=== PATIENT | male | born 1975 | race Caucasian/White ===

== ENCOUNTER 2022-07-31 01:00 | Inpatient (IN) ==
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
[2022-07-31] MEDS ORDERED: PIPERACILLIN SODIUM/TAZOBACTAM 3.375 GM in DEXTROSE 5% IN WATER 50 ML IV SCH (01:30)
[2022-07-31 01:40] LABS: POC Calcium, Ionized 1.12 (1.16-1.32); POC Creatinine 1.3 (0.6-1.2); POC Potassium 3.7 (3.3-5.1)
[2022-07-31 02:26] LABS: Basophils # (Auto) 0.05 K/mcL (0.00-0.30); Basophils % (Auto) 0.8 % (0.0-2.0); Eosinophils % (Auto) 1.5 % (0.0-7.0); Hematocrit 42.5 % (40.1-51.0); Hemoglobin 12.5 g/dL (13.7-17.5); Lymphocytes # (Auto) 1.13 K/mcL (1.50-4.80); Mean Cell Volume 89.7 fL (80.0-100.0); Mean Corpuscular HGB Conc 29.4 g/dL (31.0-36.0); Mean Platelet Volume 9.9 fL (8.8-12.5); Monocytes # (Auto) 0.72 K/mcL (0.10-0.90); Monocytes % (Auto) 10.8 % (1.0-12.0); Neutrophils % (Auto) 69.6 % (38.0-78.0); Platelet Count 155 K/mcL (140-440); RBC 4.74 M/mcL (4.63-6.08); Red Cell Distribution Width 15.1 % (11.5-14.5); WBC 6.7 K/mcL (4.5-11.0)
[2022-07-31] MEDS ORDERED: ACETAMINOPHEN 500 MG TABLET PO PRN ×2 (03:32→08:36)
[2022-07-31] MEDS: PIPERACILLIN SODIUM/TAZOBACTAM 3.375 GM in DEXTROSE 5% IN WATER 50 ML IV SCH ×2 (07:00→09:03)
[2022-07-31 08:35] LABS: ALT/SGPT 12 U/L (<40); AST/SGOT 21 U/L (<40); Albumin 3.4 gm/dL (3.2-5.2); Albumin/Globulin Ratio 0.7 (1.0-2.3); Alkaline Phosphatase 123 U/L (39-117); Bilirubin,Direct 0.5 mg/dL (<0.3); Blood Urea Nitrogen 16 mg/dL (6-20); Calcium 9.3 mg/dL (8.6-10.4); Carbon Dioxide 24 mmol/L (22-30); Chloride 98 mmol/L (96-108); Globulin 4.6 gm/dL (2.2-3.7); Glomerular Filtration Rate 65; Glucose 131 mg/dL (70-105); Lactate Dehydrogenase 263 U/L (135-225); Phosphorous 2.9 mg/dL (2.5-4.5); Triglycerides 96 mg/dL (<150); Uric Acid 7.2 mg/dL (2.5-8.0)
--- NOTE | 2022-07-31 08:49 | Internal Med History&Physical ---
HPI History of Present Illness Patient information: Note initiated : 07/31/22 at 8:41 am Service Date, if different from initiated Date: [] Patient: Mendel Ingram a 47 y/o M admitted on 07/31/22 for enlarged testicles and has suicide ideations. Chief Complaint: [] History of present illness: Mr. Ingram is a 47 year old male with a history of heart failure, hypertension, hydrocele, homelessness, morbid obesity was brought to the ED after someone overheard him talking about killing himself and called the police. In the ED, the patient denied suicidal ideation. He is frustrated because he is homeless, his vehicle is not functioning, he does not have a source of heat. Per report, the patient has been living in a truck in the local [facility] parking lot. In the ED, the patient was found to be severely volume overloaded and to have cellulitis in his scrotum and inner thighs. Patient was given IV antibiotics, hospital medicine was consulted for admission. After discussing the patient's medical history in more detail, he says that he does have a history of heart failure but has not been taking diuretics for some time because he ran out of medications. The patient says he also has obstructive sleep apnea and sleeps much better with the CPAP. A Romero catheter placement was attempted however unsuccessful because of scrotal edema. In the ED, the patient was afebrile, no leukocytosis however the patient's scrotum and inner thighs are erythematous, warm and tender suggestive of a cellulitis. This is probably been resident for some time. Patient is moderately hypertensive, creatinine was 1.3. The patient is severely volume overloaded on exam. Review of system Constitutional: no fever, fatigue, or weight loss Eyes: no vision changes or pain Cardiovascular: no chest pain, no palpitations Respiratory: no cough or dyspnea Gastrointestinal: no abdominal pain, no nausea, vomiting, or diarrhea Genitourinary: Severe scrotal edema and tenderness. Musculoskeletal: Positive for bilateral lower extremity and scrotal edema. Integumentary: Positive for redness and tenderness in scrotum, groin and inner thighs. Neurological: no focal weakness or numbness Psychiatric: Positive for anxiety and depressed mood, denies suicidal ideation. Physical exam Head: Atraumatic, normal inspection. Eyes: normal appearance, no scleral icterus. Neck: full ROM Respiratory: no respiratory distress. Cardiovascular: normal rate and rhythm, S1, S2. GI/Abdominal: Obesely distended, soft, nontender, no guarding. : Erythematous and edematous scrotum, exquisitely tender to palpation. Extremities: Bilateral 3+ pitting edema, to full range of motion, nontender. Neurological: CN II-XII intact, intact motor, intact sensation. Psychiatric: Mildly anxious. Skin: Erythematous, warmth, tenderness in scrotum, groin, inner thighs consistent with cellulitis. PFSH PFSH All Active Problems (Updated 07/31/22 @ 02:54 by Kunal Barrientos MD) Congestive heart failure (Acute) Otalgia (Acute) Sinus pressure (Acute) Headache (Acute) Anxiety (Acute) Abrasion of ankle, right (Acute) History of acute congestive heart failure (Acute) Pedal edema (Acute) Medication refill (Acute) Acute exacerbation of CHF (congestive heart failure) (Acute) Asthma exacerbation (Acute) Acute exacerbation of CHF (congestive heart failure) (Acute) Pneumonia involving right lung (Acute) Sepsis (Acute) Weakness (Acute) Erysipelas (Acute) Bilateral hydrocele (Acute) Urinary tract infection (Acute) Urinary retention (Acute) Medical History (Updated 07/31/22 @ 02:54 by Kunal Barrientos MD) Hypertension Social History (Updated 09/26/18 @ 12:38 by PAOLA Finley) smoking status: Current every day smoker and Never smoker MEDS/ALLERGIES Home Medications and Allergies Home Medications Medication Instructions Recorded Confirmed Type tamsulosin 0.4 mg capsule 0.4 mg PO HS #30 caps 09/17/18 09/26/18 Rx chlorhexidine gluconate 2 % 2 % topical .once daily #64 ea 09/25/18 09/26/18 Rx towelette mupirocin 2 % topical ointment 1 applic topical BID #30 grams 09/25/18 09/26/18 Rx lisinopril PO QDAY 09/26/18 09/26/18 History sulfamethoxazole 800 1 tab PO QDAY 09/26/18 09/26/18 History mg-trimethoprim 160 mg tablet fluticasone propionate 50 1 spray intranasal QDAY #16 grams 05/19/21 Rx mcg/actuation nasal spray,suspension (24 Hour Allergy Relief) furosemide 20 mg tablet (Lasix) 20 mg PO BID #20 tabs 12/30/21 Rx Allergies Allergy/AdvReac Type Severity Reaction Status Date / Time No Known Drug Allergies Allergy Verified 07/27/22 18:56 EXAM Constitutional Vitals: Temp Pulse Resp BP Pulse Ox O2 Del Method 98.4 F 113 H 14 159/86 92 07/31/22 08:00 07/31/22 08:00 07/31/22 08:00 07/31/22 08:00 07/31/22 08:00 07/31/22 08:00 DATA Data Completed and Pending Labs: Labs from last 24 hours 07/31/22 07/31/22 07/31/22 01:35 01:35 01:34 WBC RBC Hgb Hct POC Hct 42.0 MCV MCH MCHC RDW Plt Count MPV Immature Gran % (Auto) Neut % (Auto) Lymph % (Auto) [place] % (Auto) Eos % (Auto) Baso % (Auto) Lymph # (Auto) [place] # (Auto) Eos # (Auto) Baso # (Auto) Immature Gran # Absolute Neutrophils POC Sodium 141 Sodium 137 POC Potassium 3.7 Potassium 3.7 POC Chloride 101 Chloride 98 Carbon Dioxide 24 POC Total CO2 31.0 H Anion Gap 15.0 POC BUN 19 BUN 16 Creatinine 1.3 H POC Creatinine 1.3 H GFR Calculation 65 Glucose 131 H POC Glucose 132 H Uric Acid 7.2 Calcium 9.3 POC WB Ioniz Calcium 1.12 L Phosphorus 2.9 Magnesium 2.2 Total Bilirubin 1.0 Direct Bilirubin 0.5 H GGT 29 AST 21 ALT 12 Alkaline Phosphatase 123 H Lactate Dehydrogenase 263 H C-Reactive Protein 9.10 H NT-Pro-B Natriuret Pep 4369.0 H Total Protein 8.0 Albumin 3.4 Globulin 4.6 H Albumin/Globulin Ratio 0.7 L Triglycerides 96 07/31/22 01:34 WBC 6.7 RBC 4.74 Hgb 12.5 L Hct 42.5 POC Hct MCV 89.7 MCH 26.4 MCHC 29.4 L RDW 15.1 H Plt Count 155 MPV 9.9 Immature Gran % (Auto) 0.3 Neut % (Auto) 69.6 Lymph % (Auto) 17.0 [place] % (Auto) 10.8 Eos % (Auto) 1.5 Baso % (Auto) 0.8 Lymph # (Auto) 1.13 L [place] # (Auto) 0.72 Eos # (Auto) 0.10 Baso # (Auto) 0.05 Immature Gran # 0.02 Absolute Neutrophils 4.64 POC Sodium Sodium POC Potassium Potassium POC Chloride Chloride Carbon Dioxide POC Total CO2 Anion Gap POC BUN BUN Creatinine POC Creatinine GFR Calculation Glucose POC Glucose Uric Acid Calcium POC WB Ioniz Calcium Phosphorus Magnesium Total Bilirubin Direct Bilirubin GGT AST ALT Alkaline Phosphatase Lactate Dehydrogenase C-Reactive Protein NT-Pro-B Natriuret Pep Total Protein Albumin Globulin Albumin/Globulin Ratio Triglycerides A/P Narrative A/P Narrative: Assessment: 47 year old male with a history of heart failure, hypertension, hydrocele, homelessness, morbid obesity admitted for scrotal edema and cellulitis in the setting of anasarca likely secondary to heart failure. The patient says he ran out of his Lasix and has been accumulating fluid ever since. #Cellulitis of scrotum, groin and inner thighs #Scrotal edema likely secondary to heart failure #Anasarca likely secondary to heart failure #Acute on chronic heart failure, unspecified #Mildly elevated creatinine. #Intertrigo #Adjustment disorder #Anxiety #Obstructive sleep apnea #Severe obesity #Homelessness Plan -Ceftriaxone 2 g IV every 24 hours for now. -Start Lasix 40 mg IV every 24 hours after Romero catheter placed by urology. -Monitor renal function, urine output, daily weights. -Analgesics as needed. -Follow blood cultures x2. -Urinalysis with reflex to culture. -Ultrasound of scrotum. -Urology consulted for difficult indwelling Romero catheter placement and also to evaluate scrotum. -Transthoracic echocardiogram. -Topical nystatin for intertrigo. -Low-sodium diet. -Consider Lasix infusion depending on response to Lasix IV bolus. -DVT prophylaxis: Lovenox -CODE STATUS: Full Disposition: TBD Time Spent With Patient Time: Total time spent is greater than 50% in coordination of care (as documented) at patient's floor/unit and/or counseling patient:
[2022-07-31] MEDS ORDERED: NYSTATIN POWDER BOTTLE 15GM TOPICAL PRN (08:55)
[2022-07-31] MEDS ORDERED: LACTULOSE 20 GM/30 ML ORAL.SOL PO PRN (09:02)
[2022-07-31] MEDS ORDERED: SENNOSIDES 1 TABLET PO PRN (09:02)
[2022-07-31] MEDS ORDERED: ONDANSETRON 4 MG/2 ML VIAL IV PRN ×2 (09:02→13:10)
--- NOTE | 2022-07-31 09:45 | Urology Consult Note ---
HPI Date of Consult Consult Date: 07/31/22 Requesting physician: Torres Pino Primary Care Provider: PCP No Consult Narrative Patient Information: Note initiated : 07/31/22 at 9:44 am Service Date, if different from initiated Date: [] Patient: Mendel is a 47 year old male with a complicated medical history. He has a history of heart failure, hypertension, bilateral hydroceles,and morbid obesity.He is also evidently homeless and lives in his truck in the [facility] parking lot. He was brought to the ED last night after someone overheard him talking about killing himself and called the police. The patient denied suicidal ideation. He is frustrated because he is homeless, his vehicle is not functioning, he does not have a source of heat. He was evaluated and was found to be severely volume overloaded and to have cellulitis/edema in his scrotum and inner thighs. A Romero catheter placement was attempted but was unsuccessful due to his scrotal edema.Scrotal US was ordered and is currently being performed. Prior scrotal US was reportedly obtained this past March at [facility], a copy of the report was obtained for review. Urology consultation was obtained. In speaking with the [employer] tech it appears the the patient has significant scrotal edema without summer abscess. There are bilateral septated hydroceles that are apparently unchagned from his last scrotal US. He denies difficulty with urination and reports a good urinary stream. He reports a history of kidney stones. He reports that his nutrition is poor. Sometimes he eats. Sometimes he does not. Chief Complaint: [Incontinence, inability to place Romero catheter, Scrotal edema] Chief complaint: Incontinence, inability to place Romero catheter, Scrotal edema Reason for consult: Incontinence, inability to place Romero catheter, Scrotal edema cc:: CC: Torres Pino MD Review of Systems All systems: reviewed and no additional remarkable complaints except as stated Constitutional Constitutional: Present as per HPI, stops breathing during sleep, weakness and weight gain Cardiovascular Cardiovascular: Present edema, leg edema and pedal edema Genitourinary Genitourinary: as per HPI and scrotal swelling Integumentary Integumentary: Present swelling Psychiatric Psychiatric: Present depression and hopelessness PFSH PFSH All Active Problems (Updated 07/31/22 @ 11:04 by Darwin Newton MD) Urethral stricture (Acute) Scrotal edema (Chronic) Urinary tract infection (Acute) Urinary retention (Acute) Congestive heart failure (Chronic) Otalgia (Acute) Sinus pressure (Acute) Headache (Acute) Anxiety (Acute) Abrasion of ankle, right (Acute) History of acute congestive heart failure (Acute) Pedal edema (Acute) Medication refill (Acute) Acute exacerbation of CHF (congestive heart failure) (Acute) Asthma exacerbation (Acute) Acute exacerbation of CHF (congestive heart failure) (Acute) Pneumonia involving right lung (Acute) Sepsis (Acute) Weakness (Acute) Erysipelas (Acute) Bilateral hydrocele (Chronic) Medical History (Updated 07/31/22 @ 11:04 by Darwin Newton MD) Hypertension Social History smoking status: Current every day smoker and Never smoker MEDS/ALLERGIES Home Medications and Allergies Home Medications Medication Instructions Recorded Confirmed Type tamsulosin 0.4 mg capsule 0.4 mg PO HS #30 caps 09/17/18 09/26/18 Rx chlorhexidine gluconate 2 % 2 % topical .once daily #64 ea 09/25/18 09/26/18 Rx towelette mupirocin 2 % topical ointment 1 applic topical BID #30 grams 09/25/18 09/26/18 Rx lisinopril PO QDAY 09/26/18 09/26/18 History sulfamethoxazole 800 1 tab PO QDAY 09/26/18 09/26/18 History mg-trimethoprim 160 mg tablet fluticasone propionate 50 1 spray intranasal QDAY #16 grams 05/19/21 Rx mcg/actuation nasal spray,suspension (24 Hour Allergy Relief) furosemide 20 mg tablet (Lasix) 20 mg PO BID #20 tabs 12/30/21 Rx Allergies Allergy/AdvReac Type Severity Reaction Status Date / Time No Known Drug Allergies Allergy Verified 07/27/22 18:56 Physical Examination Vital Signs Vital signs: Temp Pulse Resp BP Pulse Ox O2 Del Method 98.4 F 113 H 14 159/86 92 07/31/22 08:00 07/31/22 08:00 07/31/22 08:00 07/31/22 08:00 07/31/22 08:38 07/31/22 08:38 General physical appearance General physical exam: well nourished, chronically ill and obese Eyes Eye exam: PERRL ENT ENT exam: normal nares and no hearing loss Head Head exam IM: Present atraumatic, normal inspection and normocephalic Neck Neck exam: trachea midline Cardiovascular Cardiovascular exam IM: Present normal rate and rhythm Respiratory Respiratory exam: normal respiratory effort Abdomen Abdomen: Present non tender Genitourinary Genitourinary (Male): Present other (The penis is burined in the suprapubic fat pad due to obestiy and edema. The tip of the penis is palpable about 5-6 cm deep.) Musculoskeletal Musculoskeletal: Present other (Not assessable as the patient is supine in bed) Psychiatric Psychiatric: Present oriented to time, oriented to person, oriented to place and speech is normal Results Labs Result diagrams: 07/31/22 01:34 07/31/22 01:34 Labs: Abnormal lab results 07/31/22 07/31/22 07/31/22 Range/Units 01:34 01:34 01:35 Hgb 12.5 L (13.7-17.5) g/dL MCHC 29.4 L (31.0-36.0) g/dL RDW 15.1 H (11.5-14.5) % Lymph # (Auto) 1.13 L (1.50-4.80) K/mcL POC Total CO2 (22-30) Creatinine 1.3 H (0.7-1.2) mg/dL POC Creatinine (0.6-1.2) Glucose 131 H (70-105) mg/dL POC Glucose (70-105) POC WB Ioniz Calcium (1.16-1.32) Direct Bilirubin 0.5 H (<0.3) mg/dL Alkaline Phosphatase 123 H (39-117) U/L Lactate Dehydrogenase 263 H (135-225) U/L C-Reactive Protein 9.10 H (0.03-0.80) mg/dL NT-Pro-B Natriuret Pep 4369.0 H (<125.0) pg/mL Globulin 4.6 H (2.2-3.7) gm/dL Albumin/Globulin Ratio 0.7 L (1.0-2.3) 07/31/22 Range/Units 01:35 Hgb (13.7-17.5) g/dL MCHC (31.0-36.0) g/dL RDW (11.5-14.5) % Lymph # (Auto) (1.50-4.80) K/mcL POC Total CO2 31.0 H (22-30) Creatinine (0.7-1.2) mg/dL POC Creatinine 1.3 H (0.6-1.2) Glucose (70-105) mg/dL POC Glucose 132 H (70-105) POC WB Ioniz Calcium 1.12 L (1.16-1.32) Direct Bilirubin (<0.3) mg/dL Alkaline Phosphatase (39-117) U/L Lactate Dehydrogenase (135-225) U/L C-Reactive Protein (0.03-0.80) mg/dL NT-Pro-B Natriuret Pep (<125.0) pg/mL Globulin (2.2-3.7) gm/dL Albumin/Globulin Ratio (1.0-2.3) Diabetes panel 07/31/22 Range/Units 01:34 Sodium 137 (133-145) mmol/L Potassium 3.7 (3.3-5.1) mmol/L Chloride 98 (96-108) mmol/L Carbon Dioxide 24 (22-30) mmol/L BUN 16 (6-20) mg/dL Creatinine 1.3 H (0.7-1.2) mg/dL Glucose 131 H (70-105) mg/dL Calcium 9.3 (8.6-10.4) mg/dL AST 21 (<40) U/L ALT 12 (<40) U/L Alkaline Phosphatase 123 H (39-117) U/L Total Protein 8.0 (5.9-8.4) gm/dL Albumin 3.4 (3.2-5.2) gm/dL Triglycerides 96 (<150) mg/dL Calcium panel 07/31/22 Range/Units 01:34 Calcium 9.3 (8.6-10.4) mg/dL Phosphorus 2.9 (2.5-4.5) mg/dL Albumin 3.4 (3.2-5.2) gm/dL Pituitary panel 07/31/22 Range/Units 01:34 Sodium 137 (133-145) mmol/L Potassium 3.7 (3.3-5.1) mmol/L Chloride 98 (96-108) mmol/L Carbon Dioxide 24 (22-30) mmol/L BUN 16 (6-20) mg/dL Creatinine 1.3 H (0.7-1.2) mg/dL Glucose 131 H (70-105) mg/dL Calcium 9.3 (8.6-10.4) mg/dL Adrenal panel 07/31/22 Range/Units 01:34 Sodium 137 (133-145) mmol/L Potassium 3.7 (3.3-5.1) mmol/L Chloride 98 (96-108) mmol/L Carbon Dioxide 24 (22-30) mmol/L BUN 16 (6-20) mg/dL Creatinine 1.3 H (0.7-1.2) mg/dL Glucose 131 H (70-105) mg/dL Calcium 9.3 (8.6-10.4) mg/dL Total Bilirubin 1.0 (0.1-1.0) mg/dL AST 21 (<40) U/L ALT 12 (<40) U/L Alkaline Phosphatase 123 H (39-117) U/L Total Protein 8.0 (5.9-8.4) gm/dL Albumin 3.4 (3.2-5.2) gm/dL All other labs normal. Imaging Additional studies: US scrotum personally reviewed. A/P Assessment and plan (1) Congestive heart failure: Status: Chronic (2) Bilateral hydrocele: Status: Chronic (3) Scrotal edema: Status: Chronic (4) Urethral stricture: Status: Acute Narrative A/P Narrative: Mendel is a 47-year-old male with multiple, significant medical problems including an exacerbation of congestive heart failure. He also has a history of chronic lower extremity and scrotal swelling and edema. He has a history of chronic persistent bilateral hydroceles. Scrotal ultrasound was performed at the bedside today which appears to be consistent with his prior scrotal ultrasound from March of this year. I reviewed today's films and I reviewed the report from his prior ultrasound. Nursing made no attempt to place a Romero catheter which was difficult due to the patient's size and edema. I made multiple attempts at bedside and was unsuccessful. I was then able to use a cystoscope to pass a wire into the urethra but was unable to place a Romero catheter due to urethral stricture. Attempts were made to dilate the urethral stricture at the bedside using S-curve dilators however this was unsuccessful as the patient was having significant discomfort. Anesthesia was consulted for sedation for the procedure whether at the bedside or in the operating room. We plan to go to the OR for sedation, urethral dilation and placement of a Romero catheter. We discussed the procedure as well as its significant risks due to the patient's health problems, CHF and nutrition status. As he does not tolerate the procedure at the bedside and needs the Romero catheter he agrees to proceed with cystoscopy, urethral dilation and Romero catheter placement with sedation. Time Spent With Patient Time: Total time spent is greater than 50% in coordination of care (as documented) at patient's floor/unit and/or counseling patient: Total time spent with greater than 50% in coordination of care (as documented) at patient's floor/unit and/or counseling patient:: Greater than 70 minutes
[2022-07-31] MEDS: HYDROcodone/APAP 5/325MG TABLET PO PRN ×3 (10:10→19:35)
[2022-07-31] MEDS: ENOXAPARIN 40 MG/0.4 ML SYRINGE SQ SCH (10:13)
[2022-07-31] MEDS: FUROSEMIDE 40 MG/4 ML VIAL IV SCH ×3 (10:13→21:12)
[2022-07-31] MEDS ORDERED: HYDROmorphone 0.5 MG/0.5 ML SYRINGE IV PRN (10:52)
[2022-07-31] MEDS ORDERED: METOPROLOL TARTRATE 5 MG/5 ML VIAL IV ONE (12:39)
[2022-07-31] MEDS ORDERED: MIDAZOLAM 2 MG/2 ML VIAL ONE (12:39)
[2022-07-31] MEDS ORDERED: PROPOFOL 200 MG/20 ML VIAL IV ONE (12:39)
[2022-07-31] MEDS ORDERED: ESMOLOL 100 MG/10 ML VIAL IV ONE (12:39)
[2022-07-31] MEDS ORDERED: METOPROLOL TARTRATE 5 MG/5 ML VIAL IV PRN (13:10)
[2022-07-31] MEDS ORDERED: KETOROLAC 30 MG/ML VIAL IV PRN (13:10)
[2022-07-31] MEDS ORDERED: ACETAMINOPHEN 1,000 MG/100 ML BAG IV ONE (13:10)
[2022-07-31] MEDS ORDERED: fentaNYL 100 MCG/2 ML VIAL IV PRN (13:10)
[2022-07-31] MEDS ORDERED: PROMETHAZINE 25 MG/ML VIAL IV PRN (13:10)
[2022-07-31] MEDS ORDERED: FLUMAZENIL 0.1 MG/ML ML IV PRN (13:10)
[2022-07-31] MEDS ORDERED: NALOXONE HCL 0.4 MG/ML VIAL IV PRN (13:10)
[2022-07-31] MEDS ORDERED: IPRATROPIUM/ALBUTEROL 3 ML AMPUL.NEB NEB PRN (13:10)
[2022-07-31] MEDS ORDERED: LACTATED RINGERS 1,000 ML IV SCH (13:15)
--- NOTE | 2022-07-31 13:23 | Operative Note ---
Brief Operative Note Date of procedure: 07/31/22 Pre-op diagnosis: CHF, generalized edema including scrotal, buried penis, uret hral stricture Post-op diagnosis: same Procedure: Dilation of urethral stricture and difficult cystoscopic assisted placement of a difficult Romero catheter over a wire, Grafts/Implants: Yes (16 Kosovan soboba tip catheter so was this considered premacular for) Anesthesia: MAC Findings: Urethral stricture and extremely difficult Romero catheter placement over wire. Complications: none Surgeon: Darwin Newton Estimated blood loss (cc): 5 Specimens Removed/Pathology: none sent Condition: stable Disposition: PACU Operative Note Operative Note: After obtaining informed consent from the patient, he was brought to the [facility] room was placed supine on the operating table. MAC anesthesia was provided. Using a flexible cystoscope passed through the opening in the suprapubic fat pad I visualized the glans penis and the meatus. I passed a stiff Glidewire through the cystoscope and under direct vision into the urethral meatus. The wire was passed into the bladder. The cystoscope was removed. A 5 Kosovan open-end ureteral catheter was passed over this wire and into the bladder. The wire was then removed. Urine was obtained. A 0.35 Kosovan extra- stiff wire was then passed through the opening ureteral catheter into the bladder. The open-ended ureteral catheter was removed. Using S-curve dilators the urethra was then dilated to 20 Kosovan with some difficulty. I then with difficulty was able to pass a 16 Kosovan soboba tip catheter over the wire and into the bladder. The wire was removed. The catheter irrigated well. The balloon was inflated with 10 mL of sterile water. It was placed to gravity marquez inanicolle. I again hand irrigated the catheter and after confirming and drained well it was placed to gravity drainage. The patient was then returned to the recovery room in guarded condition.
[2022-07-31] MEDS ORDERED: ACETAMINOPHEN 325 MG TABLET PO PRN (14:00)
[2022-07-31] MEDS: cefTRIAXone 2 GM in DEXTROSE 5% IN WATER 50 ML IV SCH (14:37)
[2022-07-31] MEDS: 0.9 % SODIUM CHLORIDE 10 ML SYRINGE IV SCH ×2 (14:37→22:00)
--- NOTE | 2022-07-31 14:50 | Ultrasound Report ---
CLINICAL INFORMATION: Pain and swelling COMPARISON: 01/31/2022. FINDINGS: Both testes are normal and symmetric in size, position, configuration and echotexture: The right is 3 x 2 cm and the left is 3.3 x 2.9 cm. no intratesticular masses. The arterial blood flow is mildly diminished in both testes on color Doppler-particularly the right. Both epididymides are normal in size and echotexture: the right is 1.7 x 1.1 cm cm left is 1.8 x 1 cm cm. A complex 5 cm septated hydrocele is adjacent to the right testicle. There is massive thickening and complexity of the scrotal wall soft tissues which could indicate inflammation or hemorrhage. IMPRESSION: 5 cm complex septated hydrocele adjacent to the right testicle. It has increased from 3.3 cm on the prior ultrasound. Massive thickening of the scrotal soft tissues bilaterally suspect cellulitis. It has increased from prior ultrasound. Mildly diminished arterial blood flow to both testes on color Doppler particularly on the right. There may be intratesticular artery compression from soft tissue swelling. Interpreted and Authenticated by: Freddie Pate 07/31/22
[2022-07-31] MEDS ORDERED: POTASSIUM CHLORIDE 20 MEQ TABLET PO ONE ×2 (16:53→22:00)
[2022-07-31] MEDS ORDERED: VANCOMYCIN PER PHARMACY IV SCH (16:56)
[2022-07-31] MEDS ORDERED: VANCOMYCIN 1,500 MG in 0.9 % SODIUM CHLORIDE 500 ML IV SCH (18:00)
[2022-07-31] MEDS: VANCOMYCIN 2,000 MG in 0.9 % SODIUM CHLORIDE 500 ML IV SCH (18:13)
[2022-07-31 19:09] LABS: Appearance,Urine CLEAR (Clear); Bilirubin,Urine NEGATIVE (Negative); Color,Urine LT. YELLOW; Creatinine, Spot Urine 16.3 mg/dL (39.0-259.0); Culture Indicated,Urine No; Glucose,Urine (UA) NEGATIVE (Negative); Ketones,Urine NEGATIVE (Negative); Leukocyte Esterase,Urine NEGATIVE /uL (Negative); Mucus,Urine FEW /hpf; Nitrate,Urine NEGATIVE (Negative); PH,Urine 5.5 (5.0-9.0); Pro:Crea Ratio 0.43 (<0.20); Protein,Urine NEGATIVE (Negative); Specific Gravity,Urine 1.015 (1.000-1.035); Urine Blood SMALL ery/mcL (Negative); Urine RBC 2 /hpf (0-3); Urine Squamous Epithelial Cell 0 /hpf (0-4); Urine WBC < 1 /hpf (0-4); Urobilinogen,Urine Normal
[2022-07-31] MEDS: DOCUSATE SODIUM 100 MG CAPSULE PO SCH (21:12)
--- NOTE | 2022-07-31 21:54 | EKG ---
[facility] Test Date: 2022-07-31 Pat Name: Mendel Ingram Department: [facility] Room: 126 Gender: Male Manager Digital: : 1975 Requested By: Torres Pino Order Number: [id number] Reading MD: Edison Ochoa Measurements Intervals [place] Rate: 111 P: 47 NV: 177 QRS: -44 QRSD: 105 T: 119 QT: 339 QTc: 461 Interpretive Statements Sinus tachycardia Left axis deviation Abnormal R-wave progression, late transition Borderline T wave abnormalities Borderline ST elevation, lateral leads Electronically Signed On 07-31-2022 21:54:07 PST by Edison Ochoa /store/[email or web address]/[id number]
[2022-08-01] MEDS: HYDROcodone/APAP 5/325MG TABLET PO PRN ×3 (03:38→20:59)
[2022-08-01] MEDS: FUROSEMIDE 40 MG/4 ML VIAL IV SCH ×3 (05:13→21:00)
[2022-08-01] MEDS: 0.9 % SODIUM CHLORIDE 10 ML SYRINGE IV SCH ×3 (05:41→21:00)
[2022-08-01 06:07] LABS: Basophils # (Auto) 0.06 K/mcL (0.00-0.30); Basophils % (Auto) 0.8 % (0.0-2.0); Eosinophils # (Auto) 0.18 K/mcL (0.00-0.70); Eosinophils % (Auto) 2.5 % (0.0-7.0); Hematocrit 41.9 % (40.1-51.0); Hemoglobin 11.8 g/dL (13.7-17.5); Lymphocytes # (Auto) 1.53 K/mcL (1.50-4.80); Lymphocytes % (Auto) 21.5 % (15.5-49.0); Mean Cell Volume 92.1 fL (80.0-100.0); Mean Corpuscular HGB Conc 28.2 g/dL (31.0-36.0); Mean Platelet Volume 9.5 fL (8.8-12.5); Monocytes # (Auto) 0.95 K/mcL (0.10-0.90); Monocytes % (Auto) 13.4 % (1.0-12.0); Neutrophils % (Auto) 61.5 % (38.0-78.0); Platelet Count 169 K/mcL (140-440); RBC 4.55 M/mcL (4.63-6.08); Red Cell Distribution Width 15.5 % (11.5-14.5); WBC 7.1 K/mcL (4.5-11.0)
[2022-08-01 06:39] LABS: ALT/SGPT 11 U/L (<40); AST/SGOT 19 U/L (<40); Albumin 3.2 gm/dL (3.2-5.2); Albumin/Globulin Ratio 0.7 (1.0-2.3); Alkaline Phosphatase 108 U/L (39-117); Bilirubin,Direct 0.3 mg/dL (<0.3); Bilirubin,Total 0.6 mg/dL (0.1-1.0); Blood Urea Nitrogen 14 mg/dL (6-20); Calcium 9.1 mg/dL (8.6-10.4); Carbon Dioxide 29 mmol/L (22-30); Chloride 98 mmol/L (96-108); Globulin 4.5 gm/dL (2.2-3.7); Glomerular Filtration Rate 65; Glucose 124 mg/dL (70-105); Lactate Dehydrogenase 217 U/L (135-225); Triglycerides 82 mg/dL (<150); Uric Acid 6.8 mg/dL (2.5-8.0)
[2022-08-01] MEDS: DOCUSATE SODIUM 100 MG CAPSULE PO SCH ×3 (08:00→21:00)
[2022-08-01] MEDS: ENOXAPARIN 40 MG/0.4 ML SYRINGE SQ SCH (08:00)
[2022-08-01] MEDS: cefTRIAXone 2 GM in DEXTROSE 5% IN WATER 50 ML IV SCH (08:00)
--- NOTE | 2022-08-01 08:06 | Internal Med Progress Note ---
SUBJECTIVE Subjective Patient information: Note initiated : 08/01/22 at 8:03 am Service Date, if different from initiated Date: [] Patient: Mendel Ingram a 47 y/o M admitted on 07/31/22 for enlarged testicles and has suicide ideations. Chief Complaint: [] Interval history: Mr. Ingram is a 47 year old male with a history of heart failure, hypertension, hydrocele, homelessness, morbid obesity was brought to the ED after someone overheard him talking about killing himself and called the police. In the ED, the patient denied suicidal ideation. He is frustrated because he is homeless, his vehicle is not functioning, he does not have a source of heat. Per report, the patient has been living in a truck in the local [facility] parking lot. In the ED, the patient was found to be severely volume overloaded and to have cellulitis in his scrotum and inner thighs. Patient was given IV antibiotics, hospital medicine was consulted for admission. After discussing the patient's medical history in more detail, he says that he does have a history of heart failure but has not been taking diuretics for some time because he ran out of medications. The patient says he also has obstructive sleep apnea and sleeps much better with the CPAP. A Romero catheter placement was attempted however unsuccessful because of scrotal edema. In the ED, the patient was afebrile, no leukocytosis however the patient's scrotum and inner thighs are erythematous, warm and tender suggestive of a cellulitis. This is probably been resident for some time. Patient is moderately hypertensive, creatinine was 1.3. The patient is severely volume overloaded on exam. 08/01 Overall improvement in clinical condition. Romero catheter placed yesterday afternoon by urology, the patient is diuresing well with Lasix IV. Renal function stable, electrolytes stable. Added vancomycin due to history of MRSA, continue ceftriaxone, for cellulitis. Echocardiogram report pending. Urine protein creatinine ratio elevated but not consistent with nephrotic syndrome. Ultrasound of scrotum showed a 5 cm complex septated hydrocele adjacent to the right testicle, increased from 3.3 cm on the prior ultrasound. Massive thickening of the scrotal tissue consistent with cellulitis. Diminished arterial blood flow to both testes on color Doppler possibly intratesticular artery compression from soft tissue swelling. Blood cultures pending. Urinalysis was negative for UTI. Physical exam Head: Atraumatic, normal inspection. Eyes: normal appearance, no scleral icterus. Neck: full ROM Respiratory: no respiratory distress. Cardiovascular: normal rate and rhythm, S1, S2. GI/Abdominal: Obesely distended, soft, nontender, no guarding. : Indwelling Romero catheter. Extremities: Bilateral 3+ pitting edema, to full range of motion, nontender. Neurological: CN II-XII intact, intact motor, intact sensation. Psychiatric: Normal mood Skin: Erythematous, warmth, tenderness in scrotum, groin, inner thighs consistent with cellulitis. Constitutional Vitals: Vital Signs Temp Pulse Resp BP Pulse Ox O2 Del Method O2 Flow Rate 98.7 F 107 H 15 131/77 93 2 08/01/22 04:00 08/01/22 06:39 08/01/22 06:39 08/01/22 06:00 08/01/22 06:39 08/01/22 07:33 08/01/22 07:33 Period Temp Pulse Resp BP Sys/Patiño Pulse Ox O2 Del Method O2 Flow Rate Last 24 Hr 97.4 F-99.1 F 99-111 15-27 131-164/73-105 68-100 CPAP-Room Air 0-6 Intake and Output 07/31/22 08/01/22 08/01/22 19:59 03:59 11:59 Intake Total 1170 1160 480 Output Total 2155 3750 2850 Balance -985 -2590 -2370 Weight 234.507 kg Intake & Output: Intake & Output 07/31/22 08/01/22 08/01/22 19:59 03:59 11:59 Intake Total 1170 1160 480 Output Total 2155 3750 2850 Balance -985 -2590 -2370 Weight 234.507 kg Intake: IV 50 500 Vancomycin 2,000 mg In Sodium 500 Chloride 0.9% 500 ml @ 250 mls/ hr IV Q12H [facility] Rx#:[id number] Rocephin 2 gm In Dextrose 5% in 50 Water 50 ml @ 100 mls/hr IV Q24H [facility] Rx#:[id number] Oral 720 660 480 IV - Manual Only 400 Output: Urine Catheter Amount 1750 3750 2850 Void Amount 400 Estimated Blood Loss 5 Other: Meal Dinner snack Percent of Meal Consumed 100% 100% Feeding Ability Independent Urine Appearance Clear Clear Uretheral (Romero) Clear Clear Clear Urine Color Dark Yellow Bright Yellow Uretheral (Romero) Dark Yellow Bright Yellow Pale Urine Odor Normal # Bowel Movements 1 0 OBJ DATA Labs CBC & Chem 7: 08/01/22 05:28 08/01/22 05:28 Labs: Abnormal Lab Results 08/01/22 08/01/22 07/31/22 05:28 05:28 16:50 RBC 4.55 L Hgb 11.8 L MCH 25.9 L MCHC 28.2 L RDW 15.5 H [place] % (Auto) 13.4 H Lymph # (Auto) [place] # (Auto) 0.95 H POC Total CO2 Creatinine 1.3 H POC Creatinine Glucose 124 H POC Glucose POC WB Ioniz Calcium Direct Bilirubin 0.3 H Alkaline Phosphatase Lactate Dehydrogenase C-Reactive Protein NT-Pro-B Natriuret Pep Globulin 4.5 H Albumin/Globulin Ratio 0.7 L Urine Occult Blood Small A Urine Mucus Few A Ur Random Creatinine U [place] Prot/Creat Ratio 07/31/22 07/31/22 07/31/22 16:50 01:35 01:35 RBC Hgb MCH MCHC RDW [place] % (Auto) Lymph # (Auto) [place] # (Auto) POC Total CO2 31.0 H Creatinine POC Creatinine 1.3 H Glucose POC Glucose 132 H POC WB Ioniz Calcium 1.12 L Direct Bilirubin Alkaline Phosphatase Lactate Dehydrogenase C-Reactive Protein NT-Pro-B Natriuret Pep 4369.0 H Globulin Albumin/Globulin Ratio Urine Occult Blood Urine Mucus Ur Random Creatinine 16.3 L U [place] Prot/Creat Ratio 0.43 H 07/31/22 07/31/22 01:34 01:34 RBC Hgb 12.5 L MCH MCHC 29.4 L RDW 15.1 H [place] % (Auto) Lymph # (Auto) 1.13 L [place] # (Auto) POC Total CO2 Creatinine 1.3 H POC Creatinine Glucose 131 H POC Glucose POC WB Ioniz Calcium Direct Bilirubin 0.5 H Alkaline Phosphatase 123 H Lactate Dehydrogenase 263 H C-Reactive Protein 9.10 H NT-Pro-B Natriuret Pep Globulin 4.6 H Albumin/Globulin Ratio 0.7 L Urine Occult Blood Urine Mucus Ur Random Creatinine U [place] Prot/Creat Ratio Meds: Medications Acetaminophen (Acetaminophen 325 Mg Tablet) 650 mg PO Q6HP PRN; Protocol PRN Reason: Per Pain Protocol Hydrocodone Bitart/Acetaminophen (Hydrocodone/Apap 5/325mg Tablet) 1 tab PO Q4HP PRN; Protocol PRN Reason: Per Pain Protocol Last Admin: 08/01/22 03:38 Dose: 1 tab Diazepam (Diazepam 2 Mg Tablet) 2 mg PO TIDP PRN PRN Reason: anxiety Docusate Sodium (Docusate Sodium 100 Mg Capsule) 100 mg PO BID [facility] Last Admin: 08/01/22 08:00 Dose: 100 mg Enoxaparin Sodium (Enoxaparin 40 Mg/0.4 Ml Syringe) 40 mg SQ DAILY [facility] Last Admin: 08/01/22 08:00 Dose: 40 mg Furosemide (Furosemide 40 Mg/4 Ml Vial) 40 mg IV Q8H [facility] Last Admin: 08/01/22 05:13 Dose: 40 mg Hydromorphone HCl (Hydromorphone 0.5 Mg/0.5 Ml Syringe) 0.5 mg IV Q1HP PRN; Protocol PRN Reason: Per Pain Protocol Ceftriaxone Sodium 2 gm/ (Dextrose) 50 mls @ 100 mls/hr IV Q24H [facility]; Protocol Last Admin: 08/01/22 08:00 Dose: 100 mls/hr Vancomycin HCl 2,000 mg/ (Sodium Chloride) 500 mls @ 250 mls/hr IV Q12H [facility] Last Infusion: 07/31/22 20:15 Dose: Infused Lactulose (Lactulose 20 Gm/30 Ml Oral.Marquita) 10 gm PO DAILYP PRN PRN Reason: Constipation Nystatin (Nystatin Powder Bottle 15gm) 1 dose TOPICAL TIDP PRN PRN Reason: Skin Irritation Ondansetron HCl (Ondansetron 4 Mg/2 Ml Vial) 4 mg IV Q4HP PRN; Protocol PRN Reason: Nausea And Vomiting Senna (Sennosides 1 Tablet) 2 tab PO HSP PRN PRN Reason: Constipation Sodium Chloride (0.9 % Sodium Chloride 10 Ml Syringe) 10 ml IV Q8 [facility] Last Admin: 08/01/22 05:41 Dose: 10 ml Vancomycin HCl (Vancomycin Per Pharmacy) 1 order IV UD [facility]; Protocol A/P Narrative A/P Narrative: Assessment: 47 year old male with a history of heart failure, hypertension, hydrocele, homelessness, morbid obesity admitted for scrotal edema and cellulitis in the setting of anasarca likely secondary to heart failure. The patient says he ran out of his Lasix and has been accumulating fluid ever since. #Cellulitis of scrotum, groin and inner thighs #Scrotal edema likely secondary to heart failure #Anasarca secondary to heart failure #Acute on chronic heart failure, unspecified #Mildly elevated creatinine. #Intertrigo #Chronic anemia #Adjustment disorder #Anxiety #Obstructive sleep apnea #Severe obesity #Homelessness Plan -Vancomycin IV and ceftriaxone 2 g IV every 24 hours for now. -Follow blood cultures x2. -Demarcate and follow cellulitis. -Lasix 40 mg IV to every 8 hours, titrate for diuresis. -Monitor renal function, urine output, daily weights. -Replace electrolytes as needed. -Analgesics as needed. -Urology was consulted for difficult indwelling Romero catheter placement and also to evaluate scrotum. -Transthoracic echocardiogram. -Topical nystatin for intertrigo. -Low-sodium diet. -DVT prophylaxis: Lovenox -CODE STATUS: Full -Disposition: TBD Time Spent With Patient Time: Total time spent is greater than 50% in coordination of care (as documented) at patient's floor/unit and/or counseling patient: QUALITY VTE Deep Vein Thrombosis/Pulmonary Embolism Present on Admission: No
[2022-08-01] MEDS ORDERED: POTASSIUM CHLORIDE 20 MEQ TABLET PO SCH (08:15)
[2022-08-01] MEDS: VANCOMYCIN 2,000 MG in 0.9 % SODIUM CHLORIDE 500 ML IV SCH ×2 (08:51→21:00)
[2022-08-02] MEDS: HYDROcodone/APAP 5/325MG TABLET PO PRN (02:11)
[2022-08-02] MEDS: 0.9 % SODIUM CHLORIDE 10 ML SYRINGE IV SCH ×4 (04:31→20:26)
[2022-08-02] MEDS: FUROSEMIDE 40 MG/4 ML VIAL IV SCH ×3 (04:31→16:55)
[2022-08-02 08:07] LABS: Basophils # (Auto) 0.05 K/mcL (0.00-0.30); Basophils % (Auto) 0.7 % (0.0-2.0); Eosinophils # (Auto) 0.14 K/mcL (0.00-0.70); Eosinophils % (Auto) 1.9 % (0.0-7.0); Hematocrit 41.6 % (40.1-51.0); Hemoglobin 12.1 g/dL (13.7-17.5); Lymphocytes # (Auto) 1.19 K/mcL (1.50-4.80); Lymphocytes % (Auto) 15.9 % (15.5-49.0); Mean Cell Volume 91.2 fL (80.0-100.0); Mean Corpuscular HGB Conc 29.1 g/dL (31.0-36.0); Mean Platelet Volume 10.4 fL (8.8-12.5); Monocytes # (Auto) 0.77 K/mcL (0.10-0.90); Monocytes % (Auto) 10.3 % (1.0-12.0); Neutrophils % (Auto) 70.9 % (38.0-78.0); Platelet Count 181 K/mcL (140-440); RBC 4.56 M/mcL (4.63-6.08); Red Cell Distribution Width 15.2 % (11.5-14.5); WBC 7.5 K/mcL (4.5-11.0)
[2022-08-02 08:24] LABS: ALT/SGPT 11 U/L (<40); AST/SGOT 19 U/L (<40); Albumin 3.4 gm/dL (3.2-5.2); Albumin/Globulin Ratio 0.8 (1.0-2.3); Alkaline Phosphatase 113 U/L (39-117); Bilirubin,Direct 0.3 mg/dL (<0.3); Bilirubin,Total 0.5 mg/dL (0.1-1.0); Blood Urea Nitrogen 15 mg/dL (6-20); Carbon Dioxide 34 mmol/L (22-30); Chloride 92 mmol/L (96-108); Globulin 4.5 gm/dL (2.2-3.7); Glomerular Filtration Rate 71; Glucose 120 mg/dL (70-105); Lactate Dehydrogenase 206 U/L (135-225); Phosphorous 4.1 mg/dL (2.5-4.5); Triglycerides 65 mg/dL (<150); Uric Acid 7.6 mg/dL (2.5-8.0)
[2022-08-02] MEDS: ENOXAPARIN 40 MG/0.4 ML SYRINGE SQ SCH (08:24)
[2022-08-02] MEDS: DOCUSATE SODIUM 100 MG CAPSULE PO SCH ×2 (08:24→20:30)
[2022-08-02] MEDS: cefTRIAXone 2 GM in DEXTROSE 5% IN WATER 50 ML IV SCH (08:24)
--- NOTE | 2022-08-02 10:01 | Internal Med Progress Note ---
SUBJECTIVE Subjective Patient information: Note initiated : 08/02/22 at 9:53 am Service Date, if different from initiated Date: [] Patient: Mendel Ingram a 47 y/o M admitted on 07/31/22 for enlarged testicles and has suicide ideations. Chief Complaint: [] Interval history: Mr. Ingram is a 47 year old male with a history of heart failure, hypertension, hydrocele, homelessness, morbid obesity was brought to the ED after someone overheard him talking about killing himself and called the police. In the ED, the patient denied suicidal ideation. He is frustrated because he is homeless, his vehicle is not functioning, he does not have a source of heat. Per report, the patient has been living in a truck in the local [facility] parking lot. In the ED, the patient was found to be severely volume overloaded and to have cellulitis in his scrotum and inner thighs. Patient was given IV antibiotics, hospital medicine was consulted for admission. After discussing the patient's medical history in more detail, he says that he does have a history of heart failure but has not been taking diuretics for some time because he ran out of medications. The patient says he also has obstructive sleep apnea and sleeps much better with the CPAP. A Romero catheter placement was attempted however unsuccessful because of scrotal edema. In the ED, the patient was afebrile, no leukocytosis however the patient's scrotum and inner thighs are erythematous, warm and tender suggestive of a cellulitis. This is probably been resident for some time. Patient is moderately hypertensive, creatinine was 1.3. The patient is severely volume overloaded on exam. 08/01 Overall improvement in clinical condition. Romero catheter placed yesterday afternoon by urology, the patient is diuresing well with Lasix IV. Renal function stable, electrolytes stable. Added vancomycin due to history of MRSA, continue ceftriaxone, for cellulitis. Echocardiogram report pending. Urine protein creatinine ratio elevated but not consistent with nephrotic syndrome. Ultrasound of scrotum showed a 5 cm complex septated hydrocele adjacent to the right testicle, increased from 3.3 cm on the prior ultrasound. Massive thickening of the scrotal tissue consistent with cellulitis. Diminished arterial blood flow to both testes on color Doppler possibly intratesticular artery compression from soft tissue swelling. Blood cultures pending. Urinalysis was negative for UTI. 08/02-patient seen in room. Bilateral lower extremity brawny induration/cellulitic change and foul-smelling odor. Diuresing well on 3 times a day Lasix. White count downtrending at 7.5, contraction alkalosis noted with bicarb at 34, creatinine 1.2, patient feels lethargic currently on noninvasive ventilation. Start Diamox for 2 doses, lower Lasix dose to 20 mg IV every 8. Continue antibiotic coverage/limb elevation/wound care/therapies and nutrition support Constitutional Vitals: Vital Signs Temp Pulse Resp BP Pulse Ox O2 Del Method O2 Flow Rate 98.5 F 104 H 19 169/90 94 3 08/02/22 08:20 08/02/22 06:01 08/02/22 08:20 08/02/22 08:20 08/02/22 08:20 08/02/22 08:20 08/02/22 04:23 Period Temp Pulse Resp BP Sys/Patiño Pulse Ox O2 Del Method O2 Flow Rate Last 24 Hr 97.0 F-98.5 F 104-116 12-27 107-169/52-101 88-99 CPAP-Room Air 3-3 Intake and Output 08/01/22 08/02/22 08/02/22 19:59 03:59 11:59 Intake Total 920 1340 50 Output Total 2500 3550 2650 Balance -1580 -2210 -2600 Weight 231.015 kg fatigue lethargic on noninvasive ventilation Nonlabored breathing Minimal anxiety Morbidly obese Brawny lower extremity induration/lymphedema with scrotal lymphedema Pendulous abdomen Intake & Output: Intake & Output 08/01/22 08/02/22 08/02/22 19:59 03:59 11:59 Intake Total 920 1340 50 Output Total 2500 3550 2650 Balance -1580 -2210 -2600 Weight 231.015 kg Intake: IV 500 50 Vancomycin 2,000 mg In Sodium 500 Chloride 0.9% 500 ml @ 250 mls/ hr IV Q12H [facility] Rx#:[id number] Rocephin 2 gm In Dextrose 5% in 50 Water 50 ml @ 100 mls/hr IV Q24H [facility] Rx#:[id number] Oral 920 840 Output: Urine Catheter Amount 2500 2450 2650 Void Amount 1100 Other: Meal Dinner snack Percent of Meal Consumed 100% 100% Feeding Ability Independent Urine Appearance Clear Clear Uretheral (Romero) Clear Urine Color Pale Yellow Pale Uretheral (Romero) Pale Stool Size Small Stool Consistency Soft # Bowel Movements 1 OBJ DATA Labs CBC & Chem 7: 08/02/22 05:32 08/02/22 05:32 Labs: Abnormal Lab Results 08/02/22 08/02/22 08/01/22 05:32 05:32 05:28 RBC 4.56 L Hgb 12.1 L MCH MCHC 29.1 L RDW 15.2 H [place] % (Auto) Lymph # (Auto) 1.19 L [place] # (Auto) Chloride 92 L Carbon Dioxide 34 H POC Total CO2 Creatinine 1.3 H POC Creatinine Glucose 120 H 124 H POC Glucose POC WB Ioniz Calcium Direct Bilirubin 0.3 H 0.3 H Alkaline Phosphatase Lactate Dehydrogenase C-Reactive Protein NT-Pro-B Natriuret Pep Globulin 4.5 H 4.5 H Albumin/Globulin Ratio 0.8 L 0.7 L Urine Occult Blood Urine Mucus Ur Random Creatinine U [place] Prot/Creat Ratio 08/01/22 07/31/22 07/31/22 05:28 16:50 16:50 RBC 4.55 L Hgb 11.8 L MCH 25.9 L MCHC 28.2 L RDW 15.5 H [place] % (Auto) 13.4 H Lymph # (Auto) [place] # (Auto) 0.95 H Chloride Carbon Dioxide POC Total CO2 Creatinine POC Creatinine Glucose POC Glucose POC WB Ioniz Calcium Direct Bilirubin Alkaline Phosphatase Lactate Dehydrogenase C-Reactive Protein NT-Pro-B Natriuret Pep Globulin Albumin/Globulin Ratio Urine Occult Blood Small A Urine Mucus Few A Ur Random Creatinine 16.3 L U [place] Prot/Creat Ratio 0.43 H 07/31/22 07/31/22 07/31/22 01:35 01:35 01:34 RBC Hgb MCH MCHC RDW [place] % (Auto) Lymph # (Auto) [place] # (Auto) Chloride Carbon Dioxide POC Total CO2 31.0 H Creatinine 1.3 H POC Creatinine 1.3 H Glucose 131 H POC Glucose 132 H POC WB Ioniz Calcium 1.12 L Direct Bilirubin 0.5 H Alkaline Phosphatase 123 H Lactate Dehydrogenase 263 H C-Reactive Protein 9.10 H NT-Pro-B Natriuret Pep 4369.0 H Globulin 4.6 H Albumin/Globulin Ratio 0.7 L Urine Occult Blood Urine Mucus Ur Random Creatinine U [place] Prot/Creat Ratio 07/31/22 01:34 RBC Hgb 12.5 L MCH MCHC 29.4 L RDW 15.1 H [place] % (Auto) Lymph # (Auto) 1.13 L [place] # (Auto) Chloride Carbon Dioxide POC Total CO2 Creatinine POC Creatinine Glucose POC Glucose POC WB Ioniz Calcium Direct Bilirubin Alkaline Phosphatase Lactate Dehydrogenase C-Reactive Protein NT-Pro-B Natriuret Pep Globulin Albumin/Globulin Ratio Urine Occult Blood Urine Mucus Ur Random Creatinine U [place] Prot/Creat Ratio Meds: Medications Acetaminophen (Acetaminophen 325 Mg Tablet) 650 mg PO Q6HP PRN; Protocol PRN Reason: Per Pain Protocol Hydrocodone Bitart/Acetaminophen (Hydrocodone/Apap 5/325mg Tablet) 1 tab PO Q4HP PRN; Protocol PRN Reason: Per Pain Protocol Last Admin: 08/02/22 02:11 Dose: 1 tab Acetazolamide Sodium (Acetazolamide Sod 500 Mg Vial) 500 mg IV DAILY [facility] Stop: 08/03/22 09:01 Diazepam (Diazepam 2 Mg Tablet) 2 mg PO TIDP PRN PRN Reason: anxiety Docusate Sodium (Docusate Sodium 100 Mg Capsule) 100 mg PO BID [facility] Last Admin: 08/02/22 08:24 Dose: 100 mg Enoxaparin Sodium (Enoxaparin 40 Mg/0.4 Ml Syringe) 40 mg SQ DAILY [facility] Last Admin: 08/02/22 08:24 Dose: 40 mg Furosemide (Furosemide 40 Mg/4 Ml Vial) 20 mg IV Q8H [facility] Hydromorphone HCl (Hydromorphone 0.5 Mg/0.5 Ml Syringe) 0.5 mg IV Q1HP PRN; Protocol PRN Reason: Per Pain Protocol Ceftriaxone Sodium 2 gm/ (Dextrose) 50 mls @ 100 mls/hr IV Q24H [facility]; Protocol Last Infusion: 08/02/22 09:08 Dose: Infused Vancomycin HCl 2,000 mg/ (Sodium Chloride) 500 mls @ 250 mls/hr IV Q12H [facility] Last Infusion: 08/01/22 23:01 Dose: Infused Lactulose (Lactulose 20 Gm/30 Ml Oral.Marquita) 10 gm PO DAILYP PRN PRN Reason: Constipation Nystatin (Nystatin Powder Bottle 15gm) 1 dose TOPICAL TIDP PRN PRN Reason: Skin Irritation Ondansetron HCl (Ondansetron 4 Mg/2 Ml Vial) 4 mg IV Q4HP PRN; Protocol PRN Reason: Nausea And Vomiting Last Admin: 08/01/22 11:00 Dose: 4 mg Senna (Sennosides 1 Tablet) 2 tab PO HSP PRN PRN Reason: Constipation Sodium Chloride (0.9 % Sodium Chloride 10 Ml Syringe) 10 ml IV Q8 [facility] Last Admin: 08/02/22 04:31 Dose: 10 ml Vancomycin HCl (Vancomycin Per Pharmacy) 1 order IV UD [facility]; Protocol A/P Narrative A/P Narrative: Assessment: 47 year old male with a history of NYHA class III systolic heart failure with EF 33%, hypertension, hydrocele, homelessness, morbid obesity admitted for scrotal edema and cellulitis in the setting of anasarca likely secondary to heart failure. The patient says he ran out of his Lasix and has been accumulating fluid ever since. * Heart failure with reduced EF 30%, continue diuretic, start extended release beta-aly/low-dose ARB. * Anasarca secondary to above on diuretics * Hypoxic hypercapnic respiratory failure secondary to CHF/CASSANDRA, on supplemental oxygen/noninvasive ventilation, check ABGs * Contraction alkalosis start Diamox * Cellulitis of scrotum, groin and inner thighs on vancomycin/Rocephin, de- escalate in 24 hours * Ureteral stricture status post Romero's placement by urology. * Hydrocele, urology on board * Intertrigo * Adjustment disorder/anxiety * CASSANDRA/morbid obesity with BMI 75 * Homeless state, case management coordinate discharge plan Plan * Continue antibiotics * Aggressive diuresis * Start beta-aly/low-dose DOMINIC inhibitor * Lower diuretic dose, start Diamox * ABG * Noninvasive ventilation * Dietary intervention/weight loss counseling * Electrolyte replacement as indicated * Physical therapy as tolerated Time Spent With Patient Time: Total time spent is greater than 50% in coordination of care (as documented) at patient's floor/unit and/or counseling patient: Total time spent with greater than 50% in coordination of care (as documented) at patient's floor/unit and/or counseling patient:: 25 - 35 minutes QUALITY VTE Deep Vein Thrombosis/Pulmonary Embolism Present on Admission: No
[2022-08-02] MEDS: acetaZOLAMIDE SOD 500 MG VIAL IV SCH (10:18)
[2022-08-02] MEDS: METOPROLOL SUCCINATE 25 MG TAB.XL.24H PO SCH (10:23)
[2022-08-02] MEDS: LOSARTAN 25 MG TABLET PO SCH (10:23)
[2022-08-02] MEDS: VANCOMYCIN 2,000 MG in 0.9 % SODIUM CHLORIDE 500 ML IV SCH (11:06)
[2022-08-02] MEDS: VANCOMYCIN 1,500 MG in 0.9 % SODIUM CHLORIDE 500 ML IV SCH (15:08)
[2022-08-03] MEDS: FUROSEMIDE 20 MG/2 ML VIAL IV SCH ×3 (02:04→17:37)
[2022-08-03] MEDS: VANCOMYCIN 1,500 MG in 0.9 % SODIUM CHLORIDE 500 ML IV SCH (02:07)
[2022-08-03] MEDS: 0.9 % SODIUM CHLORIDE 10 ML SYRINGE IV SCH ×4 (04:10→22:00)
[2022-08-03 06:55] LABS: Basophils # (Auto) 0.05 K/mcL (0.00-0.30); Basophils % (Auto) 0.7 % (0.0-2.0); Eosinophils # (Auto) 0.17 K/mcL (0.00-0.70); Eosinophils % (Auto) 2.3 % (0.0-7.0); Hematocrit 39.1 % (40.1-51.0); Hemoglobin 11.6 g/dL (13.7-17.5); Lymphocytes # (Auto) 1.13 K/mcL (1.50-4.80); Lymphocytes % (Auto) 15.4 % (15.5-49.0); Mean Cell Volume 93.1 fL (80.0-100.0); Mean Corpuscular HGB Conc 29.7 g/dL (31.0-36.0); Mean Platelet Volume 9.5 fL (8.8-12.5); Monocytes # (Auto) 0.79 K/mcL (0.10-0.90); Monocytes % (Auto) 10.7 % (1.0-12.0); Neutrophils % (Auto) 70.5 % (38.0-78.0); Platelet Count 166 K/mcL (140-440); Red Cell Distribution Width 15.6 % (11.5-14.5); WBC 7.4 K/mcL (4.5-11.0)
[2022-08-03 07:14] LABS: ALT/SGPT 10 U/L (<40); AST/SGOT 17 U/L (<40); Albumin 3.2 gm/dL (3.2-5.2); Albumin/Globulin Ratio 0.7 (1.0-2.3); Alkaline Phosphatase 110 U/L (39-117); Bilirubin,Direct 0.2 mg/dL (<0.3); Bilirubin,Total 0.4 mg/dL (0.1-1.0); Blood Urea Nitrogen 16 mg/dL (6-20); Carbon Dioxide 35 mmol/L (22-30); Chloride 91 mmol/L (96-108); Globulin 4.6 gm/dL (2.2-3.7); Glomerular Filtration Rate 79; Glucose 122 mg/dL (70-105); Lactate Dehydrogenase 260 U/L (135-225); Phosphorous 3.4 mg/dL (2.5-4.5); Triglycerides 60 mg/dL (<150)
--- NOTE | 2022-08-03 07:52 | Internal Med Progress Note ---
SUBJECTIVE Subjective Patient information: Note initiated : 08/03/22 at 7:45 am Service Date, if different from initiated Date: [] Patient: Mendel Ingram a 47 y/o M admitted on 07/31/22 for enlarged testicles and has suicide ideations. Chief Complaint: [] Interval history: Mr. Ingram is a 47 year old male with a history of heart failure, hypertension, hydrocele, homelessness, morbid obesity was brought to the ED after someone overheard him talking about killing himself and called the police. In the ED, the patient denied suicidal ideation. He is frustrated because he is homeless, his vehicle is not functioning, he does not have a source of heat. Per report, the patient has been living in a truck in the local [facility] parking lot. In the ED, the patient was found to be severely volume overloaded and to have cellulitis in his scrotum and inner thighs. Patient was given IV antibiotics, hospital medicine was consulted for admission. After discussing the patient's medical history in more detail, he says that he does have a history of heart failure but has not been taking diuretics for some time because he ran out of medications. The patient says he also has obstructive sleep apnea and sleeps much better with the CPAP. A Romero catheter placement was attempted however unsuccessful because of scrotal edema. In the ED, the patient was afebrile, no leukocytosis however the patient's scrotum and inner thighs are erythematous, warm and tender suggestive of a cellulitis. This is probably been resident for some time. Patient is moderately hypertensive, creatinine was 1.3. The patient is severely volume overloaded on exam. 08/01 Overall improvement in clinical condition. Romero catheter placed yesterday afternoon by urology, the patient is diuresing well with Lasix IV. Renal function stable, electrolytes stable. Added vancomycin due to history of MRSA, continue ceftriaxone, for cellulitis. Echocardiogram report pending. Urine protein creatinine ratio elevated but not consistent with nephrotic syndrome. Ultrasound of scrotum showed a 5 cm complex septated hydrocele adjacent to the right testicle, increased from 3.3 cm on the prior ultrasound. Massive thickening of the scrotal tissue consistent with cellulitis. Diminished arterial blood flow to both testes on color Doppler possibly intratesticular artery compression from soft tissue swelling. Blood cultures pending. Urinalysis was negative for UTI. 08/02-patient seen in room. Bilateral lower extremity brawny induration/cellulitic change and foul-smelling odor. Diuresing well on 3 times a day Lasix. White count downtrending at 7.5, contraction alkalosis noted with bicarb at 34, creatinine 1.2, patient feels lethargic currently on noninvasive ventilation. Start Diamox for 2 doses, lower Lasix dose to 20 mg IV every 8. Continue antibiotic coverage/limb elevation/wound care/therapies and nutrition support Patient was found to be extreme lethargic, confused, stat ABG 7.3/elevated PCO2, start noninvasive ventilation, transfer to ICU, patient critically ill hypercapnic respiratory failure and hypercapnic encephalopathy. 08/03-patient overnight on noninvasive ventilation. Doing a lot better. More lucid alert, repeat ABG today. White count 7.4, sodium 134, bicarb 35 currently on acetazolamide/Lasix. Echocardiogram EF 33%. Severe systolic dysfunction now on beta-aly/ARB. On 3 L oxygen, net -15,000 cc over last 72 hours. Renal function stable. Creatinine down to 1.1, further lower diuretic dose in 24 hours. Continue physical therapy/weight loss reduction counseling/dietitian intervention Constitutional Vitals: Vital Signs Temp Pulse Resp BP Pulse Ox O2 Del Method O2 Flow Rate 97.9 F 86 14 145/69 96 3 08/03/22 03:00 08/03/22 06:06 08/03/22 06:06 08/03/22 06:00 08/03/22 06:06 08/03/22 06:00 08/03/22 03:00 Period Temp Pulse Resp BP Sys/Patiño Pulse Ox O2 Del Method O2 Flow Rate Last 24 Hr 97.9 F-99.4 F 86-115 11-30 93-172/47-99 85-100 BiPAP-Nasal Cannula 3-4 Intake and Output 08/02/22 08/03/22 08/03/22 19:59 03:59 11:59 Intake Total 1180 1040 700 Output Total 1465 2750 Balance -285 -1710 700 Weight 231.015 kg 227.2 kg Morbidly obese Nonlabored breathing Lower extremity brawny induration/stasis changes On noninvasive ventilation at night, 3 to 4 L oxygen and day Intake & Output: Intake & Output 08/02/22 08/03/22 08/03/22 19:59 03:59 11:59 Intake Total 1180 1040 700 Output Total 1468 2750 Balance -285 -1710 700 Weight 231.015 kg 227.2 kg Intake: Nourishment/Supplement quantity 240 (ml) IV 500 500 Vancomycin 1,500 mg In Sodium 500 500 Chloride 0.9% 500 ml @ 333.3 mls/hr IV Q12H [facility] Rx#: [id number] Oral 680 800 200 Output: Urine Catheter Amount 1463 2750 Other: Meal Dinner snack Percent of Meal Consumed 50% 100% peaches Feeding Ability Independent Independent Nourishment/Supplement name cereal Urine Appearance Clear Clear Uretheral (Romero) Clear Urine Color Yellow Yellow Uretheral (Romero) Yellow Blood Tinged Urine Odor Normal Normal OBJ DATA Labs CBC & Chem 7: 08/03/22 04:43 08/03/22 04:42 Labs: Abnormal Lab Results 08/03/22 08/03/22 08/02/22 04:43 04:42 10:21 RBC 4.20 L Hgb 11.6 L Hct 39.1 L MCH MCHC 29.7 L RDW 15.6 H Lymph % (Auto) 15.4 L [place] % (Auto) Lymph # (Auto) 1.13 L [place] # (Auto) POC pH 7.31 L POC pCO2 86.0 H* POC pO2 107 H POC HCO3 42.9 H POC Total CO2 46.0 H* POC ABG Base Excess 17.0 H Chloride 91 L Carbon Dioxide 35 H Creatinine Glucose 122 H Direct Bilirubin Alkaline Phosphatase Lactate Dehydrogenase 260 H C-Reactive Protein Globulin 4.6 H Albumin/Globulin Ratio 0.7 L Urine Occult Blood Urine Mucus Ur Random Creatinine U [place] Prot/Creat Ratio 08/02/22 08/02/22 08/01/22 05:32 05:32 05:28 RBC 4.56 L Hgb 12.1 L Hct MCH MCHC 29.1 L RDW 15.2 H Lymph % (Auto) [place] % (Auto) Lymph # (Auto) 1.19 L [place] # (Auto) POC pH POC pCO2 POC pO2 POC HCO3 POC Total CO2 POC ABG Base Excess Chloride 92 L Carbon Dioxide 34 H Creatinine 1.3 H Glucose 120 H 124 H Direct Bilirubin 0.3 H 0.3 H Alkaline Phosphatase Lactate Dehydrogenase C-Reactive Protein Globulin 4.5 H 4.5 H Albumin/Globulin Ratio 0.8 L 0.7 L Urine Occult Blood Urine Mucus Ur Random Creatinine U [place] Prot/Creat Ratio 08/01/22 07/31/22 07/31/22 05:28 16:50 16:50 RBC 4.55 L Hgb 11.8 L Hct MCH 25.9 L MCHC 28.2 L RDW 15.5 H Lymph % (Auto) [place] % (Auto) 13.4 H Lymph # (Auto) [place] # (Auto) 0.95 H POC pH POC pCO2 POC pO2 POC HCO3 POC Total CO2 POC ABG Base Excess Chloride Carbon Dioxide Creatinine Glucose Direct Bilirubin Alkaline Phosphatase Lactate Dehydrogenase C-Reactive Protein Globulin Albumin/Globulin Ratio Urine Occult Blood Small A Urine Mucus Few A Ur Random Creatinine 16.3 L U [place] Prot/Creat Ratio 0.43 H 07/31/22 01:34 RBC Hgb Hct MCH MCHC RDW Lymph % (Auto) [place] % (Auto) Lymph # (Auto) [place] # (Auto) POC pH POC pCO2 POC pO2 POC HCO3 POC Total CO2 POC ABG Base Excess Chloride Carbon Dioxide Creatinine 1.3 H Glucose 131 H Direct Bilirubin 0.5 H Alkaline Phosphatase 123 H Lactate Dehydrogenase 263 H C-Reactive Protein 9.10 H Globulin 4.6 H Albumin/Globulin Ratio 0.7 L Urine Occult Blood Urine Mucus Ur Random Creatinine U [place] Prot/Creat Ratio Meds: Medications Acetaminophen (Acetaminophen 325 Mg Tablet) 650 mg PO Q6HP PRN; Protocol PRN Reason: Per Pain Protocol Hydrocodone Bitart/Acetaminophen (Hydrocodone/Apap 5/325mg Tablet) 1 tab PO Q4HP PRN; Protocol PRN Reason: Per Pain Protocol Last Admin: 08/02/22 02:11 Dose: 1 tab Acetazolamide Sodium (Acetazolamide Sod 500 Mg Vial) 500 mg IV DAILY [facility] Stop: 08/03/22 09:01 Last Admin: 08/02/22 10:18 Dose: 500 mg Diazepam (Diazepam 2 Mg Tablet) 2 mg PO TIDP PRN PRN Reason: anxiety Docusate Sodium (Docusate Sodium 100 Mg Capsule) 100 mg PO BID [facility] Last Admin: 08/02/22 20:30 Dose: Not Given Enoxaparin Sodium (Enoxaparin 40 Mg/0.4 Ml Syringe) 40 mg SQ DAILY [facility] Last Admin: 08/02/22 08:24 Dose: 40 mg Furosemide (Furosemide 20 Mg/2 Ml Vial) 20 mg IV Q8H [facility] Last Admin: 08/03/22 02:04 Dose: 20 mg Hydromorphone HCl (Hydromorphone 0.5 Mg/0.5 Ml Syringe) 0.5 mg IV Q1HP PRN; Protocol PRN Reason: Per Pain Protocol Ceftriaxone Sodium 2 gm/ (Dextrose) 50 mls @ 100 mls/hr IV Q24H [facility]; Protocol Last Infusion: 08/02/22 09:08 Dose: Infused Vancomycin HCl 1,500 mg/ (Sodium Chloride) 500 mls @ 333.3 mls/hr IV Q12H [facility] Last Infusion: 08/03/22 04:02 Dose: Infused Lactulose (Lactulose 20 Gm/30 Ml Oral.Marquita) 10 gm PO DAILYP PRN PRN Reason: Constipation Losartan Potassium (Losartan 25 Mg Tablet) 25 mg PO DAILY [facility] Last Admin: 08/02/22 10:23 Dose: 25 mg Metoprolol Succinate (Metoprolol Succinate 25 Mg Tab.Xl.24h) 12.5 mg PO DAILY [facility] Last Admin: 08/02/22 10:23 Dose: 12.5 mg Nystatin (Nystatin Powder Bottle 15gm) 1 dose TOPICAL TIDP PRN PRN Reason: Skin Irritation Last Admin: 08/02/22 20:00 Dose: 1 dose Ondansetron HCl (Ondansetron 4 Mg/2 Ml Vial) 4 mg IV Q4HP PRN; Protocol PRN Reason: Nausea And Vomiting Last Admin: 08/01/22 11:00 Dose: 4 mg Senna (Sennosides 1 Tablet) 2 tab PO HSP PRN PRN Reason: Constipation Sodium Chloride (0.9 % Sodium Chloride 10 Ml Syringe) 10 ml IV Q8 [facility] Last Admin: 08/03/22 06:07 Dose: 10 ml Vancomycin HCl (Vancomycin Per Pharmacy) 1 order IV UD [facility]; Protocol A/P Narrative A/P Narrative: Assessment: 47 year old male with a history of NYHA class III systolic heart failure with EF 33%, hypertension, hydrocele, homelessness, morbid obesity admitted for scrotal edema and cellulitis in the setting of anasarca likely secondary to heart failure. The patient says he ran out of his Lasix and has been accumulating fluid ever since. * Acute respiratory failure with hypercapnia/hypercapnic encephalopathy clinically improving on noninvasive ventilation, ABG 7.. Repeat ABG today. * Heart failure with reduced EF 30%, continue diuretic, start extended release beta-aly/low-dose ARB. * Anasarca secondary to above on diuretics, net -15,000 cc over 72 hours * Contraction alkalosis , responding to Diamox * Cellulitis of scrotum, groin and inner thighs on vancomycin/Rocephin, DC vancomycin * Ureteral stricture status post Romero's placement by urology. * Hydrocele, urology on board, creatinine improving with diuresis * Intertrigo * Adjustment disorder/anxiety * CASSANDRA/morbid obesity with BMI 75 * Homeless state, case management coordinate discharge plan Plan * DC vancomycin, continue Rocephin * Lower diuretic dose in 24 hours * Continue beta-aly/low-dose ARB for depressed EF. Schedule cardiology consultation on discharge * Lower diuretic dose, start Diamox * Repeat ABG * Continue noninvasive ventilation, recommend outpatient sleep study * Dietary intervention/weight loss counseling * Electrolyte replacement as indicated * Physical therapy as tolerated * Discharge planning Time Spent With Patient Time: Total time spent is greater than 50% in coordination of care (as documented) at patient's floor/unit and/or counseling patient: QUALITY VTE Deep Vein Thrombosis/Pulmonary Embolism Present on Admission: No
[2022-08-03] MEDS: LOSARTAN 25 MG TABLET PO SCH (08:40)
[2022-08-03] MEDS: DOCUSATE SODIUM 100 MG CAPSULE PO SCH ×2 (08:41→22:13)
[2022-08-03] MEDS: acetaZOLAMIDE SOD 500 MG VIAL IV SCH (08:41)
[2022-08-03] MEDS: cefTRIAXone 2 GM in DEXTROSE 5% IN WATER 50 ML IV SCH (08:41)
[2022-08-03] MEDS: ENOXAPARIN 40 MG/0.4 ML SYRINGE SQ SCH (08:41)
[2022-08-03] MEDS: METOPROLOL SUCCINATE 25 MG TAB.XL.24H PO SCH (08:42)
[2022-08-03] MEDS: HYDROcodone/APAP 5/325MG TABLET PO PRN ×2 (14:02→19:28)
[2022-08-03] MEDS: DIAZEPAM 2 MG TABLET PO PRN (19:28)
[2022-08-04] MEDS: HYDROcodone/APAP 5/325MG TABLET PO PRN ×5 (01:15→20:27)
[2022-08-04] MEDS: FUROSEMIDE 20 MG/2 ML VIAL IV SCH ×2 (01:45→09:15)
[2022-08-04] MEDS: 0.9 % SODIUM CHLORIDE 10 ML SYRINGE IV SCH ×4 (01:58→20:19)
[2022-08-04 07:11] LABS: Basophils # (Auto) 0.05 K/mcL (0.00-0.30); Basophils % (Auto) 0.9 % (0.0-2.0); Eosinophils % (Auto) 3.7 % (0.0-7.0); Hematocrit 38.9 % (40.1-51.0); Hemoglobin 11.3 g/dL (13.7-17.5); Lymphocytes # (Auto) 1.22 K/mcL (1.50-4.80); Lymphocytes % (Auto) 22.8 % (15.5-49.0); Mean Platelet Volume 9.9 fL (8.8-12.5); Monocytes # (Auto) 0.68 K/mcL (0.10-0.90); Monocytes % (Auto) 12.7 % (1.0-12.0); Neutrophils % (Auto) 59.5 % (38.0-78.0); Platelet Count 160 K/mcL (140-440); RBC 4.23 M/mcL (4.63-6.08); Red Cell Distribution Width 15.3 % (11.5-14.5); WBC 5.4 K/mcL (4.5-11.0)
[2022-08-04 07:32] LABS: ALT/SGPT 11 U/L (<40); AST/SGOT 22 U/L (<40); Albumin 3.1 gm/dL (3.2-5.2); Albumin/Globulin Ratio 0.7 (1.0-2.3); Alkaline Phosphatase 100 U/L (39-117); Bilirubin,Total 0.3 mg/dL (0.1-1.0); Blood Urea Nitrogen 18 mg/dL (6-20); Carbon Dioxide 33 mmol/L (22-30); Chloride 93 mmol/L (96-108); Globulin 4.4 gm/dL (2.2-3.7); Glomerular Filtration Rate 79; Glucose 88 mg/dL (70-105)
[2022-08-04] MEDS: cefTRIAXone 2 GM in DEXTROSE 5% IN WATER 50 ML IV SCH (09:15)
[2022-08-04] MEDS: LOSARTAN 25 MG TABLET PO SCH (09:15)
[2022-08-04] MEDS: SPIRONOLACTONE 25 MG TABLET PO SCH (09:15)
[2022-08-04] MEDS: DOCUSATE SODIUM 100 MG CAPSULE PO SCH ×2 (09:16→20:19)
[2022-08-04] MEDS: ENOXAPARIN 40 MG/0.4 ML SYRINGE SQ SCH (09:16)
[2022-08-04] MEDS: METOPROLOL SUCCINATE 25 MG TAB.XL.24H PO SCH (09:16)
[2022-08-04] MEDS ORDERED: NICOTINE 21 MG PATCH TOPICAL SCH (10:00)
--- NOTE | 2022-08-04 11:07 | Internal Med Progress Note ---
SUBJECTIVE Subjective Patient information: Note initiated : 08/04/22 at 11:01 am Service Date, if different from initiated Date: [] Patient: Mendel Ingram a 47 y/o M admitted on 07/31/22 for enlarged testicles and has suicide ideations. Chief Complaint: [] Interval history: Mr. Ingram is a 47 year old male with a history of heart failure, hypertension, hydrocele, homelessness, morbid obesity was brought to the ED after someone overheard him talking about killing himself and called the police. In the ED, the patient denied suicidal ideation. He is frustrated because he is homeless, his vehicle is not functioning, he does not have a source of heat. Per report, the patient has been living in a truck in the local [facility] parking lot. In the ED, the patient was found to be severely volume overloaded and to have cellulitis in his scrotum and inner thighs. Patient was given IV antibiotics, hospital medicine was consulted for admission. After discussing the patient's medical history in more detail, he says that he does have a history of heart failure but has not been taking diuretics for some time because he ran out of medications. The patient says he also has obstructive sleep apnea and sleeps much better with the CPAP. A Romero catheter placement was attempted however unsuccessful because of scrotal edema. In the ED, the patient was afebrile, no leukocytosis however the patient's scrotum and inner thighs are erythematous, warm and tender suggestive of a cellulitis. This is probably been resident for some time. Patient is moderately hypertensive, creatinine was 1.3. The patient is severely volume overloaded on exam. 08/01 Overall improvement in clinical condition. Romero catheter placed yesterday afternoon by urology, the patient is diuresing well with Lasix IV. Renal function stable, electrolytes stable. Added vancomycin due to history of MRSA, continue ceftriaxone, for cellulitis. Echocardiogram report pending. Urine protein creatinine ratio elevated but not consistent with nephrotic syndrome. Ultrasound of scrotum showed a 5 cm complex septated hydrocele adjacent to the right testicle, increased from 3.3 cm on the prior ultrasound. Massive thickening of the scrotal tissue consistent with cellulitis. Diminished arterial blood flow to both testes on color Doppler possibly intratesticular artery compression from soft tissue swelling. Blood cultures pending. Urinalysis was negative for UTI. 08/02-patient seen in room. Bilateral lower extremity brawny induration/cellulitic change and foul-smelling odor. Diuresing well on 3 times a day Lasix. White count downtrending at 7.5, contraction alkalosis noted with bicarb at 34, creatinine 1.2, patient feels lethargic currently on noninvasive ventilation. Start Diamox for 2 doses, lower Lasix dose to 20 mg IV every 8. Continue antibiotic coverage/limb elevation/wound care/therapies and nutrition support Patient was found to be extreme lethargic, confused, stat ABG 7.3/elevated PCO2, start noninvasive ventilation, transfer to ICU, patient critically ill hypercapnic respiratory failure and hypercapnic encephalopathy. 08/03-patient overnight on noninvasive ventilation. Doing a lot better. More lucid alert, repeat ABG today. White count 7.4, sodium 134, bicarb 35 currently on acetazolamide/Lasix. Echocardiogram EF 33%. Severe systolic dysfunction now on beta-aly/ARB. On 3 L oxygen, net -15,000 cc over last 72 hours. Renal function stable. Creatinine down to 1.1, further lower diuretic dose in 24 hours. Continue physical therapy/weight loss reduction counseling/dietitian intervention 08/04: Patient is continue switching between BiPAP and nasal cannula oxygen's throughout the night and currently on 2 L/min of nasal cannula oxygen's. Continue to have good diuresis. Patient is complaining of improving degree of shortness of breath. The day we of the swelling of his scrotum and lower extremities has also improved. We will keep the patient in the PCU due to the fact that he is still on BiPAP part of the time. Switched Lasix from IV to 40 Mg p.o. twice daily. Finished Diamox. Continued metoprolol XL, losartan, and Aldactone as part of the management of his congestive heart failure exacerbations. Continue to wean down or off oxygen therapy as tolerated. Continue Rocephin for scrotal/bilateral inner thigh cellulitis. We will keep the Romero catheter in place as per urologist recommendations. Pending SNF placement when clinically ready. Constitutional Vitals: Vital Signs Temp Pulse Resp BP Pulse Ox O2 Del Method O2 Flow Rate 36.1 C 95 H 17 104/60 92 2 08/04/22 08:00 08/04/22 10:24 08/04/22 10:24 08/04/22 10:24 08/04/22 10:24 08/04/22 10:24 08/04/22 10:24 Period Temp Pulse Resp BP Sys/Patiño Pulse Ox O2 Del Method O2 Flow Rate Last 24 Hr 36.1 C-36.9 C 88-99 12-28 103-129/48-76 90-100 BiPAP-Room Air 2-3 Intake and Output 08/03/22 08/04/22 08/04/22 19:59 03:59 11:59 Intake Total 480 480 770 Output Total 475 1065 750 Balance 5 -585 20 Weight 225.2 kg Intake & Output: Intake & Output 08/03/22 08/04/22 08/04/22 19:59 03:59 11:59 Intake Total 480 480 770 Output Total 475 1065 750 Balance 5 -585 20 Weight 225.2 kg Intake: IV 50 Rocephin 2 gm In Dextrose 5% in 50 Water 50 ml @ 100 mls/hr IV Q24H [facility] Rx#:[id number] Oral 480 480 720 Output: Urine Catheter Amount 475 1065 750 Other: Meal Dinner Snack Breakfast Percent of Meal Consumed 100% 100% 100% Feeding Ability Independent Independent Independent Urine Appearance Clear Clear Clear Uretheral (Romero) Clear Urine Color Bright Yellow Yellow Yellow Uretheral (Romero) Yellow Urine Odor Normal Stool Size Moderate Stool Color Brown Stool Consistency Formed # Bowel Movements 1 Head Head exam: Present atraumatic and normal inspection Eye Eye exam: Present normal appearance ENT ENT exam: Present mucous membranes moist, normal exam and normal external ear exam Additional comments: Nasal cannula in place Neck Neck exam: Present normal inspection Respiratory Respiratory exam: Present decreased breath sounds Cardiovascular Cardiovascular exam: Present normal rate and rhythm GI/Abdominal GI/Abdominal exam: Present normal bowel sounds exam: Present scrotal swelling; Absent normal inspection External exam: Present swelling Additional comments: Romero catheter in place Scrotal swelling, warmth to touch, tenderness to touch Extremities Exam Extremities exam: Present pedal edema; Absent normal inspection Additional comments: Bilateral inner thigh swelling, warmth, tenderness to touch Bilateral lower extremities induration, swelling, erythema Back Exam Back exam: Present normal inspection Neurological Exam Neurological exam: Present alert and oriented X3 Skin Skin exam: Present intact and warm OBJ DATA Labs CBC & Chem 7: 08/04/22 05:07 11/24/22 05:07 Labs: Abnormal Lab Results 08/04/22 08/04/22 08/03/22 05:07 05:07 08:24 RBC 4.23 L Hgb 11.3 L Hct 38.9 L MCHC 29.0 L RDW 15.3 H Lymph % (Auto) [place] % (Auto) 12.7 H Lymph # (Auto) 1.22 L POC pH 7.33 L POC pCO2 78.3 H* POC pO2 76 L POC HCO3 40.9 H POC Total CO2 43.0 H* POC ABG Base Excess 15.0 H Hgb O2 Saturation 93.0 L Chloride 93 L Carbon Dioxide 33 H Glucose Direct Bilirubin Lactate Dehydrogenase Albumin 3.1 L Globulin 4.4 H Albumin/Globulin Ratio 0.7 L 08/03/22 08/03/22 08/02/22 04:43 04:42 10:21 RBC 4.20 L Hgb 11.6 L Hct 39.1 L MCHC 29.7 L RDW 15.6 H Lymph % (Auto) 15.4 L [place] % (Auto) Lymph # (Auto) 1.13 L POC pH 7.31 L POC pCO2 86.0 H* POC pO2 107 H POC HCO3 42.9 H POC Total CO2 46.0 H* POC ABG Base Excess 17.0 H Hgb O2 Saturation Chloride 91 L Carbon Dioxide 35 H Glucose 122 H Direct Bilirubin Lactate Dehydrogenase 260 H Albumin Globulin 4.6 H Albumin/Globulin Ratio 0.7 L 08/02/22 08/02/22 05:32 05:32 RBC 4.56 L Hgb 12.1 L Hct MCHC 29.1 L RDW 15.2 H Lymph % (Auto) [place] % (Auto) Lymph # (Auto) 1.19 L POC pH POC pCO2 POC pO2 POC HCO3 POC Total CO2 POC ABG Base Excess Hgb O2 Saturation Chloride 92 L Carbon Dioxide 34 H Glucose 120 H Direct Bilirubin 0.3 H Lactate Dehydrogenase Albumin Globulin 4.5 H Albumin/Globulin Ratio 0.8 L Meds: Medications Acetaminophen (Acetaminophen 325 Mg Tablet) 650 mg PO Q6HP PRN; Protocol PRN Reason: Per Pain Protocol Hydrocodone Bitart/Acetaminophen (Hydrocodone/Apap 5/325mg Tablet) 1 tab PO Q4HP PRN; Protocol PRN Reason: Per Pain Protocol Last Admin: 08/04/22 09:16 Dose: 1 tab Diazepam (Diazepam 2 Mg Tablet) 2 mg PO TIDP PRN PRN Reason: anxiety Last Admin: 08/03/22 19:28 Dose: 2 mg Docusate Sodium (Docusate Sodium 100 Mg Capsule) 100 mg PO BID [facility] Last Admin: 08/04/22 09:16 Dose: Not Given Enoxaparin Sodium (Enoxaparin 40 Mg/0.4 Ml Syringe) 40 mg SQ DAILY [facility] Last Admin: 08/04/22 09:16 Dose: 40 mg Furosemide (Furosemide 40 Mg Tablet) 40 mg PO BIDD [facility] Hydromorphone HCl (Hydromorphone 0.5 Mg/0.5 Ml Syringe) 0.5 mg IV Q1HP PRN; Protocol PRN Reason: Per Pain Protocol Ceftriaxone Sodium 2 gm/ (Dextrose) 50 mls @ 100 mls/hr IV Q24H [facility]; Protocol Last Infusion: 08/04/22 09:58 Dose: Infused Lactulose (Lactulose 20 Gm/30 Ml Oral.Marquita) 10 gm PO DAILYP PRN PRN Reason: Constipation Losartan Potassium (Losartan 25 Mg Tablet) 25 mg PO DAILY [facility] Last Admin: 08/04/22 09:15 Dose: 25 mg Metoprolol Succinate (Metoprolol Succinate 25 Mg Tab.Xl.24h) 12.5 mg PO DAILY [facility] Last Admin: 08/04/22 09:16 Dose: 12.5 mg Nystatin (Nystatin Powder Bottle 15gm) 1 dose TOPICAL TIDP PRN PRN Reason: Skin Irritation Last Admin: 08/02/22 20:00 Dose: 1 dose Ondansetron HCl (Ondansetron 4 Mg/2 Ml Vial) 4 mg IV Q4HP PRN; Protocol PRN Reason: Nausea And Vomiting Last Admin: 08/01/22 11:00 Dose: 4 mg Senna (Sennosides 1 Tablet) 2 tab PO HSP PRN PRN Reason: Constipation Sodium Chloride (0.9 % Sodium Chloride 10 Ml Syringe) 10 ml IV Q8 [facility] Last Admin: 08/04/22 06:21 Dose: 10 ml Spironolactone (Spironolactone 25 Mg Tablet) 25 mg PO DAILY [facility] Last Admin: 08/04/22 09:15 Dose: 25 mg A/P Assessment and plan (1) Cellulitis of scrotum: Status: Acute (2) Urinary retention: Status: Acute (3) Acute exacerbation of CHF (congestive heart failure): Status: Acute Qualifiers: Heart failure type: right-sided Qualified Code(s): I50.813 - Acute on chronic right heart failure (4) Morbid obesity: Status: Acute (5) Obstructive sleep apnea: Status: Acute (6) Anasarca: Status: Acute (7) Anemia, normocytic normochromic: Status: Acute Narrative A/P Narrative: Assessment and Plans: 1. Systolic CHF exacerbation with LVEF 33%: Inpatient PCU Supplemental oxygen therapy, currently between BiPAP 18/8cmH2O and FiO2 25%, and nasal cannula oxygen Low sodium diet Daily weigh Strict intake and output Finished Diamox Lasix IV to 40mg PO BID Aldactone Metoprolol XL Losartan Physical therapy, pending SNF placement Need cardiology outpatient referral 2. Scrotal swelling, anasarca, and cellulitis: Continue diuresis, see above Continue Rocephin Blood culture no growth to date MRSA screening negative, d/c Vancomycin 3. 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 Anemia, normocytic normochromic: cbc w/ auto diff in the morning to trend H/H 5. Ureteral stricture: s/p Romero catheter placement by urologist Dr. Newton, will leave it in place for now Need urology outpatient follow up 6. Obstructive sleep apnea: BiPAP at night while sleeping as needed Need outpatient sleep study, to be arranged by PCP GI ppx: Not currently indicated DVT ppx: Lovenox Code status: Full Prognosis: guarded Disposition: Inpatient PCU; Physical therapy, pending SNF placement Time Spent With Patient Time: Total time spent is greater than 50% in coordination of care (as documented) at patient's floor/unit and/or counseling patient: Total time spent with greater than 50% in coordination of care (as documented) at patient's floor/unit and/or counseling patient:: 35 - 50 minutes QUALITY VTE Deep Vein Thrombosis/Pulmonary Embolism Present on Admission: No
[2022-08-04] MEDS: NICOTINE POLACRILEX 2 MG GUM CHEW/PARK PRN (11:36)
[2022-08-04] MEDS: NICOTINE 21 MG PATCH TOPICAL SCH (11:38)
[2022-08-04] MEDS: DIAZEPAM 2 MG TABLET PO PRN ×2 (13:11→20:28)
[2022-08-04] MEDS: FUROSEMIDE 40 MG TABLET PO SCH (14:41)
[2022-08-05] MEDS: HYDROcodone/APAP 5/325MG TABLET PO PRN ×4 (02:35→19:12)
[2022-08-05] MEDS: 0.9 % SODIUM CHLORIDE 10 ML SYRINGE IV SCH ×3 (05:41→22:00)
[2022-08-05 06:25] LABS: Basophils # (Auto) 0.04 K/mcL (0.00-0.30); Basophils % (Auto) 0.8 % (0.0-2.0); Eosinophils # (Auto) 0.21 K/mcL (0.00-0.70); Hematocrit 39.4 % (40.1-51.0); Hemoglobin 11.3 g/dL (13.7-17.5); Lymphocytes % (Auto) 22.9 % (15.5-49.0); Mean Cell Volume 91.8 fL (80.0-100.0); Mean Corpuscular HGB Conc 28.7 g/dL (31.0-36.0); Mean Platelet Volume 9.7 fL (8.8-12.5); Monocytes # (Auto) 0.65 K/mcL (0.10-0.90); Monocytes % (Auto) 12.4 % (1.0-12.0); Neutrophils % (Auto) 59.5 % (38.0-78.0); Platelet Count 177 K/mcL (140-440); RBC 4.29 M/mcL (4.63-6.08); Red Cell Distribution Width 15.4 % (11.5-14.5); WBC 5.3 K/mcL (4.5-11.0)
[2022-08-05 07:01] LABS: ALT/SGPT 11 U/L (<40); AST/SGOT 22 U/L (<40); Albumin 3.1 gm/dL (3.2-5.2); Albumin/Globulin Ratio 0.7 (1.0-2.3); Alkaline Phosphatase 101 U/L (39-117); Bilirubin,Total 0.4 mg/dL (0.1-1.0); Blood Urea Nitrogen 18 mg/dL (6-20); Calcium 9.5 mg/dL (8.6-10.4); Carbon Dioxide 36 mmol/L (22-30); Chloride 95 mmol/L (96-108); Globulin 4.4 gm/dL (2.2-3.7); Glomerular Filtration Rate 79; Glucose 132 mg/dL (70-105)
[2022-08-05] MEDS: FUROSEMIDE 40 MG TABLET PO SCH ×2 (07:23→15:48)
[2022-08-05] MEDS: NICOTINE POLACRILEX 2 MG GUM CHEW/PARK PRN ×2 (07:33→13:34)
[2022-08-05] MEDS: DIAZEPAM 2 MG TABLET PO PRN ×3 (08:30→22:38)
[2022-08-05] MEDS: DOCUSATE SODIUM 100 MG CAPSULE PO SCH ×2 (08:39→19:24)
[2022-08-05] MEDS: SPIRONOLACTONE 25 MG TABLET PO SCH (08:39)
[2022-08-05] MEDS: METOPROLOL SUCCINATE 25 MG TAB.XL.24H PO SCH (08:40)
[2022-08-05] MEDS: LOSARTAN 25 MG TABLET PO SCH (08:40)
[2022-08-05] MEDS: ENOXAPARIN 40 MG/0.4 ML SYRINGE SQ SCH (08:40)
[2022-08-05] MEDS: cefTRIAXone 2 GM in DEXTROSE 5% IN WATER 50 ML IV SCH (09:11)
[2022-08-05] MEDS: NICOTINE 21 MG PATCH TOPICAL SCH (09:12)
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
[2022-08-06] MEDS: HYDROcodone/APAP 5/325MG TABLET PO PRN ×2 (01:26→16:17)
[2022-08-06] MEDS: 0.9 % SODIUM CHLORIDE 10 ML SYRINGE IV SCH ×3 (05:43→22:00)
[2022-08-06 06:39] LABS: Basophils # (Auto) 0.04 K/mcL (0.00-0.30); Basophils % (Auto) 0.8 % (0.0-2.0); Eosinophils # (Auto) 0.17 K/mcL (0.00-0.70); Eosinophils % (Auto) 3.6 % (0.0-7.0); Hematocrit 38.2 % (40.1-51.0); Lymphocytes # (Auto) 1.23 K/mcL (1.50-4.80); Lymphocytes % (Auto) 25.7 % (15.5-49.0); Mean Cell Volume 91.4 fL (80.0-100.0); Mean Corpuscular HGB Conc 28.8 g/dL (31.0-36.0); Mean Platelet Volume 9.6 fL (8.8-12.5); Monocytes # (Auto) 0.53 K/mcL (0.10-0.90); Monocytes % (Auto) 11.1 % (1.0-12.0); Neutrophils % (Auto) 58.6 % (38.0-78.0); Platelet Count 158 K/mcL (140-440); RBC 4.18 M/mcL (4.63-6.08); Red Cell Distribution Width 15.6 % (11.5-14.5); WBC 4.8 K/mcL (4.5-11.0)
[2022-08-06 07:04] LABS: ALT/SGPT 10 U/L (<40); AST/SGOT 17 U/L (<40); Albumin 3.2 gm/dL (3.2-5.2); Albumin/Globulin Ratio 0.8 (1.0-2.3); Alkaline Phosphatase 92 U/L (39-117); Bilirubin,Total 0.3 mg/dL (0.1-1.0); Blood Urea Nitrogen 19 mg/dL (6-20); Calcium 9.1 mg/dL (8.6-10.4); Carbon Dioxide 34 mmol/L (22-30); Chloride 95 mmol/L (96-108); Glomerular Filtration Rate 89; Glucose 144 mg/dL (70-105)
[2022-08-06] MEDS: DOCUSATE SODIUM 100 MG CAPSULE PO SCH ×2 (08:30→20:15)
[2022-08-06] MEDS: METOPROLOL SUCCINATE 25 MG TAB.XL.24H PO SCH (08:30)
[2022-08-06] MEDS: LOSARTAN 25 MG TABLET PO SCH (08:31)
[2022-08-06] MEDS: FUROSEMIDE 40 MG TABLET PO SCH ×2 (08:31→15:59)
[2022-08-06] MEDS: ENOXAPARIN 40 MG/0.4 ML SYRINGE SQ SCH (08:31)
[2022-08-06] MEDS: SPIRONOLACTONE 25 MG TABLET PO SCH (08:31)
[2022-08-06] MEDS: NICOTINE 21 MG PATCH TOPICAL SCH (10:22)
[2022-08-06] MEDS: cefTRIAXone 2 GM in DEXTROSE 5% IN WATER 50 ML IV SCH (10:22)
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
[2022-08-06] MEDS: NICOTINE POLACRILEX 2 MG GUM CHEW/PARK PRN (16:54)
[2022-08-07] MEDS: HYDROcodone/APAP 5/325MG TABLET PO PRN ×2 (04:05→21:00)
[2022-08-07] MEDS: 0.9 % SODIUM CHLORIDE 10 ML SYRINGE IV SCH ×2 (05:44→15:21)
[2022-08-07 06:41] LABS: Basophils # (Auto) 0.03 K/mcL (0.00-0.30); Basophils % (Auto) 0.6 % (0.0-2.0); Eosinophils # (Auto) 0.12 K/mcL (0.00-0.70); Eosinophils % (Auto) 2.4 % (0.0-7.0); Hematocrit 38.3 % (40.1-51.0); Hemoglobin 11.5 g/dL (13.7-17.5); Lymphocytes % (Auto) 22.3 % (15.5-49.0); Mean Cell Volume 89.3 fL (80.0-100.0); Mean Platelet Volume 9.6 fL (8.8-12.5); Monocytes # (Auto) 0.61 K/mcL (0.10-0.90); Monocytes % (Auto) 12.3 % (1.0-12.0); Neutrophils % (Auto) 62.2 % (38.0-78.0); Platelet Count 151 K/mcL (140-440); RBC 4.29 M/mcL (4.63-6.08); Red Cell Distribution Width 15.6 % (11.5-14.5); WBC 4.9 K/mcL (4.5-11.0)
[2022-08-07 07:09] LABS: ALT/SGPT 11 U/L (<40); AST/SGOT 17 U/L (<40); Albumin/Globulin Ratio 0.7 (1.0-2.3); Alkaline Phosphatase 93 U/L (39-117); Bilirubin,Total 0.4 mg/dL (0.1-1.0); Blood Urea Nitrogen 20 mg/dL (6-20); Calcium 9.2 mg/dL (8.6-10.4); Carbon Dioxide 34 mmol/L (22-30); Chloride 94 mmol/L (96-108); Globulin 4.5 gm/dL (2.2-3.7); Glomerular Filtration Rate 101; Glucose 97 mg/dL (70-105)
[2022-08-07] MEDS: LOSARTAN 25 MG TABLET PO SCH (07:57)
[2022-08-07] MEDS: METOPROLOL SUCCINATE 25 MG TAB.XL.24H PO SCH (07:57)
[2022-08-07] MEDS: FUROSEMIDE 40 MG TABLET PO SCH ×2 (07:58→15:56)
[2022-08-07] MEDS: DOCUSATE SODIUM 100 MG CAPSULE PO SCH (07:58)
[2022-08-07] MEDS: ENOXAPARIN 40 MG/0.4 ML SYRINGE SQ SCH (07:58)
[2022-08-07] MEDS: SPIRONOLACTONE 25 MG TABLET PO SCH (07:58)
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
[2022-08-07] MEDS: NICOTINE 21 MG PATCH TOPICAL SCH (15:21)
[2022-08-08] MEDS: DOCUSATE SODIUM 100 MG CAPSULE PO SCH ×3 (05:30→20:40)
[2022-08-08] MEDS: 0.9 % SODIUM CHLORIDE 10 ML SYRINGE IV SCH ×4 (05:30→20:40)
[2022-08-08 07:02] LABS: Basophils # (Auto) 0.05 K/mcL (0.00-0.30); Eosinophils # (Auto) 0.09 K/mcL (0.00-0.70); Eosinophils % (Auto) 1.8 % (0.0-7.0); Hemoglobin 11.1 g/dL (13.7-17.5); Lymphocytes # (Auto) 1.25 K/mcL (1.50-4.80); Lymphocytes % (Auto) 25.3 % (15.5-49.0); Mean Cell Volume 90.5 fL (80.0-100.0); Mean Corpuscular HGB Conc 29.2 g/dL (31.0-36.0); Mean Platelet Volume 10.4 fL (8.8-12.5); Monocytes # (Auto) 0.56 K/mcL (0.10-0.90); Monocytes % (Auto) 11.3 % (1.0-12.0); Platelet Count 156 K/mcL (140-440); Red Cell Distribution Width 15.5 % (11.5-14.5)
[2022-08-08 07:24] LABS: ALT/SGPT 12 U/L (<40); AST/SGOT 17 U/L (<40); Albumin 2.9 gm/dL (3.2-5.2); Albumin/Globulin Ratio 0.6 (1.0-2.3); Alkaline Phosphatase 106 U/L (39-117); Bilirubin,Total 0.4 mg/dL (0.1-1.0); Blood Urea Nitrogen 21 mg/dL (6-20); Calcium 8.9 mg/dL (8.6-10.4); Carbon Dioxide 33 mmol/L (22-30); Chloride 93 mmol/L (96-108); Globulin 4.5 gm/dL (2.2-3.7); Glomerular Filtration Rate 89; Glucose 133 mg/dL (70-105)
[2022-08-08] MEDS: FUROSEMIDE 40 MG TABLET PO SCH ×2 (08:17→16:26)
[2022-08-08] MEDS: SPIRONOLACTONE 25 MG TABLET PO SCH (08:48)
[2022-08-08] MEDS: LOSARTAN 25 MG TABLET PO SCH (08:48)
[2022-08-08] MEDS: ENOXAPARIN 40 MG/0.4 ML SYRINGE SQ SCH (08:48)
[2022-08-08] MEDS: METOPROLOL SUCCINATE 25 MG TAB.XL.24H PO SCH (08:48)
[2022-08-08] MEDS: NICOTINE POLACRILEX 2 MG GUM CHEW/PARK PRN ×2 (08:53→17:43)
[2022-08-08] MEDS: NICOTINE 21 MG PATCH TOPICAL SCH (09:42)
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
[2022-08-09 07:22] LABS: Basophils # (Auto) 0.04 K/mcL (0.00-0.30); Basophils % (Auto) 0.7 % (0.0-2.0); Eosinophils # (Auto) 0.13 K/mcL (0.00-0.70); Eosinophils % (Auto) 2.3 % (0.0-7.0); Hematocrit 38.7 % (40.1-51.0); Hemoglobin 11.4 g/dL (13.7-17.5); Lymphocytes # (Auto) 1.17 K/mcL (1.50-4.80); Lymphocytes % (Auto) 21.1 % (15.5-49.0); Mean Cell Volume 89.6 fL (80.0-100.0); Mean Corpuscular HGB Conc 29.5 g/dL (31.0-36.0); Mean Platelet Volume 10.1 fL (8.8-12.5); Monocytes # (Auto) 0.64 K/mcL (0.10-0.90); Monocytes % (Auto) 11.6 % (1.0-12.0); Neutrophils % (Auto) 63.8 % (38.0-78.0); Platelet Count 155 K/mcL (140-440); RBC 4.32 M/mcL (4.63-6.08); Red Cell Distribution Width 15.6 % (11.5-14.5); WBC 5.5 K/mcL (4.5-11.0)
[2022-08-09] MEDS: 0.9 % SODIUM CHLORIDE 10 ML SYRINGE IV SCH ×2 (07:31→13:56)
[2022-08-09 07:59] LABS: ALT/SGPT 13 U/L (<40); AST/SGOT 18 U/L (<40); Albumin 3.2 gm/dL (3.2-5.2); Albumin/Globulin Ratio 0.7 (1.0-2.3); Alkaline Phosphatase 105 U/L (39-117); Bilirubin,Total 0.5 mg/dL (0.1-1.0); Blood Urea Nitrogen 22 mg/dL (6-20); Calcium 9.2 mg/dL (8.6-10.4); Carbon Dioxide 34 mmol/L (22-30); Chloride 92 mmol/L (96-108); Globulin 4.4 gm/dL (2.2-3.7); Glomerular Filtration Rate 89; Glucose 94 mg/dL (70-105)
[2022-08-09] MEDS: FUROSEMIDE 40 MG TABLET PO SCH ×2 (08:17→16:25)
[2022-08-09] MEDS: SPIRONOLACTONE 25 MG TABLET PO SCH (09:14)
[2022-08-09] MEDS: NICOTINE POLACRILEX 2 MG GUM CHEW/PARK PRN (09:14)
[2022-08-09] MEDS: ENOXAPARIN 40 MG/0.4 ML SYRINGE SQ SCH (09:14)
[2022-08-09] MEDS: LOSARTAN 25 MG TABLET PO SCH (09:14)
[2022-08-09] MEDS: METOPROLOL SUCCINATE 25 MG TAB.XL.24H PO SCH (09:14)
[2022-08-09] MEDS: DOCUSATE SODIUM 100 MG CAPSULE PO SCH ×2 (09:14→20:33)
[2022-08-09] MEDS: NICOTINE 21 MG PATCH TOPICAL SCH (09:14)
--- NOTE | 2022-08-09 09:31 | Internal Med Progress Note ---
SUBJECTIVE Subjective Patient information: Note initiated : 08/09/22 at 9:28 am Service Date, if different from initiated Date: [] Patient: Mendel Ingram a 47 y/o M admitted on 07/31/22 for enlarged testicles and has suicide ideations. Chief Complaint: [] Interval history: Mr. Ingram is a 47 year old male with a history of heart failure, hypertension, hydrocele, homelessness, morbid obesity was brought to the ED after someone overheard him talking about killing himself and called the police. In the ED, the patient denied suicidal ideation. He is frustrated because he is homeless, his vehicle is not functioning, he does not have a source of heat. Per report, the patient has been living in a truck in the local [facility] parking lot. In the ED, the patient was found to be severely volume overloaded and to have cellulitis in his scrotum and inner thighs. Patient was given IV antibiotics, hospital medicine was consulted for admission. After discussing the patient's medical history in more detail, he says that he does have a history of heart failure but has not been taking diuretics for some time because he ran out of medications. The patient says he also has obstructive sleep apnea and sleeps much better with the CPAP. A Romero catheter placement was attempted however unsuccessful because of scrotal edema. In the ED, the patient was afebrile, no leukocytosis however the patient's scrotum and inner thighs are erythematous, warm and tender suggestive of a cellulitis. This is probably been resident for some time. Patient is moderately hypertensive, creatinine was 1.3. The patient is severely volume overloaded on exam. 08/01 Overall improvement in clinical condition. Romero catheter placed yesterday afternoon by urology, the patient is diuresing well with Lasix IV. Renal function stable, electrolytes stable. Added vancomycin due to history of MRSA, continue ceftriaxone, for cellulitis. Echocardiogram report pending. Urine protein creatinine ratio elevated but not consistent with nephrotic syndrome. Ultrasound of scrotum showed a 5 cm complex septated hydrocele adjacent to the right testicle, increased from 3.3 cm on the prior ultrasound. Massive thickening of the scrotal tissue consistent with cellulitis. Diminished arterial blood flow to both testes on color Doppler possibly intratesticular artery compression from soft tissue swelling. Blood cultures pending. Urinalysis was negative for UTI. 08/02-patient seen in room. Bilateral lower extremity brawny induration/cellulitic change and foul-smelling odor. Diuresing well on 3 times a day Lasix. White count downtrending at 7.5, contraction alkalosis noted with bicarb at 34, creatinine 1.2, patient feels lethargic currently on noninvasive ventilation. Start Diamox for 2 doses, lower Lasix dose to 20 mg IV every 8. Continue antibiotic coverage/limb elevation/wound care/therapies and nutrition support Patient was found to be extreme lethargic, confused, stat ABG 7.3/elevated PCO2, start noninvasive ventilation, transfer to ICU, patient critically ill hypercapnic respiratory failure and hypercapnic encephalopathy. 08/03-patient overnight on noninvasive ventilation. Doing a lot better. More lucid alert, repeat ABG today. White count 7.4, sodium 134, bicarb 35 currently on acetazolamide/Lasix. Echocardiogram EF 33%. Severe systolic dysfunction now on beta-aly/ARB. On 3 L oxygen, net -15,000 cc over last 72 hours. Renal function stable. Creatinine down to 1.1, further lower diuretic dose in 24 hours. Continue physical therapy/weight loss reduction counseling/dietitian intervention 08/04: Patient is continue switching between BiPAP and nasal cannula oxygen's throughout the night and currently on 2 L/min of nasal cannula oxygen's. Continue to have good diuresis. Patient is complaining of improving degree of shortness of breath. The degree of the swelling of his scrotum and lower extremities has also improved. We will keep the patient in the PCU due to the fact that he is still on BiPAP part of the time. Switched Lasix from IV to 40 Mg p.o. twice daily. Finished Diamox. Continued metoprolol XL, losartan, and Aldactone as part of the management of his congestive heart failure exacerbations. Continue to wean down or off oxygen therapy as tolerated. Continue Rocephin for scrotal/bilateral inner thigh cellulitis. We will keep the Romero catheter in place as per urologist recommendations. Pending SNF placement when clinically ready. 08/05: Patient is continue to diurese fairly well, with fluid balance of -18.5 L since admissions. Patient is continue switching between BiPAP and nasal cannula o xygen's throughout the night and currently on room air. Patient is complaining of improving degree of shortness of breath. Swelling of his scrotum and lower extremities is also improved. We will keep the patient in the PCU due to the fact that he is still on BiPAP part of the time. We will change to CPAP tonight and see how the patient is tolerated. If the patient is tolerating CPAP instead of BiPAP tonight, [facility] Continue oral Lasix, metoprolol XL, losartan, and Aldactone as part of the management of his congestive heart failure exacerbation. Continue Rocephin for scrotal/bilateral inner thigh cellulitis. We will keep the Romero catheter in place as per urologist recommendations. Pending SNF placement. 08/06: Patient continue to diurese well overnight, and he tolerated CPAP last night while sleeping. Currently on 2L/min nasal cannula oxygen. He denies any shortness of breath at the moment. Swelling of his scrotum and lower extremities is also improved. Will downgrade patient from PCU to [facility] while waiting for SNF placement. Continue supplemental oxygen therapy during the day and CPAP during the night while sleeping. Continue oral Lasix, metoprolol XL, losartan, and Aldactone as part of the management of his congestive heart failure exacerbation. d/c Rocephin. We will keep the Romero catheter in place as per urologist r ecommendations. 08/07: Patient continue to diurese well overnight with fluid balance of -530cc over the past 12 hours. He tolerated CPAP last night while sleeping. Currently on 2L/min nasal cannula oxygen. He denies any shortness of breath at the moment. Swelling of his scrotum and lower extremities has also improved. Continue supplemental oxygen therapy during the day and CPAP during the night while sleeping. Continue oral Lasix, metoprolol XL, losartan, and Aldactone as part of the management of his congestive heart failure exacerbation. We will keep the Romero catheter in place as per urologist recommendations. Pending SNF placement. 08/08: Patient did not tolerate the CPAP mask last night, and respiratory therapist will bring him a new mask to try this afternoon. Otherwise patient's is breathing all right and he is on room air when he is awake. He still complaining of swelling of his scrotum and lower extremities, same degree compared to yesterday. He has a good appetite and good energy level. Continue supplemental oxygen therapy during the day as needed and will try the new CPAP mask as stated above. Continue oral Lasix, metoprolol XL, losartan, and Aldactone as part of the management of his congestive heart failure exacerbation. We will keep the Romero catheter in place as per urologist recommendations. Pending SNF placement. 08/09: Patient did not tolerate the CPAP mask again last night, I will instruct respiratory therapist to work with the patient's and look for means to make the mask to benefit for the patient. Patient stated that there is significant air leaks around the mask. He denies any cough or phobia or the pressure being too high. He could barely get any sleep last night because of that. Otherwise there is no other major overnight events. And patient is currently on room air. He denies any shortness of breath at the moment. Swelling of his scrotum and lower extremities has also improved. I will instruct respiratory therapist to work with the patient's and look for means to make the mask to benefit for the patient. Continue oral Lasix, metoprolol XL, losartan, and Aldactone as part of the management of his congestive heart failure exacerbation. We will keep the Romero catheter in place as per urologist recommendations. Pending SNF placement. Constitutional Vitals: Vital Signs Temp Pulse Resp BP Pulse Ox O2 Del Method O2 Flow Rate 36.3 C 91 H 23 H 151/86 94 2 08/09/22 08:01 08/09/22 08:01 08/09/22 08:01 08/09/22 08:01 08/09/22 08:01 08/09/22 08:01 08/08/22 08:01 Period Temp Pulse Resp BP Sys/Patiño Pulse Ox O2 Del Method O2 Flow Rate Last 24 Hr 35.9 C-36.6 C 78-98 - 109-154/47-86 85-100 BiPAP-Room Air Intake and Output 08/08/22 08/09/22 08/09/22 19:59 03:59 11:59 Intake Total 1380 520 Output Total 9859 669 7329 Balance 280 -588 -743 Weight 220.899 kg Intake & Output: Intake & Output 08/08/22 08/09/22 08/09/22 19:59 03:59 11:59 Intake Total 1380 520 Output Total 1061 189 2132 Balance 336 -940 -470 Weight 220.899 kg Intake: Beer quantity 120 Oral 1380 400 Output: Urine Catheter Amount 5258 665 1643 Other: Meal Lunch Breakfast Percent of Meal Consumed 100% 100% Feeding Ability Independent Independent Urine Appearance Clear Uretheral (Romero) Clear Clear Urine Color Yellow Uretheral (Romero) Dark Yellow Dark Yellow Stool Size Smear Small Stool Color Brown Brown Stool Consistency Normal for Patient Soft Soft Formed General appearance: cooperative, morbidly obese and no acute distress Head Head exam: Present atraumatic and normal inspection Eye Eye exam: Present normal appearance ENT ENT exam: Present mucous membranes moist, normal exam and normal external ear exam Neck Neck exam: Present normal inspection Respiratory Respiratory exam: Present normal respiratory exam Cardiovascular Cardiovascular exam: Present normal rate and rhythm GI/Abdominal GI/Abdominal exam: Present normal bowel sounds Additional comments: Swollen scrotum with mild erythema and warmth and tenderness to touch. Romero catheter in place Extremities Exam Extremities exam: Present full ROM; Absent normal inspection Additional comments: 3+ pitting edema of the lower extremities up to mid abdomen. Erythema and indurations of bilateral lower legs consistent with status dermatitis. Back Exam Back exam: Present normal inspection Neurological Exam Neurological exam: Present alert and oriented X3 Skin Skin exam: Present intact and warm Additional comments: 3+ pitting edema of the lower extremities up to mid abdomen. Erythema and indurations of bilateral lower legs consistent with status dermatitis. OBJ DATA Labs CBC & Chem 7: 08/09/22 06:16 08/09/22 06:16 Labs: Abnormal Lab Results 08/09/22 08/09/22 08/08/22 06:16 06:16 04:59 RBC 4.32 L Hgb 11.4 L Hct 38.7 L MCHC 29.5 L RDW 15.6 H Immature Gran % (Auto) [place] % (Auto) Lymph # (Auto) 1.17 L Chloride 92 L 93 L Carbon Dioxide 34 H 33 H Anion Gap 7.0 L BUN 22 H 21 H Glucose 133 H Albumin 2.9 L Globulin 4.4 H 4.5 H Albumin/Globulin Ratio 0.7 L 0.6 L 08/08/22 08/07/22 08/07/22 02:59 05:27 05:27 RBC 4.20 L 4.29 L Hgb 11.1 L 11.5 L Hct 38.0 L 38.3 L MCHC 29.2 L 30.0 L RDW 15.5 H 15.6 H Immature Gran % (Auto) 0.6 H Clayton % (Auto) 12.3 H Lymph # (Auto) 1.25 L 1.10 L Chloride 94 L Carbon Dioxide 34 H Anion Gap 7.0 L BUN Glucose Albumin 3.0 L Globulin 4.5 H Albumin/Globulin Ratio 0.7 L Meds: Medications Acetaminophen (Acetaminophen 325 Mg Tablet) 650 mg PO Q6HP PRN; Protocol PRN Reason: Per Pain Protocol Last Admin: 08/08/22 06:10 Dose: 650 mg Hydrocodone Bitart/Acetaminophen (Hydrocodone/Apap 5/325mg Tablet) 1 tab PO Q4HP PRN; Protocol PRN Reason: Per Pain Protocol Last Admin: 08/07/22 21:00 Dose: 1 tab Diazepam (Diazepam 2 Mg Tablet) 2 mg PO TIDP PRN PRN Reason: anxiety Last Admin: 08/05/22 22:38 Dose: 2 mg Docusate Sodium (Docusate Sodium 100 Mg Capsule) 100 mg PO BID [facility] Last Admin: 08/09/22 09:14 Dose: 100 mg Enoxaparin Sodium (Enoxaparin 40 Mg/0.4 Ml Syringe) 40 mg SQ DAILY [facility] Last Admin: 08/09/22 09:14 Dose: 40 mg Furosemide (Furosemide 40 Mg Tablet) 40 mg PO BIDD [facility] Last Admin: 08/09/22 08:17 Dose: 40 mg Lactulose (Lactulose 20 Gm/30 Ml Oral.Marquita) 10 gm PO DAILYP PRN PRN Reason: Constipation Losartan Potassium (Losartan 25 Mg Tablet) 25 mg PO DAILY [facility] Last Admin: 08/09/22 09:14 Dose: 25 mg Metoprolol Succinate (Metoprolol Succinate 25 Mg Tab.Xl.24h) 12.5 mg PO DAILY [facility] Last Admin: 08/09/22 09:14 Dose: 12.5 mg Nicotine (Nicotine 21 Mg Patch) 21 mg TOPICAL DAILY@1000 [facility] Last Admin: 08/09/22 09:14 Dose: 21 mg Nicotine Polacrilex (Nicotine Polacrilex 2 Mg Gum) 2 mg CHEW/PARK Q4HP PRN PRN Reason: Withdrawl Symptoms Last Admin: 08/09/22 09:14 Dose: 2 mg Nystatin (Nystatin Powder Bottle 15gm) 1 dose TOPICAL TIDP PRN PRN Reason: Skin Irritation Last Admin: 08/02/22 20:00 Dose: 1 dose Ondansetron HCl (Ondansetron 4 Mg/2 Ml Vial) 4 mg IV Q4HP PRN; Protocol PRN Reason: Nausea And Vomiting Last Admin: 08/01/22 11:00 Dose: 4 mg Senna (Sennosides 1 Tablet) 2 tab PO HSP PRN PRN Reason: Constipation Sodium Chloride (0.9 % Sodium Chloride 10 Ml Syringe) 10 ml IV Q8 [facility] Last Admin: 08/09/22 07:31 Dose: Not Given Spironolactone (Spironolactone 25 Mg Tablet) 25 mg PO DAILY [facility] Last Admin: 08/09/22 09:14 Dose: 25 mg A/P Assessment and plan (1) Cellulitis of scrotum: Status: Acute (2) Urinary retention: Status: Acute (3) Acute exacerbation of CHF (congestive heart failure): Status: Acute Qualifiers: Heart failure type: right-sided Qualified Code(s): I50.813 - Acute on chronic right heart failure (4) Morbid obesity: Status: Acute (5) Obstructive sleep apnea: Status: Acute (6) Anasarca: Status: Acute (7) Anemia, normocytic normochromic: Status: Acute Narrative A/P Narrative: Assessment and Plans: 1. Systolic CHF exacerbation with LVEF 33%: Inpatient med surg Low sodium diet Daily weigh Strict intake and output Finished Diamox Lasix 40mg PO BID Aldactone Metoprolol XL Losartan Physical therapy, pending SNF placement Need cardiology outpatient referral 2. Scrotal swelling, anasarca, and cellulitis: Continue diuresis, see above d/c Rocephin Blood culture no growth to date MRSA screening negative, d/c Vancomycin 3. Morbid obesity: [employer]inator patient on life style modifications including healthy diet and regular exercise in order to lose weight 4. Anemia, normocytic normochromic: Stable, d/c daily cbc 5. Ureteral stricture: s/p Romero catheter placement by urologist Dr. Newton, will leave it in place for now Need urology outpatient follow up 6. Obstructive sleep apnea: Patient did not tolerate the CPAP mask again last night I will instruct respiratory therapist to work with the patient's and look for means to make the mask to benefit for the patient. GI ppx: Not currently indicated DVT ppx: Lovenox Code status: Full Prognosis: Stable Disposition: Inpatient med surg; pending SNF placement Time Spent With Patient Time: Total time spent is greater than 50% in coordination of care (as documented) at patient's floor/unit and/or counseling patient: Total time spent with greater than 50% in coordination of care (as documented) at patient's floor/unit and/or counseling patient:: 25 - 35 minutes QUALITY VTE Deep Vein Thrombosis/Pulmonary Embolism Present on Admission: No
[2022-08-09] MEDS: HYDROcodone/APAP 5/325MG TABLET PO PRN (20:35)
[2022-08-10] MEDS: ENOXAPARIN 40 MG/0.4 ML SYRINGE SQ SCH (08:54)
[2022-08-10] MEDS: LOSARTAN 25 MG TABLET PO SCH (08:56)
[2022-08-10] MEDS: METOPROLOL SUCCINATE 25 MG TAB.XL.24H PO SCH (08:57)
[2022-08-10] MEDS: SPIRONOLACTONE 25 MG TABLET PO SCH (09:00)
[2022-08-10] MEDS: FUROSEMIDE 40 MG TABLET PO SCH ×2 (09:02→15:58)
[2022-08-10] MEDS: DOCUSATE SODIUM 100 MG CAPSULE PO SCH ×2 (09:05→20:07)
[2022-08-10] MEDS: NICOTINE 21 MG PATCH TOPICAL SCH (10:00)
[2022-08-10] MEDS ORDERED: diphenhydrAMINE 25 MG CAPSULE PO PRN (11:08)
--- NOTE | 2022-08-10 11:13 | Internal Med Progress Note ---
SUBJECTIVE Subjective Patient information: Note initiated : 08/10/22 at 11:09 am Service Date, if different from initiated Date: [] Patient: Mendel Ingram a 47 y/o M admitted on 07/31/22 for enlarged testicles and has suicide ideations. Chief Complaint: [] Interval history: Mr. Ingram is a 47 year old male with a history of heart failure, hypertension, hydrocele, homelessness, morbid obesity was brought to the ED after someone overheard him talking about killing himself and called the police. In the ED, the patient denied suicidal ideation. He is frustrated because he is homeless, his vehicle is not functioning, he does not have a source of heat. Per report, the patient has been living in a truck in the local [facility] parking lot. In the ED, the patient was found to be severely volume overloaded and to have cellulitis in his scrotum and inner thighs. Patient was given IV antibiotics, hospital medicine was consulted for admission. After discussing the patient's medical history in more detail, he says that he does have a history of heart failure but has not been taking diuretics for some time because he ran out of medications. The patient says he also has obstructive sleep apnea and sleeps much better with the CPAP. A Romero catheter placement was attempted however unsuccessful because of scrotal edema. In the ED, the patient was afebrile, no leukocytosis however the patient's scrotum and inner thighs are erythematous, warm and tender suggestive of a cellulitis. This is probably been resident for some time. Patient is moderately hypertensive, creatinine was 1.3. The patient is severely volume overloaded on exam. 08/01 Overall improvement in clinical condition. Romero catheter placed yesterday afternoon by urology, the patient is diuresing well with Lasix IV. Renal function stable, electrolytes stable. Added vancomycin due to history of MRSA, continue ceftriaxone, for cellulitis. Echocardiogram report pending. Urine protein creatinine ratio elevated but not consistent with nephrotic syndrome. Ultrasound of scrotum showed a 5 cm complex septated hydrocele adjacent to the right testicle, increased from 3.3 cm on the prior ultrasound. Massive thickening of the scrotal tissue consistent with cellulitis. Diminished arterial blood flow to both testes on color Doppler possibly intratesticular artery compression from soft tissue swelling. Blood cultures pending. Urinalysis was negative for UTI. 08/02-patient seen in room. Bilateral lower extremity brawny induration/cellulitic change and foul-smelling odor. Diuresing well on 3 times a day Lasix. White count downtrending at 7.5, contraction alkalosis noted with bicarb at 34, creatinine 1.2, patient feels lethargic currently on noninvasive ventilation. Start Diamox for 2 doses, lower Lasix dose to 20 mg IV every 8. Continue antibiotic coverage/limb elevation/wound care/therapies and nutrition support Patient was found to be extreme lethargic, confused, stat ABG 7.3/elevated PCO2, start noninvasive ventilation, transfer to ICU, patient critically ill hypercapnic respiratory failure and hypercapnic encephalopathy. 08/03-patient overnight on noninvasive ventilation. Doing a lot better. More lucid alert, repeat ABG today. White count 7.4, sodium 134, bicarb 35 currently on acetazolamide/Lasix. Echocardiogram EF 33%. Severe systolic dysfunction now on beta-aly/ARB. On 3 L oxygen, net -15,000 cc over last 72 hours. Renal function stable. Creatinine down to 1.1, further lower diuretic dose in 24 hours. Continue physical therapy/weight loss reduction counseling/dietitian intervention 08/04: Patient is continue switching between BiPAP and nasal cannula oxygen's throughout the night and currently on 2 L/min of nasal cannula oxygen's. Continue to have good diuresis. Patient is complaining of improving degree of shortness of breath. The degree of the swelling of his scrotum and lower extremities has also improved. We will keep the patient in the PCU due to the fact that he is still on BiPAP part of the time. Switched Lasix from IV to 40 Mg p.o. twice daily. Finished Diamox. Continued metoprolol XL, losartan, and Aldactone as part of the management of his congestive heart failure exacerbations. Continue to wean down or off oxygen therapy as tolerated. Continue Rocephin for scrotal/bilateral inner thigh cellulitis. We will keep the Romero catheter in place as per urologist recommendations. Pending SNF placement when clinically ready. 08/05: Patient is continue to diurese fairly well, with fluid balance of -18.5 L since admissions. Patient is continue switching between BiPAP and nasal cannula oxygen's throughout the night and currently on room air. Patient is complaining of improving degree of shortness of breath. Swelling of his scrotum and lower extremities is also improved. We will keep the patient in the PCU due to the fact that he is still on BiPAP part of the time. We will change to CPAP tonight and see how the patient is tolerated. If the patient is tolerating CPAP instead of BiPAP tonight, we [facility]. Continue oral Lasix, metoprolol XL, losartan, and Aldactone as part of the management of his congestive heart failure exacerbation. Continue Rocephin for scrotal/bilateral inner thigh cellulitis. We will keep the Romero catheter in place as per urologist recommendations. Pending SNF placement. 08/06: Patient continue to diurese well overnight, and he tolerated CPAP last night while sleeping. Currently on 2L/min nasal cannula oxygen. He denies any shortness of breath at the moment. Swelling of his scrotum and lower extremities is also improved. Will downgrade patient from PCU to [facility] while waiting for SNF placement. Continue supplemental oxygen therapy during the day and CPAP during the night while sleeping. Continue oral Lasix, metoprolol XL, losartan, and Aldactone as part of the management of his congestive heart failure exacerbation. d/c Rocephin. We will keep the Romero catheter in place as per urologist recommendations. 08/07: Patient continue to diurese well overnight with fluid balance of -530cc over the past 12 hours. He tolerated CPAP last night while sleeping. Currently on 2L/min nasal cannula oxygen. He denies any shortness of breath at the moment. Swelling of his scrotum and lower extremities has also improved. Continue supplemental oxygen therapy during the day and CPAP during the night while sleeping. Continue oral Lasix, metoprolol XL, losartan, and Aldactone as part of the management of his congestive heart failure exacerbation. We will keep the Romero catheter in place as per urologist recommendations. Pending SNF placement. 08/08: Patient did not tolerate the CPAP mask last night, and respiratory therapist will bring him a new mask to try this afternoon. Otherwise patient's is breathing all right and he is on room air when he is awake. He still complaining of swelling of his scrotum and lower extremities, same degree compared to yesterday. He has a good appetite and good energy level. Continue supplemental oxygen therapy during the day as needed and will try the new CPAP mask as stated above. Continue oral Lasix, metoprolol XL, losartan, and Aldactone as part of the management of his congestive heart failure exacerbation. We will keep the Romero catheter in place as per urologist recommendations. Pending SNF placement. 08/09: Patient did not tolerate the CPAP mask again last night, I will instruct respiratory therapist to work with the patient's and look for means to make the mask to benefit for the patient. Patient stated that there is significant air leaks around the mask. He denies any cough or phobia or the pressure being too high. He could barely get any sleep last night because of that. Otherwise there is no other major overnight events. And patient is currently on room air. He denies any shortness of breath at the moment. Swelling of his scrotum and lower extremities has also improved. I will instruct respiratory therapist to work with the patient's and look for means to make the mask to benefit for the patient. Continue oral Lasix, metoprolol XL, losartan, and Aldactone as part of the management of his congestive heart failure exacerbation. We will keep the Romero catheter in place as per urologist recommendations. Pending SNF placement. 08/10: Patient have the following complaints: "My hair feels different, my left elbow feels sore and cannot bend or straighten up fully, my bilateral lateral abdomen/flank feel tight and sore, OK scrotum and lower extremities feel swollen and tight as well. Moreover, a few itchiness on my flank/lateral abdomen." Ordering occupational therapy to work with his upper extremities., Including range of motion exercises. Benadryl as needed itchiness. Continue oral diuretics, metoprolol XL, losartan, and Aldactone as part of the management of his congestive heart failure. We will keep the Romero catheter in place as per urologist recommendations. Pending SNF placement. Constitutional Vitals: Vital Signs Temp Pulse Resp BP Pulse Ox O2 Del Method O2 Flow Rate 36.8 C 78 20 133/76 92 2 08/10/22 08:00 08/10/22 08:00 08/10/22 08:00 08/10/22 08:00 08/10/22 08:00 08/10/22 08:00 08/10/22 03:51 Period Temp Pulse Resp BP Sys/Patiño Pulse Ox O2 Del Method O2 Flow Rate Last 24 Hr 36.2 C-36.8 C 78-84 16-24 104-146/58-92 92-99 CPAP-Room Air 2-12 Intake and Output 08/09/22 08/10/22 08/10/22 19:59 03:59 11:59 Intake Total 190 1060 1280 Output Total 2875 2500 Balance -2685 -1440 1280 Weight 215.683 kg Intake & Output: Intake & Output 08/09/22 08/10/22 08/10/22 19:59 03:59 11:59 Intake Total 190 1060 1280 Output Total 2875 2500 Balance -2685 -1440 1280 Weight 215.683 kg Intake: Oral 190 1060 1280 Output: Urine Catheter Amount 2875 2500 Other: Meal Lunch Breakfast Percent of Meal Consumed 100% 90% Feeding Ability Independent Independent Urine Appearance Sediment Clear Uretheral (Romero) Clear Urine Color Yellow Yellow Uretheral (Romero) Dark Yellow Stool Size Small Moderate Stool Color Brown Brown Stool Consistency Soft Soft Formed # Bowel Movements 1 1 General appearance: cooperative, morbidly obese and no acute distress Head Head exam: Present atraumatic and normal inspection Eye Eye exam: Present normal appearance ENT ENT exam: Present mucous membranes moist, normal exam and normal external ear exam Neck Neck exam: Present normal inspection Respiratory Respiratory exam: Present normal respiratory exam Cardiovascular Cardiovascular exam: Present normal rate and rhythm GI/Abdominal GI/Abdominal exam: Present normal bowel sounds Additional comments: Swollen scrotum with mild erythema and warmth and tenderness to touch. Romero catheter in place Extremities Exam Additional comments: 3+ pitting edema of the lower extremities up to mid abdomen. Erythema and ind urations of bilateral lower legs consistent with status dermatitis. Back Exam Back exam: Present normal inspection Neurological Exam Neurological exam: Present alert and oriented X3 Skin Skin exam: Present intact and warm Additional comments: 3+ pitting edema of the lower extremities up to mid abdomen. Erythema and indurations of bilateral lower legs consistent with status dermatitis. OBJ DATA Labs CBC & Chem 7: 08/09/22 06:16 08/09/22 06:16 Labs: Abnormal Lab Results 08/09/22 08/09/22 08/08/22 06:16 06:16 04:59 RBC 4.32 L Hgb 11.4 L Hct 38.7 L MCHC 29.5 L RDW 15.6 H Immature Gran % (Auto) Lymph # (Auto) 1.17 L Chloride 92 L 93 L Carbon Dioxide 34 H 33 H Anion Gap 7.0 L BUN 22 H 21 H Glucose 133 H Albumin 2.9 L Globulin 4.4 H 4.5 H Albumin/Globulin Ratio 0.7 L 0.6 L 08/08/22 02:59 RBC 4.20 L Hgb 11.1 L Hct 38.0 L MCHC 29.2 L RDW 15.5 H Immature Gran % (Auto) 0.6 H Lymph # (Auto) 1.25 L Chloride Carbon Dioxide Anion Gap BUN Glucose Albumin Globulin Albumin/Globulin Ratio Meds: Medications Acetaminophen (Acetaminophen 325 Mg Tablet) 650 mg PO Q6HP PRN; Protocol PRN Reason: Per Pain Protocol Last Admin: 08/08/22 06:10 Dose: 650 mg Hydrocodone Bitart/Acetaminophen (Hydrocodone/Apap 5/325mg Tablet) 1 tab PO Q4HP PRN; Protocol PRN Reason: Per Pain Protocol Last Admin: 08/09/22 20:35 Dose: 1 tab Diazepam (Diazepam 2 Mg Tablet) 2 mg PO TIDP PRN PRN Reason: anxiety Last Admin: 08/05/22 22:38 Dose: 2 mg Diphenhydramine HCl (Diphenhydramine 25 Mg Capsule) 50 mg PO Q4-6HP PRN PRN Reason: Itching Docusate Sodium (Docusate Sodium 100 Mg Capsule) 100 mg PO BID [facility] Last Admin: 08/10/22 09:05 Dose: 100 mg Enoxaparin Sodium (Enoxaparin 40 Mg/0.4 Ml Syringe) 40 mg SQ DAILY [facility] Last Admin: 08/10/22 08:54 Dose: 40 mg Furosemide (Furosemide 40 Mg Tablet) 40 mg PO BIDD [facility] Last Admin: 08/10/22 09:02 Dose: 40 mg Lactulose (Lactulose 20 Gm/30 Ml Oral.Marquita) 10 gm PO DAILYP PRN PRN Reason: Constipation Losartan Potassium (Losartan 25 Mg Tablet) 25 mg PO DAILY [facility] Last Admin: 08/10/22 08:56 Dose: 25 mg Metoprolol Succinate (Metoprolol Succinate 25 Mg Tab.Xl.24h) 12.5 mg PO DAILY [facility] Last Admin: 08/10/22 08:57 Dose: 12.5 mg Nicotine (Nicotine 21 Mg Patch) 21 mg TOPICAL DAILY@1000 PINKY Last Admin: 08/09/22 09:14 Dose: 21 mg Nicotine Polacrilex (Nicotine Polacrilex 2 Mg Gum) 2 mg CHEW/PARK Q4HP PRN PRN Reason: Withdrawl Symptoms Last Admin: 08/09/22 09:14 Dose: 2 mg Nystatin (Nystatin Powder Bottle 15gm) 1 dose TOPICAL TIDP PRN PRN Reason: Skin Irritation Last Admin: 08/02/22 20:00 Dose: 1 dose Ondansetron HCl (Ondansetron 4 Mg/2 Ml Vial) 4 mg IV Q4HP PRN; Protocol PRN Reason: Nausea And Vomiting Last Admin: 08/01/22 11:00 Dose: 4 mg Senna (Sennosides 1 Tablet) 2 tab PO HSP PRN PRN Reason: Constipation Spironolactone (Spironolactone 25 Mg Tablet) 25 mg PO DAILY [facility] Last Admin: 08/10/22 09:00 Dose: 25 mg A/P Assessment and plan (1) Cellulitis of scrotum: Status: Acute (2) Urinary retention: Status: Acute (3) Acute exacerbation of CHF (congestive heart failure): Status: Acute Qualifiers: Heart failure type: right-sided Qualified Code(s): I50.813 - Acute on chronic right heart failure (4) Morbid obesity: Status: Acute (5) Obstructive sleep apnea: Status: Acute (6) Anasarca: Status: Acute (7) Anemia, normocytic normochromic: Status: Acute Narrative A/P Narrative: Assessment and Plans: 1. Systolic CHF exacerbation with LVEF 33%: Inpatient med surg Low sodium diet Daily weigh Strict intake and output Finished Diamox Lasix 40mg PO BID Aldactone Metoprolol XL Losartan Physical therapy, pending SNF placement Need cardiology outpatient referral 2. Scrotal swelling, anasarca, and cellulitis: Continue diuresis, see above d/c Rocephin Blood culture no growth to date MRSA screening negative, d/c Vancomycin Benadryl PRN itching 3. Morbid obesity: [employer] patient on life style modifications including healthy diet and regular exercise in order to lose weight 4. Anemia, normocytic normochromic: Stable, d/c daily cbc 5. Ureteral stricture: s/p Romero catheter placement by urologist Dr. Newton, will leave it in place for now Need urology outpatient follow up 6. Obstructive sleep apnea: Patient did not tolerate the CPAP mask again last night I will instruct respiratory therapist to work with the patient's and look for means to make the mask to benefit for the patient. GI ppx: Not currently indicated DVT ppx: Lovenox Code status: Full Prognosis: Stable Disposition: Inpatient med surg; pending SNF placement; OT Time Spent With Patient Time: Total time spent is greater than 50% in coordination of care (as documented) at patient's floor/unit and/or counseling patient: Total time spent with greater than 50% in coordination of care (as documented) at patient's floor/unit and/or counseling patient:: 25 - 35 minutes QUALITY VTE Deep Vein Thrombosis/Pulmonary Embolism Present on Admission: No
[2022-08-10] MEDS: NICOTINE POLACRILEX 2 MG GUM CHEW/PARK PRN (11:32)
--- NOTE | 2022-08-10 13:44 | Internal Med Progress Note ---
SUBJECTIVE Subjective Patient information: Note initiated : 08/10/22 at 1:39 pm Service Date, if different from initiated Date: [] Patient: Mendel Ingram a 47 y/o M admitted on 07/31/22 for enlarged testicles and has suicide ideations. Chief Complaint: [] Interval history: Mr. Ingram is a 47 year old male with a history of heart failure, hypertension, hydrocele, homelessness, morbid obesity was brought to the ED after someone overheard him talking about killing himself and called the police. In the ED, the patient denied suicidal ideation. He is frustrated because he is homeless, his vehicle is not functioning, he does not have a source of heat. Per report, the patient has been living in a truck in the local [facility] parking lot. In the ED, the patient was found to be severely volume overloaded and to have cellulitis in his scrotum and inner thighs. Patient was given IV antibiotics, hospital medicine was consulted for admission. After discussing the patient's medical history in more detail, he says that he does have a history of heart failure but has not been taking diuretics for some time because he ran out of medications. The patient says he also has obstructive sleep apnea and sleeps much better with the CPAP. A Romero catheter placement was attempted however unsuccessful because of scrotal edema. In the ED, the patient was afebrile, no leukocytosis however the patient's scrotum and inner thighs are erythematous, warm and tender suggestive of a cellulitis. This is probably been resident for some time. Patient is moderately hypertensive, creatinine was 1.3. The patient is severely volume overloaded on exam. 08/01 Overall improvement in clinical condition. Romero catheter placed yesterday afternoon by urology, the patient is diuresing well with Lasix IV. Renal function stable, electrolytes stable. Added vancomycin due to history of MRSA, continue ceftriaxone, for cellulitis. Echocardiogram report pending. Urine protein creatinine ratio elevated but not consistent with nephrotic syndrome. Ultrasound of scrotum showed a 5 cm complex septated hydrocele adjacent to the right testicle, increased from 3.3 cm on the prior ultrasound. Massive thickening of the scrotal tissue consistent with cellulitis. Diminished arterial blood flow to both testes on color Doppler possibly intratesticular artery compression from soft tissue swelling. Blood cultures pending. Urinalysis was negative for UTI. 08/02-patient seen in room. Bilateral lower extremity brawny induration/cellulitic change and foul-smelling odor. Diuresing well on 3 times a day Lasix. White count downtrending at 7.5, contraction alkalosis noted with bicarb at 34, creatinine 1.2, patient feels lethargic currently on noninvasive ventilation. Start Diamox for 2 doses, lower Lasix dose to 20 mg IV every 8. Continue antibiotic coverage/limb elevation/wound care/therapies and nutrition support Patient was found to be extreme lethargic, confused, stat ABG 7.3/elevated PCO2, start noninvasive ventilation, transfer to ICU, patient critically ill hypercapnic respiratory failure and hypercapnic encephalopathy. 08/03-patient overnight on noninvasive ventilation. Doing a lot better. More lucid alert, repeat ABG today. White count 7.4, sodium 134, bicarb 35 currently on acetazolamide/Lasix. Echocardiogram EF 33%. Severe systolic dysfunction now on beta-aly/ARB. On 3 L oxygen, net -15,000 cc over last 72 hours. Renal function stable. Creatinine down to 1.1, further lower diuretic dose in 24 hours. Continue physical therapy/weight loss reduction counseling/dietitian intervention 08/04: Patient is continue switching between BiPAP and nasal cannula oxygen's throughout the night and currently on 2 L/min of nasal cannula oxygen's. Continue to have good diuresis. Patient is complaining of improving degree of shortness of breath. The degree of the swelling of his scrotum and lower extremities has also improved. We will keep the patient in the PCU due to the fact that he is still on BiPAP part of the time. Switched Lasix from IV to 40 Mg p.o. twice daily. Finished Diamox. Continued metoprolol XL, losartan, and Aldactone as part of the management of his congestive heart failure exacerbations. Continue to wean down or off oxygen therapy as tolerated. Continue Rocephin for scrotal/bilateral inner thigh cellulitis. We will keep the Romero catheter in place as per urologist recommendations. Pending SNF placement when clinically ready. 08/05: Patient is continue to diurese fairly well, with fluid balance of -18.5 L since admissions. Patient is continue switching between BiPAP and nasal cannula o xygen's throughout the night and currently on room air. Patient is complaining of improving degree of shortness of breath. Swelling of his scrotum and lower extremities is also improved. We will keep the patient in the PCU due to the fact that he is still on BiPAP part of the time. We will change to CPAP tonight and see how the patient is tolerated. If the patient is tolerating CPAP instead of BiPAP tonight, [facility]. Continue oral Lasix, metoprolol XL, losartan, and Aldactone as part of the management of his congestive heart failure exacerbation. Continue Rocephin for scrotal/bilateral inner thigh cellulitis. We will keep the Rmoero catheter in place as per urologist recommendations. Pending SNF placement. 08/06: Patient continue to diurese well overnight, and he tolerated CPAP last night while sleeping. Currently on 2L/min nasal cannula oxygen. He denies any shortness of breath at the moment. Swelling of his scrotum and lower extremities is also improved. Will downgrade patient from PCU to [facility] while waiting for SNF placement. Continue supplemental oxygen therapy during the day and CPAP during the night while sleeping. Continue oral Lasix, metoprolol XL, losartan, and Aldactone as part of the management of his congestive heart failure exacerbation. d/c Rocephin. We will keep the Romero catheter in place as per urologist r ecommendations. 08/07: Patient continue to diurese well overnight with fluid balance of -530cc over the past 12 hours. He tolerated CPAP last night while sleeping. Currently on 2L/min nasal cannula oxygen. He denies any shortness of breath at the moment. Swelling of his scrotum and lower extremities has also improved. Continue supplemental oxygen therapy during the day and CPAP during the night while sleeping. Continue oral Lasix, metoprolol XL, losartan, and Aldactone as part of the management of his congestive heart failure exacerbation. We will keep the Romero catheter in place as per urologist recommendations. Pending SNF placement. 08/08: Patient did not tolerate the CPAP mask last night, and respiratory therapist will bring him a new mask to try this afternoon. Otherwise patient's is breathing all right and he is on room air when he is awake. He still complaining of swelling of his scrotum and lower extremities, same degree compared to yesterday. He has a good appetite and good energy level. Continue supplemental oxygen therapy during the day as needed and will try the new CPAP mask as stated above. Continue oral Lasix, metoprolol XL, losartan, and Aldactone as part of the management of his congestive heart failure exacerbation. We will keep the Romero catheter in place as per urologist recommendations. Pending SNF placement. 08/09: Patient did not tolerate the CPAP mask again last night, I will instruct respiratory therapist to work with the patient's and look for means to make the mask to benefit for the patient. Patient stated that there is significant air leaks around the mask. He denies any cough or phobia or the pressure being too high. He could barely get any sleep last night because of that. Otherwise there is no other major overnight events. And patient is currently on room air. He denies any shortness of breath at the moment. Swelling of his scrotum and lower extremities has also improved. I will instruct respiratory therapist to work with the patient's and look for means to make the mask to benefit for the patient. Continue oral Lasix, metoprolol XL, losartan, and Aldactone as part of the management of his congestive heart failure exacerbation. We will keep the Romero catheter in place as per urologist recommendations. Pending SNF placement. 08/10: Patient have the following complaints: "My hair feels different, my left elbow feels sore and cannot bend or straighten up fully, my bilateral lateral abdomen/flank feel tight and sore, LA scrotum and lower extremities feel swollen and tight as well. Moreover, a few itchiness on my flank/lateral abdomen." Ordering occupational therapy to work with his upper extremities., Including range of motion exercises. Benadryl as needed itchiness. Continue oral diuretics, metoprolol XL, losartan, and Aldactone as part of the management of his congestive heart failure. We will keep the Romero catheter in place as per urologist recommendations. Pending SNF placement. Constitutional Vitals: Vital Signs Temp Pulse Resp BP Pulse Ox O2 Del Method O2 Flow Rate 97.6 F 88 18 146/74 95 2 08/10/22 12:00 08/10/22 12:00 08/10/22 12:00 08/10/22 12:00 08/10/22 12:00 08/10/22 08:00 08/10/22 03:51 Period Temp Pulse Resp BP Sys/Patiño Pulse Ox O2 Del Method O2 Flow Rate Last 24 Hr 97.2 F-98.2 F 78-88 16-24 104-146/58-92 92-98 CPAP-Room Air 2-2 Intake and Output 08/10/22 08/10/22 08/10/22 03:59 11:59 19:59 Intake Total 1060 1280 600 Output Total 2500 1950 Balance -1440 1280 -1350 Weight 215.683 kg Intake & Output: Intake & Output 08/10/22 08/10/22 08/10/22 03:59 11:59 19:59 Intake Total 1060 1280 600 Output Total 2500 1950 Balance -1440 1280 -1350 Weight 215.683 kg Intake: Oral 1060 1280 600 Output: Urine Catheter Amount 2500 1950 Other: Meal Breakfast Lunch Percent of Meal Consumed 90% 100% Feeding Ability Independent Independent Urine Appearance Clear Uretheral (Romero) Clear Urine Color Yellow Uretheral (Romero) Dark Yellow Stool Size Moderate Stool Color Brown Brown Stool Consistency Soft Watery Loose # Bowel Movements 1 1 Exam: General: Alert, Awake, No acute Distress, obese Eyes/N/T: EOMI, Head/Neck: neck supple, CV: RRR, No murmurs, Pulm: Clear b/l, no wheezing/rhonchi/rales Abd: soft, nontender, +BS x4 : Swollen scrotum with mild erythema and warmth and tenderness to touch. Romero catheter in place Ext: no clubbing/cyanosis, b/l LE 3+ edema, edema to mid-abdomen, stasis dermatitis Neuro: Alert, no focal deficits, moves all extremities, Skin: warm/dry OBJ DATA Labs CBC & Chem 7: 08/09/22 06:16 08/09/22 06:16 Labs: Abnormal Lab Results 08/09/22 08/09/22 08/08/22 06:16 06:16 04:59 RBC 4.32 L Hgb 11.4 L Hct 38.7 L MCHC 29.5 L RDW 15.6 H Immature Gran % (Auto) Lymph # (Auto) 1.17 L Chloride 92 L 93 L Carbon Dioxide 34 H 33 H Anion Gap 7.0 L BUN 22 H 21 H Glucose 133 H Albumin 2.9 L Globulin 4.4 H 4.5 H Albumin/Globulin Ratio 0.7 L 0.6 L 08/08/22 02:59 RBC 4.20 L Hgb 11.1 L Hct 38.0 L MCHC 29.2 L RDW 15.5 H Immature Gran % (Auto) 0.6 H Lymph # (Auto) 1.25 L Chloride Carbon Dioxide Anion Gap BUN Glucose Albumin Globulin Albumin/Globulin Ratio Meds: Medications Acetaminophen (Acetaminophen 325 Mg Tablet) 650 mg PO Q6HP PRN; Protocol PRN Reason: Per Pain Protocol Last Admin: 08/08/22 06:10 Dose: 650 mg Hydrocodone Bitart/Acetaminophen (Hydrocodone/Apap 5/325mg Tablet) 1 tab PO Q4HP PRN; Protocol PRN Reason: Per Pain Protocol Last Admin: 08/09/22 20:35 Dose: 1 tab Diazepam (Diazepam 2 Mg Tablet) 2 mg PO TIDP PRN PRN Reason: anxiety Last Admin: 08/05/22 22:38 Dose: 2 mg Diphenhydramine HCl (Diphenhydramine 25 Mg Capsule) 50 mg PO Q4-6HP PRN PRN Reason: Itching Docusate Sodium (Docusate Sodium 100 Mg Capsule) 100 mg PO BID [facility] Last Admin: 08/10/22 09:05 Dose: 100 mg Enoxaparin Sodium (Enoxaparin 40 Mg/0.4 Ml Syringe) 40 mg SQ DAILY [facility] Last Admin: 08/10/22 08:54 Dose: 40 mg Furosemide (Furosemide 40 Mg Tablet) 40 mg PO BIDD [facility] Last Admin: 08/10/22 09:02 Dose: 40 mg Lactulose (Lactulose 20 Gm/30 Ml Oral.Marquita) 10 gm PO DAILYP PRN PRN Reason: Constipation Losartan Potassium (Losartan 25 Mg Tablet) 25 mg PO DAILY [facility] Last Admin: 08/10/22 08:56 Dose: 25 mg Metoprolol Succinate (Metoprolol Succinate 25 Mg Tab.Xl.24h) 12.5 mg PO DAILY [facility] Last Admin: 08/10/22 08:57 Dose: 12.5 mg Nicotine (Nicotine 21 Mg Patch) 21 mg TOPICAL DAILY@1000 [facility] Last Admin: 08/10/22 10:00 Dose: Not Given Nicotine Polacrilex (Nicotine Polacrilex 2 Mg Gum) 2 mg CHEW/PARK Q4HP PRN PRN Reason: Withdrawl Symptoms Last Admin: 08/10/22 11:32 Dose: 2 mg Nystatin (Nystatin Powder Bottle 15gm) 1 dose TOPICAL TIDP PRN PRN Reason: Skin Irritation Last Admin: 08/02/22 20:00 Dose: 1 dose Ondansetron HCl (Ondansetron 4 Mg/2 Ml Vial) 4 mg IV Q4HP PRN; Protocol PRN Reason: Nausea And Vomiting Last Admin: 08/01/22 11:00 Dose: 4 mg Senna (Sennosides 1 Tablet) 2 tab PO HSP PRN PRN Reason: Constipation Spironolactone (Spironolactone 25 Mg Tablet) 25 mg PO DAILY [facility] Last Admin: 08/10/22 09:00 Dose: 25 mg A/P Narrative A/P Narrative: Assessment and Plans: *acute on likely chronic Systolic(35%) CHF exacerbation: -Daily weight, Strict intake and output -Lasix 40mg PO BID, Finished Diamox -Aldactone -Metoprolol XL, Losartan -Need cardiology outpatient referral *Scrotal swelling, anasarca, and cellulitis: -Continue diuresis, see above -d/c Rocephin, Blood culture no growth to date, MRSA screening negative, d/c Vancomycin * Morbid obesity: BMI 70 -[employer] [place] patient on life style modifications including healthy diet/regular exercise in order to lose weight *Anemia, normocytic normochromic: Stable, d/c daily cbc *Urethral stricture: s/p Romero catheter placement by urologist Dr. Newton, will leave it in place for now -Need urology outpatient follow up *Obstructive sleep apnea: -RT to assist *ppx: Lovenox Time Spent With Patient Time: Total time spent is greater than 50% in coordination of care (as documented) at patient's floor/unit and/or counseling patient: QUALITY VTE Deep Vein Thrombosis/Pulmonary Embolism Present on Admission: No
--- NOTE | 2022-08-10 13:47 | Discharge Summary ---
Discharge Provider Provider IMPORTANT FOLLOW-UP INFORMATION FOR PCP: Patient information: Note initiated : 08/10/22 at 1:45 pm Service Date, if different from initiated Date: [] Patient: Mendel Ingram 47 y/o M admitted on 07/31/22 for enlarged testicles and has suicide ideations. Chief Complaint: [] Date of admission: 07/31/22 08:40 Discharge date: 08/12/22 Primary care physician: PCP No Consults: 07/31/22 Consult to Physician [CONS] Stat Comment: Consulting Provider: Torres Pino Reason For Exam: Physician to Consult 07/31/22 08:32 Consult to Physician [CONS] Routine Comment: Consulting Provider: Darwin Newton Reason For Exam: Physician to Consult 08/05/22 13:37 Consult to Physician [CONS] Routine Comment: Consulting Provider: [facility] Reason For Exam: Physician to Consult 08/05/22 13:43 Consult to Physician [CONS] Routine Comment: RHN/NIACH referral Consulting Provider: Xavier Hendrickson Reason For Exam: Physician to Consult COURSE Hospital Course Hospital course: Interval history: Mr. Ingram is a 47 year old male with a history of heart failure, hypertension, hydrocele, homelessness, morbid obesity was brought to the ED after someone overheard him talking about killing himself and called the police. In the ED, the patient denied suicidal ideation. He is frustrated because he is homeless, his vehicle is not functioning, he does not have a source of heat. Per report, the patient has been living in a truck in the local [facility] parking lot. In the ED, the patient was found to be severely volume overloaded and to have cellulitis in his scrotum and inner thighs. Patient was given IV antibiotics, hospital medicine was consulted for admission. After discussing the patient's medical history in more detail, he says that he does have a history of heart failure but has not been taking diuretics for some time because he ran out of medications. The patient says he also has obstructive sleep apnea and sleeps much better with the CPAP. A Romero catheter placement was attempted however unsuccessful because of scrotal edema. In the ED, the patient was afebrile, no leukocytosis however the patient's scrotum and inner thighs are erythematous, warm and tender suggestive of a cellulitis. This is probably been resident for some time. Patient is moderately hypertensive, creatinine was 1.3. The patient is severely volume overloaded on exam. 08/01 Overall improvement in clinical condition. Romero catheter placed yesterday afternoon by urology, the patient is diuresing well with Lasix IV. Renal function stable, electrolytes stable. Added vancomycin due to history of MRSA, continue ceftriaxone, for cellulitis. Echocardiogram report pending. Urine protein creatinine ratio elevated but not consistent with nephrotic syndrome. Ultrasound of scrotum showed a 5 cm complex septated hydrocele adjacent to the right testicle, increased from 3.3 cm on the prior ultrasound. Massive thickening of the scrotal tissue consistent with cellulitis. Diminished arterial blood flow to both testes on color Doppler possibly intratesticular artery compression from soft tissue swelling. Blood cultures pending. Urinaly sis was negative for UTI. 08/02-patient seen in room. Bilateral lower extremity brawny induration/cellulitic change and foul-smelling odor. Diuresing well on 3 times a day Lasix. White count downtrending at 7.5, contraction alkalosis noted with bicarb at 34, creatinine 1.2, patient feels lethargic currently on noninvasive ventilation. Start Diamox for 2 doses, lower Lasix dose to 20 mg IV every 8. Continue antibiotic coverage/limb elevation/wound care/therapies and nutrition support Patient was found to be extreme lethargic, confused, stat ABG 7.3/elevated PCO2, start noninvasive ventilation, transfer to ICU, patient critically ill hypercapnic respiratory failure and hypercapnic encephalopathy. 08/03-patient overnight on noninvasive ventilation. Doing a lot better. More lucid alert, repeat ABG today. White count 7.4, sodium 134, bicarb 35 currently on acetazolamide/Lasix. Echocardiogram EF 33%. Severe systolic dysfunction now on beta-aly/ARB. On 3 L oxygen, net -15,000 cc over last 72 hours. Renal function stable. Creatinine down to 1.1, further lower diuretic dose in 24 hours. Continue physical therapy/weight loss reduction counseling/dietitian intervention 08/04: Patient is continue switching between BiPAP and nasal cannula oxygen's throughout the night and currently on 2 L/min of nasal cannula oxygen's. Continue to have good diuresis. Patient is complaining of improving degree of shortness of breath. The degree of the swelling of his scrotum and lower extremities has also improved. We will keep the patient in the PCU due to the fact that he is still on BiPAP part of the time. Switched Lasix from IV to 40 Mg p.o. twice daily. Finished Diamox. Continued metoprolol XL, losartan, and Aldactone as part of the management of his congestive heart failure exacerbations. Continue to wean down or off oxygen therapy as tolerated. Continue Rocephin for scrotal/bilateral inner thigh cellulitis. We will keep the Romero catheter in place as per uro logist recommendations. Pending SNF placement when clinically ready. 08/05: Patient is continue to diurese fairly well, with fluid balance of -18.5 L since admissions. Patient is continue switching between BiPAP and nasal cannula oxygen's throughout the night and currently on room air. Patient is complaining of improving degree of shortness of breath. Swelling of his scrotum and lower extremities is also improved. We will keep the patient in the PCU due to the fact that he is still on BiPAP part of the time. We will change to CPAP tonight and see how the patient is tolerated. If the patient is tolerating CPAP instead of BiPAP tonight, we will downgrade the patient to [facility] tomorrow. Continue oral Lasix, metoprolol XL, losartan, and Aldactone as part of the management of his congestive heart failure exacerbation. Continue Rocephin for scrotal/bilateral inner thigh cellulitis. We will keep the Romero catheter in place as per urologist recommendations. Pending SNF placement. 08/06: Patient continue to diurese well overnight, and he tolerated CPAP last night while sleeping. Currently on 2L/min nasal cannula oxygen. He denies any shortness of breath at the moment. Swelling of his scrotum and lower extremities is also improved. Will downgrade patient from PCU to [facility] while waiting for SNF placement. Continue supplemental oxygen therapy during the day and CPAP during the night while sleeping. Continue oral Lasix, metoprolol XL, losartan, and Aldactone as part of the management of his congestive heart failure exacerbation. d/c Rocephin. We will keep the Romero catheter in place as per urologist recommendations. 08/07: Patient continue to diurese well overnight with fluid balance of -530cc over the past 12 hours. He tolerated CPAP last night while sleeping. Currently on 2L/min nasal cannula oxygen. He denies any shortness of breath at the moment. Swelling of his scrotum and lower extremities has also improved. Continue supplemental oxygen therapy during the day and CPAP during the night while sleeping. Continue oral Lasix, metoprolol XL, losartan, and Aldactone as part of the management of his congestive heart failure exacerbation. We will keep the Romero catheter in place as per urologist recommendations. Pending SNF placement. 08/08: Patient did not tolerate the CPAP mask last night, and respiratory therapist will bring him a new mask to try this afternoon. Otherwise patient's is breathing all right and he is on room air when he is awake. He still complaining of swelling of his scrotum and lower extremities, same degree compared to yesterday. He has a good appetite and good energy level. Continue supplemental oxygen therapy during the day as needed and will try the new CPAP mask as stated above. Continue oral Lasix, metoprolol XL, losartan, and Aldactone as part of the management of his congestive heart failure exacerbation. We will keep the Romero catheter in place as per urologist recommendations. Pending SNF placement. 08/09: Patient did not tolerate the CPAP mask again last night, I will instruct respiratory therapist to work with the patient's and look for means to make the mask to benefit for the patient. Patient stated that there is significant air leaks around the mask. He denies any cough or phobia or the pressure being too high. He could barely get any sleep last night because of that. Otherwise there is no other major overnight events. And patient is currently on room air. He denies any shortness of breath at the moment. Swelling of his scrotum and lower extremities has also improved. I will instruct respiratory therapist to work with the patient's and look for means to make the mask to benefit for the patient. Continue oral Lasix, metoprolol XL, losartan, and Aldactone as part of the management of his congestive heart failure exacerbation. We will keep the Romero catheter in place as per urologist recommendations. Pending SNF placement. 08/10: Patient have the following complaints: "My hair feels different, my left elbow feels sore and cannot bend or straighten up fully, my bilateral lateral abdomen/flank feel tight and sore, [place] scrotum and lower extremities feel swollen and tight as well. Moreover, a few itchiness on my flank/lateral abdomen." Ordering occupational therapy to work with his upper extremities., Including range of motion exercises. Benadryl as needed itchiness. Continue oral diuretics, metoprolol XL, losartan, and Aldactone as part of the management of his congestive heart failure. We will keep the Romero catheter in place as per urologist recommendations. Pending SNF placement. 08/11 Patient feeling less edematous . Feeling little better. Urine output. Continue p.o. diuretics. Awaiting placement. 08/12 Patient continues to diurese well. No overnight event or new complaints. Patient stable for discharge. Assessment and Plans: *acute on likely chronic Systolic(35%) CHF exacerbation: -Lasix 40mg PO BID, Aldactone -Metoprolol XL, Losartan -Need cardiology outpatient referral *Scrotal swelling, anasarca, and cellulitis: * Morbid obesity: BMI 70 -[employer] patient on life style modifications including healthy diet/regular exercise in order to lose weight *Anemia, normocytic normochromic: *Urethral stricture: s/p Romero catheter placement by urologist Dr. Newton, will leave it in place for now -Need urology outpatient follow up *Obstructive sleep apnea: Discharge diagnosis: Systolic CHF anasarca scrotal swelling cellulitis morbid obesity Secondary discharge diagnosis: Urethral stricture CASSANDRA Time Spent with Patient Time attestation: Total time spent providing and/or coordinating discharge services: Time spent: Greater than 30 minutes EXAM Constitutional Vitals: Temp Pulse Resp BP Pulse Ox O2 Del Method O2 Flow Rate 97.6 F 88 18 146/74 95 2 08/10/22 12:00 08/10/22 12:00 08/10/22 12:00 08/10/22 12:00 08/10/22 12:00 08/10/22 08:00 08/10/22 03:51 Discharge Plan Patient/Caregiver Discharge Instructions Activity: increase activity as tolerated Diet: Regular Diet Instructions: Metoprolol (By mouth), Spironolactone (By mouth), Furosemide (By mouth), Losartan (By mouth), Cellulitis (DC), Romero Catheter Placement and Care (DC), Cystoscopy (DC) Activity Restrictions/Additional Instructions: Referral to see cardiology in 3 to 10 days for CHF. Follow-up with PCP in 3 to 7 days. Maintain Romero until seen by urologist. Prescriptions: New furosemide 40 mg Tablet 40 mg PO BIDD Qty: 60 0RF spironolactone 25 mg Tablet 25 mg PO DAILY Qty: 30 0RF losartan 25 mg Tablet 25 mg PO DAILY Qty: 30 0RF metoprolol succinate 25 mg Tablet Extended Release 24 Hr 12.5 mg PO DAILY Qty: 30 0RF Discontinued furosemide [Lasix] 20 mg tablet 20 mg PO BID Qty: 20 0RF Follow Up Plan Follow up with: Darwin Newton MD [Physician] - Patient Disposition: Home, Self-Care Prognosis: Undetermined Overall status at discharge: patient is progressing back to baseline Discharge Orders: Discharge Order (Routine); Ordered 08/12/22 Ordered By: Dav Bill [facility] VTE Deep Vein Thrombosis/Pulmonary Embolism Present on Admission: No
[2022-08-10] MEDS: HYDROcodone/APAP 5/325MG TABLET PO PRN (20:07)
[2022-08-11] MEDS: HYDROcodone/APAP 5/325MG TABLET PO PRN ×3 (03:03→18:52)
[2022-08-11] MEDS: LOSARTAN 25 MG TABLET PO SCH (07:56)
[2022-08-11] MEDS: FUROSEMIDE 40 MG TABLET PO SCH ×2 (07:57→16:02)
[2022-08-11] MEDS: SPIRONOLACTONE 25 MG TABLET PO SCH (07:57)
[2022-08-11] MEDS: DOCUSATE SODIUM 100 MG CAPSULE PO SCH ×2 (07:57→21:42)
[2022-08-11] MEDS: METOPROLOL SUCCINATE 25 MG TAB.XL.24H PO SCH (07:57)
[2022-08-11] MEDS: ENOXAPARIN 40 MG/0.4 ML SYRINGE SQ SCH (07:58)
[2022-08-11 08:32] LABS: ALT/SGPT 15 U/L (<40); AST/SGOT 19 U/L (<40); Albumin 3.3 gm/dL (3.2-5.2); Albumin/Globulin Ratio 0.8 (1.0-2.3); Alkaline Phosphatase 109 U/L (39-117); Bilirubin,Direct 0.2 mg/dL (<0.3); Bilirubin,Total 0.5 mg/dL (0.1-1.0); Blood Urea Nitrogen 22 mg/dL (6-20); Calcium 9.2 mg/dL (8.6-10.4); Carbon Dioxide 33 mmol/L (22-30); Chloride 93 mmol/L (96-108); Globulin 4.3 gm/dL (2.2-3.7); Glomerular Filtration Rate 79; Glucose 84 mg/dL (70-105); Lactate Dehydrogenase 182 U/L (135-225); Phosphorous 3.6 mg/dL (2.5-4.5); Triglycerides 52 mg/dL (<150); Uric Acid 5.8 mg/dL (2.5-8.0)
--- NOTE | 2022-08-11 09:19 | Internal Med Progress Note ---
SUBJECTIVE Subjective Patient information: Note initiated : 08/11/22 at 9:18 am Service Date, if different from initiated Date: [] Patient: Mendel Ingram a 47 y/o M admitted on 07/31/22 for enlarged testicles and has suicide ideations. Chief Complaint: [] Interval history: Mr. Ingram is a 47 year old male with a history of heart failure, hypertension, hydrocele, homelessness, morbid obesity was brought to the ED after someone overheard him talking about killing himself and called the police. In the ED, the patient denied suicidal ideation. He is frustrated because he is homeless, his vehicle is not functioning, he does not have a source of heat. Per report, the patient has been living in a truck in the local [facility] parking lot. In the ED, the patient was found to be severely volume overloaded and to have cellulitis in his scrotum and inner thighs. Patient was given IV antibiotics, hospital medicine was consulted for admission. After discussing the patient's medical history in more detail, he says that he does have a history of heart failure but has not been taking diuretics for some time because he ran out of medications. The patient says he also has obstructive sleep apnea and sleeps much better with the CPAP. A Romero catheter placement was attempted however unsuccessful because of scrotal edema. In the ED, the patient was afebrile, no leukocytosis however the patient's scrotum and inner thighs are erythematous, warm and tender suggestive of a cellulitis. This is probably been resident for some time. Patient is moderately hypertensive, creatinine was 1.3. The patient is severely volume overloaded on exam. 08/01 Overall improvement in clinical condition. Romero catheter placed yesterday afternoon by urology, the patient is diuresing well with Lasix IV. Renal function stable, electrolytes stable. Added vancomycin due to history of MRSA, continue ceftriaxone, for cellulitis. Echocardiogram report pending. Urine protein creatinine ratio elevated but not consistent with nephrotic syndrome. Ultrasound of scrotum showed a 5 cm complex septated hydrocele adjacent to the right testicle, increased from 3.3 cm on the prior ultrasound. Massive thickening of the scrotal tissue consistent with cellulitis. Diminished arterial blood flow to both testes on color Doppler possibly intratesticular artery compression from soft tissue swelling. Blood cultures pending. Urinalysis was negative for UTI. 08/02-patient seen in room. Bilateral lower extremity brawny induration/cellulitic change and foul-smelling odor. Diuresing well on 3 times a day Lasix. White count downtrending at 7.5, contraction alkalosis noted with bicarb at 34, creatinine 1.2, patient feels lethargic currently on noninvasive ventilation. Start Diamox for 2 doses, lower Lasix dose to 20 mg IV every 8. Continue antibiotic coverage/limb elevation/wound care/therapies and nutrition support Patient was found to be extreme lethargic, confused, stat ABG 7.3/elevated PCO2, start noninvasive ventilation, transfer to ICU, patient critically ill hypercapnic respiratory failure and hypercapnic encephalopathy. 08/03-patient overnight on noninvasive ventilation. Doing a lot better. More lucid alert, repeat ABG today. White count 7.4, sodium 134, bicarb 35 currently on acetazolamide/Lasix. Echocardiogram EF 33%. Severe systolic dysfunction now on beta-aly/ARB. On 3 L oxygen, net -15,000 cc over last 72 hours. Renal function stable. Creatinine down to 1.1, further lower diuretic dose in 24 hours. Continue physical therapy/weight loss reduction counseling/dietitian intervention 08/04: Patient is continue switching between BiPAP and nasal cannula oxygen's throughout the night and currently on 2 L/min of nasal cannula oxygen's. Continue to have good diuresis. Patient is complaining of improving degree of shortness of breath. The degree of the swelling of his scrotum and lower extremities has also improved. We will keep the patient in the PCU due to the fact that he is still on BiPAP part of the time. Switched Lasix from IV to 40 Mg p.o. twice daily. Finished Diamox. Continued metoprolol XL, losartan, and Aldactone as part of the management of his congestive heart failure exacerbations. Continue to wean down or off oxygen therapy as tolerated. Continue Rocephin for scrotal/bilateral inner thigh cellulitis. We will keep the Romero catheter in place as per urologist recommendations. Pending SNF placement when clinically ready. 08/05: Patient is continue to diurese fairly well, with fluid balance of -18.5 L since admissions. Patient is continue switching between BiPAP and nasal cannula o xygen's throughout the night and currently on room air. Patient is complaining of improving degree of shortness of breath. Swelling of his scrotum and lower extremities is also improved. We will keep the patient in the PCU due to the fact that he is still on BiPAP part of the time. We will change to CPAP tonight and see how the patient is tolerated. If the patient is tolerating CPAP instead of BiPAP tonight, we [facility]. Continue oral Lasix, metoprolol XL, losartan, and Aldactone as part of the management of his congestive heart failure exacerbation. Continue Rocephin for scrotal/bilateral inner thigh cellulitis. We will keep the Romero catheter in place as per urologist recommendations. Pending SNF placement. 08/06: Patient continue to diurese well overnight, and he tolerated CPAP last night while sleeping. Currently on 2L/min nasal cannula oxygen. He denies any shortness of breath at the moment. Swelling of his scrotum and lower extremities is also improved. Will downgrade patient from PCU to [facility] while waiting for SNF placement. Continue supplemental oxygen therapy during the day and CPAP during the night while sleeping. Continue oral Lasix, metoprolol XL, losartan, and Aldactone as part of the management of his congestive heart failure exacerbation. d/c Rocephin. We will keep the Romero catheter in place as per urologist r ecommendations. 08/07: Patient continue to diurese well overnight with fluid balance of -530cc over the past 12 hours. He tolerated CPAP last night while sleeping. Currently on 2L/min nasal cannula oxygen. He denies any shortness of breath at the moment. Swelling of his scrotum and lower extremities has also improved. Continue supplemental oxygen therapy during the day and CPAP during the night while sleeping. Continue oral Lasix, metoprolol XL, losartan, and Aldactone as part of the management of his congestive heart failure exacerbation. We will keep the Romero catheter in place as per urologist recommendations. Pending SNF placement. 08/08: Patient did not tolerate the CPAP mask last night, and respiratory therapist will bring him a new mask to try this afternoon. Otherwise patient's is breathing all right and he is on room air when he is awake. He still complaining of swelling of his scrotum and lower extremities, same degree compared to yesterday. He has a good appetite and good energy level. Continue supplemental oxygen therapy during the day as needed and will try the new CPAP mask as stated above. Continue oral Lasix, metoprolol XL, losartan, and Aldactone as part of the management of his congestive heart failure exacerbation. We will keep the Romero catheter in place as per urologist recommendations. Pending SNF placement. 08/09: Patient did not tolerate the CPAP mask again last night, I will instruct respiratory therapist to work with the patient's and look for means to make the mask to benefit for the patient. Patient stated that there is significant air leaks around the mask. He denies any cough or phobia or the pressure being too high. He could barely get any sleep last night because of that. Otherwise there is no other major overnight events. And patient is currently on room air. He denies any shortness of breath at the moment. Swelling of his scrotum and lower extremities has also improved. I will instruct respiratory therapist to work with the patient's and look for means to make the mask to benefit for the patient. Continue oral Lasix, metoprolol XL, losartan, and Aldactone as part of the management of his congestive heart failure exacerbation. We will keep the Romero catheter in place as per urologist recommendations. Pending SNF placement. 08/10: Patient have the following complaints: "My hair feels different, my left elbow feels sore and cannot bend or straighten up fully, my bilateral lateral abdomen/flank feel tight and sore, [place] scrotum and lower extremities feel swollen and tight as well. Moreover, a few itchiness on my flank/lateral abdomen." Ordering occupational therapy to work with his upper extremities., Including range of motion exercises. Benadryl as needed itchiness. Continue oral diuretics, metoprolol XL, losartan, and Aldactone as part of the management of his congestive heart failure. We will keep the Romero catheter in place as per urologist recommendations. Pending SNF placement. 08/11 Patient feeling less edematous . Feeling little better. Urine output. Continue p.o. diuretics. Awaiting placement. Review of Systems: denies headache/fever/chills/nausea/vomiting/chest or abdominal pain/cough/dyspnea/diarrhea. Otherwise see above. Constitutional Vitals: Vital Signs Temp Pulse Resp BP Pulse Ox O2 Del Method O2 Flow Rate 97.9 F 80 16 132/66 94 0 08/11/22 07:59 08/11/22 07:59 08/11/22 07:59 08/11/22 07:59 08/11/22 07:59 08/11/22 07:59 08/10/22 13:05 Period Temp Pulse Resp BP Sys/Patiño Pulse Ox O2 Del Method O2 Flow Rate Last 24 Hr 96.8 F-98.3 F 79-91 16-24 119-146/66-82 93-97 BiPAP-Room Air, CPAP 0-0 Intake and Output 08/10/22 08/11/22 08/11/22 19:59 03:59 11:59 Intake Total 1320 840 Output Total 3475 1825 Balance -2155 -985 Weight 216.182 kg Intake & Output: Intake & Output 08/10/22 08/11/22 08/11/22 19:59 03:59 11:59 Intake Total 1320 840 Output Total 3475 1825 Balance -2155 -985 Weight 216.182 kg Intake: Oral 1320 840 Output: Urine Catheter Amount 3475 1825 Other: Meal Tuna/crackers Egg salad & crackers Percent of Meal Consumed 100% 100% Feeding Ability Independent Independent Urine Appearance Cloudy Clear Urine Color Yellow Yellow Urine Odor Normal Stool Color Brown Stool Consistency Watery Loose # Bowel Movements 1 Exam: General: Alert, Awake, No acute Distress, obese Eyes/N/T: EOMI, Head/Neck: neck supple, CV: RRR, No murmurs, Pulm: Clear b/l, no wheezing/rhonchi/rales Abd: soft, nontender, +BS x4 : Swollen scrotum with mild erythema and warmth and tenderness to touch. Romero catheter in place Ext: no clubbing/cyanosis, b/l LE 3+ edema, edema to mid-abdomen, stasis dermatitis Neuro: Alert, no focal deficits, moves all extremities, Skin: warm/dry OBJ DATA Labs CBC & Chem 7: 08/09/22 06:16 08/11/22 05:21 Labs: Abnormal Lab Results 08/11/22 08/09/22 08/09/22 05:21 06:16 06:16 RBC 4.32 L Hgb 11.4 L Hct 38.7 L MCHC 29.5 L RDW 15.6 H Lymph # (Auto) 1.17 L Chloride 93 L 92 L Carbon Dioxide 33 H 34 H BUN 22 H 22 H Globulin 4.3 H 4.4 H Albumin/Globulin Ratio 0.8 L 0.7 L Meds: Medications Acetaminophen (Acetaminophen 325 Mg Tablet) 650 mg PO Q6HP PRN; Protocol PRN Reason: Per Pain Protocol Last Admin: 08/08/22 06:10 Dose: 650 mg Hydrocodone Bitart/Acetaminophen (Hydrocodone/Apap 5/325mg Tablet) 1 tab PO Q4HP PRN; Protocol PRN Reason: Per Pain Protocol Last Admin: 08/11/22 07:56 Dose: 1 tab Diazepam (Diazepam 2 Mg Tablet) 2 mg PO TIDP PRN PRN Reason: anxiety Last Admin: 08/05/22 22:38 Dose: 2 mg Diphenhydramine HCl (Diphenhydramine 25 Mg Capsule) 50 mg PO Q4-6HP PRN PRN Reason: Itching Docusate Sodium (Docusate Sodium 100 Mg Capsule) 100 mg PO BID [facility] Last Admin: 08/11/22 07:57 Dose: 100 mg Enoxaparin Sodium (Enoxaparin 40 Mg/0.4 Ml Syringe) 40 mg SQ DAILY [facility] Last Admin: 08/11/22 07:58 Dose: 40 mg Furosemide (Furosemide 40 Mg Tablet) 40 mg PO BIDD [facility] Last Admin: 08/11/22 07:57 Dose: 40 mg Lactulose (Lactulose 20 Gm/30 Ml Oral.Marquita) 10 gm PO DAILYP PRN PRN Reason: Constipation Losartan Potassium (Losartan 25 Mg Tablet) 25 mg PO DAILY [facility] Last Admin: 08/11/22 07:56 Dose: 25 mg Metoprolol Succinate (Metoprolol Succinate 25 Mg Tab.Xl.24h) 12.5 mg PO DAILY [facility] Last Admin: 08/11/22 07:57 Dose: 12.5 mg Nicotine (Nicotine 21 Mg Patch) 21 mg TOPICAL DAILY@1000 [facility] Last Admin: 08/10/22 10:00 Dose: Not Given Nicotine Polacrilex (Nicotine Polacrilex 2 Mg Gum) 2 mg CHEW/PARK Q4HP PRN PRN Reason: Withdrawl Symptoms Last Admin: 08/10/22 11:32 Dose: 2 mg Nystatin (Nystatin Powder Bottle 15gm) 1 dose TOPICAL TIDP PRN PRN Reason: Skin Irritation Last Admin: 08/02/22 20:00 Dose: 1 dose Ondansetron HCl (Ondansetron 4 Mg/2 Ml Vial) 4 mg IV Q4HP PRN; Protocol PRN Reason: Nausea And Vomiting Last Admin: 08/01/22 11:00 Dose: 4 mg Senna (Sennosides 1 Tablet) 2 tab PO HSP PRN PRN Reason: Constipation Spironolactone (Spironolactone 25 Mg Tablet) 25 mg PO DAILY PINKY Last Admin: 08/11/22 07:57 Dose: 25 mg A/P Narrative A/P Narrative: Assessment and Plans: *acute on likely chronic Systolic(35%) CHF exacerbation: -Daily weight, Strict intake and output -Lasix 40mg PO BID, Finished Diamox -Aldactone -Metoprolol XL, Losartan -Need cardiology outpatient referral *Scrotal swelling, anasarca, and cellulitis: -Continue diuresis, see above -d/c Rocephin, Blood culture no growth to date, MRSA screening negative, d/c Vancomycin * Morbid obesity: BMI 70 -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 Newton, will leave it in place for now -Need urology outpatient follow up *Obstructive sleep apnea: -RT to assist *ppx: Lovenox Time Spent With Patient Time: Total time spent is greater than 50% in coordination of care (as documented) at patient's floor/unit and/or counseling patient: Total time spent with greater than 50% in coordination of care (as documented) at patient's floor/unit and/or counseling patient:: 35 - 50 minutes QUALITY VTE Deep Vein Thrombosis/Pulmonary Embolism Present on Admission: No
[2022-08-11] MEDS: DIAZEPAM 2 MG TABLET PO PRN (12:04)
[2022-08-11] MEDS: NICOTINE 21 MG PATCH TOPICAL SCH (13:03)
[2022-08-12] MEDS: HYDROcodone/APAP 5/325MG TABLET PO PRN (03:25)
[2022-08-12] MEDS: FUROSEMIDE 40 MG TABLET PO SCH (08:24)
[2022-08-12] MEDS: DOCUSATE SODIUM 100 MG CAPSULE PO SCH (08:24)
[2022-08-12] MEDS: SPIRONOLACTONE 25 MG TABLET PO SCH (08:24)
[2022-08-12] MEDS: METOPROLOL SUCCINATE 25 MG TAB.XL.24H PO SCH (08:25)
[2022-08-12] MEDS: ENOXAPARIN 40 MG/0.4 ML SYRINGE SQ SCH (08:25)
[2022-08-12] MEDS: LOSARTAN 25 MG TABLET PO SCH (08:25)
--- NOTE | 2022-08-12 08:40 | Internal Med Progress Note ---
SUBJECTIVE Subjective Patient information: Note initiated : 08/12/22 at 8:36 am Service Date, if different from initiated Date: [] Patient: Mendel Ingram a 47 y/o M admitted on 07/31/22 for enlarged testicles and has suicide ideations. Chief Complaint: [] Interval history: Mr. Ingram is a 47 year old male with a history of heart failure, hypertension, hydrocele, homelessness, morbid obesity was brought to the ED after someone overheard him talking about killing himself and called the police. In the ED, the patient denied suicidal ideation. He is frustrated because he is homeless, his vehicle is not functioning, he does not have a source of heat. Per report, the patient has been living in a truck in the local [facility] parking lot. In the ED, the patient was found to be severely volume overloaded and to have cellulitis in his scrotum and inner thighs. Patient was given IV antibiotics, hospital medicine was consulted for admission. After discussing the patient's medical history in more detail, he says that he does have a history of heart failure but has not been taking diuretics for some time because he ran out of medications. The patient says he also has obstructive sleep apnea and sleeps much better with the CPAP. A Romero catheter placement was attempted however unsuccessful because of scrotal edema. In the ED, the patient was afebrile, no leukocytosis however the patient's scrotum and inner thighs are erythematous, warm and tender suggestive of a cellulitis. This is probably been resident for some time. Patient is moderately hypertensive, creatinine was 1.3. The patient is severely volume overloaded on exam. 08/01 Overall improvement in clinical condition. Romero catheter placed yesterday afternoon by urology, the patient is diuresing well with Lasix IV. Renal function stable, electrolytes stable. Added vancomycin due to history of MRSA, continue ceftriaxone, for cellulitis. Echocardiogram report pending. Urine protein creatinine ratio elevated but not consistent with nephrotic syndrome. Ultrasound of scrotum showed a 5 cm complex septated hydrocele adjacent to the right testicle, increased from 3.3 cm on the prior ultrasound. Massive thickening of the scrotal tissue consistent with cellulitis. Diminished arterial blood flow to both testes on color Doppler possibly intratesticular artery compression from soft tissue swelling. Blood cultures pending. Urinalysis was negative for UTI. 08/02-patient seen in room. Bilateral lower extremity brawny induration/cellulitic change and foul-smelling odor. Diuresing well on 3 times a day Lasix. White count downtrending at 7.5, contraction alkalosis noted with bicarb at 34, creatinine 1.2, patient feels lethargic currently on noninvasive ventilation. Start Diamox for 2 doses, lower Lasix dose to 20 mg IV every 8. Continue antibiotic coverage/limb elevation/wound care/therapies and nutrition support Patient was found to be extreme lethargic, confused, stat ABG 7.3/elevated PCO2, start noninvasive ventilation, transfer to ICU, patient critically ill hypercapnic respiratory failure and hypercapnic encephalopathy. 08/03-patient overnight on noninvasive ventilation. Doing a lot better. More lucid alert, repeat ABG today. White count 7.4, sodium 134, bicarb 35 currently on acetazolamide/Lasix. Echocardiogram EF 33%. Severe systolic dysfunction now on beta-aly/ARB. On 3 L oxygen, net -15,000 cc over last 72 hours. Renal function stable. Creatinine down to 1.1, further lower diuretic dose in 24 hours. Continue physical therapy/weight loss reduction counseling/dietitian intervention 08/04: Patient is continue switching between BiPAP and nasal cannula oxygen's throughout the night and currently on 2 L/min of nasal cannula oxygen's. Continue to have good diuresis. Patient is complaining of improving degree of shortness of breath. The degree of the swelling of his scrotum and lower extremities has also improved. We will keep the patient in the PCU due to the fact that he is still on BiPAP part of the time. Switched Lasix from IV to 40 Mg p.o. twice daily. Finished Diamox. Continued metoprolol XL, losartan, and Aldactone as part of the management of his congestive heart failure exacerbations. Continue to wean down or off oxygen therapy as tolerated. Continue Rocephin for scrotal/bilateral inner thigh cellulitis. We will keep the Romero catheter in place as per urologist recommendations. Pending SNF placement when clinically ready. 08/05: Patient is continue to diurese fairly well, with fluid balance of -18.5 L since admissions. Patient is continue switching between BiPAP and nasal cannula o xygen's throughout the night and currently on room air. Patient is complaining of improving degree of shortness of breath. Swelling of his scrotum and lower extremities is also improved. We will keep the patient in the PCU due to the fact that he is still on BiPAP part of the time. We will change to CPAP tonight and see how the patient is tolerated. If the patient is tolerating CPAP instead of BiPAP tonight, [facility] Continue oral Lasix, metoprolol XL, losartan, and Aldactone as part of the management of his congestive heart failure exacerbation. Continue Rocephin for scrotal/bilateral inner thigh cellulitis. We will keep the Romero catheter in place as per urologist recommendations. Pending SNF placement. 08/06: Patient continue to diurese well overnight, and he tolerated CPAP last night while sleeping. Currently on 2L/min nasal cannula oxygen. He denies any shortness of breath at the moment. Swelling of his scrotum and lower extremities is also improved. Will downgrade patient from PCU to [facility] while waiting for SNF placement. Continue supplemental oxygen therapy during the day and CPAP during the night while sleeping. Continue oral Lasix, metoprolol XL, losartan, and Aldactone as part of the management of his congestive heart failure exacerbation. d/c Rocephin. We will keep the Romero catheter in place as per urologist r ecommendations. 08/07: Patient continue to diurese well overnight with fluid balance of -530cc over the past 12 hours. He tolerated CPAP last night while sleeping. Currently on 2L/min nasal cannula oxygen. He denies any shortness of breath at the moment. Swelling of his scrotum and lower extremities has also improved. Continue supplemental oxygen therapy during the day and CPAP during the night while sleeping. Continue oral Lasix, metoprolol XL, losartan, and Aldactone as part of the management of his congestive heart failure exacerbation. We will keep the Romero catheter in place as per urologist recommendations. Pending SNF placement. 08/08: Patient did not tolerate the CPAP mask last night, and respiratory therapist will bring him a new mask to try this afternoon. Otherwise patient's is breathing all right and he is on room air when he is awake. He still complaining of swelling of his scrotum and lower extremities, same degree compared to yesterday. He has a good appetite and good energy level. Continue supplemental oxygen therapy during the day as needed and will try the new CPAP mask as stated above. Continue oral Lasix, metoprolol XL, losartan, and Aldactone as part of the management of his congestive heart failure exacerbation. We will keep the Romero catheter in place as per urologist recommendations. Pending SNF placement. 08/09: Patient did not tolerate the CPAP mask again last night, I will instruct respiratory therapist to work with the patient's and look for means to make the mask to benefit for the patient. Patient stated that there is significant air leaks around the mask. He denies any cough or phobia or the pressure being too high. He could barely get any sleep last night because of that. Otherwise there is no other major overnight events. And patient is currently on room air. He denies any shortness of breath at the moment. Swelling of his scrotum and lower extremities has also improved. I will instruct respiratory therapist to work with the patient's and look for means to make the mask to benefit for the patient. Continue oral Lasix, metoprolol XL, losartan, and Aldactone as part of the management of his congestive heart failure exacerbation. We will keep the Romero catheter in place as per urologist recommendations. Pending SNF placement. 08/10: Patient have the following complaints: "My hair feels different, my left elbow feels sore and cannot bend or straighten up fully, my bilateral lateral abdomen/flank feel tight and sore, UT scrotum and lower extremities feel swollen and tight as well. Moreover, a few itchiness on my flank/lateral abdomen." Ordering occupational therapy to work with his upper extremities., Including range of motion exercises. Benadryl as needed itchiness. Continue oral diuretics, metoprolol XL, losartan, and Aldactone as part of the management of his congestive heart failure. We will keep the Romero catheter in place as per urologist recommendations. Pending SNF placement. 08/11 Patient feeling less edematous . Feeling little better. Urine output. Continue p.o. diuretics. Awaiting placement. Review of Systems: denies headache/fever/chills/nausea/vomiting/chest or abdominal pain/cough/dyspnea/diarrhea. Otherwise see above. Constitutional Vitals: Vital Signs Temp Pulse Resp BP Pulse Ox O2 Del Method O2 Flow Rate 97.9 F 90 20 126/67 94 0 08/12/22 03:15 08/12/22 03:15 08/12/22 03:15 08/12/22 03:15 08/12/22 03:15 08/12/22 03:15 08/10/22 13:05 Period Temp Pulse Resp BP Sys/Patiño Pulse Ox O2 Del Method O2 Flow Rate Last 24 Hr 97.5 F-98.2 F 79-90 20-24 103-127/46-90 93-96 Room Air-Room Air, CPAP Intake and Output 08/11/22 08/12/22 08/12/22 19:59 03:59 11:59 Intake Total 960 720 Output Total 4300 1425 Balance -3340 -705 Weight 208.879 kg Intake & Output: Intake & Output 08/11/22 08/12/22 08/12/22 19:59 03:59 11:59 Intake Total 960 720 Output Total 4300 1425 Balance -3340 -705 Weight 208.879 kg Intake: Oral 960 720 Output: Urine Catheter Amount 4300 1425 Other: Meal Breakfast cereal, milk, & OJ Percent of Meal Consumed 100% 100% Feeding Ability Independent Independent Urine Appearance Clear Clear Uretheral (Romero) Clear Urine Color Yellow Yellow Uretheral (Romero) Yellow Pale Stool Size Small Stool Color Brown Stool Consistency Normal for Patient Soft # Bowel Movements 1 Exam: General: Alert, Awake, No acute Distress, obese Eyes/N/T: EOMI, Head/Neck: neck supple, CV: RRR, No murmurs, Pulm: Clear b/l, no wheezing/rhonchi/rales Abd: soft, nontender, +BS x4 : Swollen scrotum with mild erythema and warmth and tenderness to touch. Romero catheter in place Ext: no clubbing/cyanosis, b/l LE 3+ edema, edema to mid-abdomen, stasis dermatitis Neuro: Alert, no focal deficits, moves all extremities, Skin: warm/dry OBJ DATA Labs CBC & Chem 7: 08/09/22 06:16 08/11/22 05:21 Labs: Abnormal Lab Results 08/11/22 05:21 Chloride 93 L Carbon Dioxide 33 H BUN 22 H Globulin 4.3 H Albumin/Globulin Ratio 0.8 L Meds: Medications Acetaminophen (Acetaminophen 325 Mg Tablet) 650 mg PO Q6HP PRN; Protocol PRN Reason: Per Pain Protocol Last Admin: 08/08/22 06:10 Dose: 650 mg Hydrocodone Bitart/Acetaminophen (Hydrocodone/Apap 5/325mg Tablet) 1 tab PO Q4HP PRN; Protocol PRN Reason: Per Pain Protocol Last Admin: 08/12/22 03:25 Dose: 1 tab Diazepam (Diazepam 2 Mg Tablet) 2 mg PO TIDP PRN PRN Reason: anxiety Last Admin: 08/11/22 12:04 Dose: 2 mg Diphenhydramine HCl (Diphenhydramine 25 Mg Capsule) 50 mg PO Q4-6HP PRN PRN Reason: Itching Docusate Sodium (Docusate Sodium 100 Mg Capsule) 100 mg PO BID [facility] Last Admin: 08/12/22 08:24 Dose: 100 mg Enoxaparin Sodium (Enoxaparin 40 Mg/0.4 Ml Syringe) 40 mg SQ DAILY [facility] Last Admin: 08/12/22 08:25 Dose: 40 mg Furosemide (Furosemide 40 Mg Tablet) 40 mg PO BIDD [facility] Last Admin: 08/12/22 08:24 Dose: 40 mg Lactulose (Lactulose 20 Gm/30 Ml Oral.Marquita) 10 gm PO DAILYP PRN PRN Reason: Constipation Losartan Potassium (Losartan 25 Mg Tablet) 25 mg PO DAILY [facility] Last Admin: 08/12/22 08:25 Dose: 25 mg Metoprolol Succinate (Metoprolol Succinate 25 Mg Tab.Xl.24h) 12.5 mg PO DAILY [facility] Last Admin: 08/12/22 08:25 Dose: 12.5 mg Nicotine (Nicotine 21 Mg Patch) 21 mg TOPICAL DAILY@1000 [facility] Last Admin: 08/11/22 13:03 Dose: Not Given Nicotine Polacrilex (Nicotine Polacrilex 2 Mg Gum) 2 mg CHEW/PARK Q4HP PRN PRN Reason: Withdrawl Symptoms Last Admin: 08/10/22 11:32 Dose: 2 mg Nystatin (Nystatin Powder Bottle 15gm) 1 dose TOPICAL TIDP PRN PRN Reason: Skin Irritation Last Admin: 08/02/22 20:00 Dose: 1 dose Ondansetron HCl (Ondansetron 4 Mg/2 Ml Vial) 4 mg IV Q4HP PRN; Protocol PRN Reason: Nausea And Vomiting Last Admin: 08/01/22 11:00 Dose: 4 mg Senna (Sennosides 1 Tablet) 2 tab PO HSP PRN PRN Reason: Constipation Spironolactone (Spironolactone 25 Mg Tablet) 25 mg PO DAILY PINKY Last Admin: 08/12/22 08:24 Dose: 25 mg A/P Narrative A/P Narrative: Assessment and Plans: *Acute on likely chronic Systolic(35%) CHF exacerbation: -Daily weight, Strict intake and output -Lasix 40mg PO BID, Aldactone -Metoprolol XL, Losartan -Need cardiology outpatient referral *Scrotal swelling, anasarca: -Continue diuresis, see above * Morbid obesity: BMI 70 -Lump Roller patient on life style modifications including healthy diet/regular exercise in order to lose weight *Anemia, normocytic normochromic: Stable, d/c daily cbc *Urethral stricture: s/p Romero catheter placement by urologist Dr. Newton, will leave it in place for now -Need urology outpatient follow up *Obstructive sleep apnea: -RT to assist *ppx: Lovenox Time Spent With Patient Time: Total time spent is greater than 50% in coordination of care (as documented) at patient's floor/unit and/or counseling patient: Total time spent with greater than 50% in coordination of care (as documented) at patient's floor/unit and/or counseling patient:: 35 - 50 minutes QUALITY VTE Deep Vein Thrombosis/Pulmonary Embolism Present on Admission: No
== END 2022-08-12 09:50 | disposition home or self-care (01) | DRG 291 ==
LOC: ED 01:00 → MEDSUR 01:00 → ICU 08:40 → MEDSUR 08-09 13:19
PROVIDERS: ADMIT Internal Medicine; ATTEND Internal Medicine

== ENCOUNTER 2022-11-15 09:15 | Inpatient (IN) ==
[2022-11-15] MEDS ORDERED: FUROSEMIDE 40 MG/4 ML VIAL IV ONE (09:46)
[2022-11-15 09:48] LABS: POC Calcium, Ionized 1.11 (1.16-1.32); POC Creatinine 1.4 (0.6-1.2); POC Potassium 3.8 (3.3-5.1)
--- NOTE | 2022-11-15 09:52 | Emergency Department Note ---
SOB HPI General Chief Complaint: Shortness of Breath/Dyspnea Stated Complaint: CHF, weakness Time Seen by Provider: 11/15/22 09:23 Source: patient and EMS Mode of arrival: EMS Limitations: no limitations History of Present Illness HPI Narrative: MedicNarrative: The patient is brought in by EMS for shortness of breath. Patient has a history of congestive heart failure and states that he has not taken patient in about 3 months. He states this is due to his physician being on sabbatical and the inability to see another physician and the refusal of the pharmacy to give him any medications. Patient denies chest pain. He says he has had a cough for the last several days. He says this is productive. He denies any fever. He says that he feels like he is retaining "too much water." He feels like his whole body is swollen. He does have some orthopnea. Related Data Previous Rx's Medication Instructions Recorded furosemide 40 mg tablet 40 mg PO BIDD #60 tabs 08/10/22 losartan 25 mg tablet 25 mg PO DAILY #30 tabs 08/10/22 metoprolol succinate 25 mg 12.5 mg PO DAILY #30 tabs 08/10/22 tablet,extended release 24 hr spironolactone 25 mg tablet 25 mg PO DAILY #30 tabs 08/10/22 Allergies Allergy/AdvReac Type Severity Reaction Status Date / Time No Known Drug Allergies Allergy Verified 08/25/22 20:17 Review of Systems ROS ROS Narrative: Narrative: All systems ED: reviewed and negative except as stated. [facility] Narrative Patient History Narrative: Narrative: Medical/Surgical/Family History All Active Problems (Updated 11/15/22 @ 13:08 by Lion London MD) Dry hair (Acute) Anemia, normocytic normochromic (Acute) Anasarca (Acute) Obstructive sleep apnea (Acute) Morbid obesity (Acute) Cellulitis of scrotum (Acute) Urinary tract infection (Acute) Urinary retention (Acute) Congestive heart failure (Chronic) Otalgia (Acute) Sinus pressure (Acute) Headache (Acute) Anxiety (Acute) Abrasion of ankle, right (Acute) History of acute congestive heart failure (Acute) Pedal edema (Acute) Medication refill (Acute) Acute exacerbation of CHF (congestive heart failure) (Acute) Asthma exacerbation (Acute) Acute exacerbation of CHF (congestive heart failure) (Acute) Pneumonia involving right lung (Acute) Sepsis (Acute) Weakness (Acute) Erysipelas (Acute) Bilateral hydrocele (Chronic) Scrotal edema (Chronic) Urethral stricture (Acute) Medical History (Updated 11/15/22 @ 13:08 by Lion London MD) Hypertension Social History Smoking Status: Never smoker Exam Narrative Narrative: Narrative: General Limitations: no limitations General appearance: Present alert and in no apparent distress Head Head: Present atraumatic and normal inspection Eye Eye: Present normal appearance ENT ENT: Present mucous membranes moist Neck Neck: Present normal inspection, full ROM and trachea midline Chest Chest: Present normal inspection and symmetric chest wall rise Respiratory Respiratory: Present rales/crackles; Absent respiratory distress Cardiovascular Cardiovascular: Present normal rhythm, tachycardia and other (Bilateral radial 2+) Adbominal Abdominal: Present soft; Absent distention or tenderness Extremities Extremities: Present normal inspection, full ROM and pedal edema; Absent calf tenderness Back Back: Present full ROM Neurological Neurological: Present alert and oriented X3 Psychiatric Psychiatric: Present normal affect and normal mood Skin Skin: Present warm (WNL) and dry Course Consultations Consultation #1: I spoke to the hospitalist, Dr. Pino. He asked me to get a CBC but agreed to admit Time: 13:08 Vital Signs Vital signs: Vital Signs Temperature 98.3 F 11/15/22 09:25 Pulse Rate 106 H 11/15/22 09:25 Respiratory Rate 20 11/15/22 09:25 Blood Pressure 157/109 11/15/22 09:25 Pulse Oximetry (%) 90 11/15/22 09:25 Oxygen Delivery Method Room Air 11/15/22 09:25 Temperature 98.3 F 11/15/22 09:25 Pulse Rate 110 H 11/15/22 13:04 Respiratory Rate 18 11/15/22 13:04 Blood Pressure 149/88 11/15/22 13:01 Pulse Oximetry (%) 90 11/15/22 13:04 Oxygen Delivery Method Nasal Cannula 11/15/22 10:01 Oxygen Flow Rate (L/min) 3 11/15/22 10:01 [facility] MDM Narrative Medical decision making narrative: Narrative: The patient presents with dyspnea. I suspect that this is congestive heart failure exacerbation, most likely due to patient's noncompliance. We will obtain a chest x-ray and appropriate labs. Given the cough, we will swab for viruses. Plan to start the diuresis with 40 mg of IV Lasix. Patient most likely will need to be admitted to the hospital for continued diuresis given his hypoxia without supplemental oxygen. Lab Data Lab results reviewed: Yes I reviewed the patient's lab results. Labs: Lab Results 11/15/22 11/15/22 11/15/22 Range/Units 09:43 09:47 09:52 POC Hct 42.0 (41-55) POC VBG pH (7.32-7.42) POC VBG pCO2 at Temp (41-51) POC VBG pO2 (25-40) POC VBG HCO3 (24-28) POC VBG Total CO2 (25-29) POC Venous O2 Sat (40-70) POC VBG Base Excess (-2-2) VBG Lactic Acid (0.5-2) POC Sodium 141 (133-145) POC Potassium 3.8 (3.3-5.1) POC Chloride 98 (96-108) POC Total CO2 32.0 H (22-30) POC BUN 18 (6-20) POC Creatinine 1.4 H (0.6-1.2) POC Glucose 128 H (70-105) POC WB Ioniz Calcium 1.11 L (1.16-1.32) Total Bilirubin 1.2 H (0.1-1.0) mg/dL Direct Bilirubin 0.6 H (<0.3) mg/dL AST 21 (<40) U/L ALT 13 (<40) U/L Alkaline Phosphatase 151 H (39-117) U/L NT-Pro-B Natriuret Pep 3408.0 H (<125.0) pg/mL Total Protein 8.7 H (5.9-8.4) gm/dL Albumin 3.3 (3.2-5.2) gm/dL Globulin 5.4 H (2.2-3.7) gm/dL Urine Color Urine Appearance (Clear) Urine pH (5.0-9.0) Ur Specific [facility] (1.000-1.035) Urine Protein (Negative) mg/dL Urine Glucose (UA) (Negative) mg/dL Urine Ketones (Negative) mg/dL Urine Occult Blood (Negative) mg/dL Urine Nitrate (Negative) Urine Bilirubin (Negative) mg/dL Urine Urobilinogen mg/dL Ur Leukocyte Esterase (Negative) /uL Urine RBC (0-3) /hpf Urine WBC (0-4) /hpf Ur Squamous Epith Cells (0-4) /hpf Ur Transition Epith Cell (0-2) /hpf Urine Bacteria (0) /hpf Hyaline Casts (0-2) /lph Urine Mucus (None) /hpf Ur Culture Indicated? POC Troponin I 0.02 (0.00-0.08) 11/15/22 11/15/22 Range/Units 10:20 10:41 POC Hct (41-55) POC VBG pH 7.28 L (7.32-7.42) POC VBG pCO2 at Temp 69.1 H* (41-51) POC VBG pO2 69 H (25-40) POC VBG HCO3 32.4 H (24-28) POC VBG Total CO2 34.0 H (25-29) POC Venous O2 Sat 90.0 H (40-70) POC VBG Base Excess 6.0 H* (-2-2) VBG Lactic Acid 0.7 (0.5-2) POC Sodium (133-145) POC Potassium (3.3-5.1) POC Chloride (96-108) POC Total CO2 (22-30) POC BUN (6-20) POC Creatinine (0.6-1.2) POC Glucose (70-105) POC WB Ioniz Calcium (1.16-1.32) Total Bilirubin (0.1-1.0) mg/dL Direct Bilirubin (<0.3) mg/dL AST (<40) U/L ALT (<40) U/L Alkaline Phosphatase (39-117) U/L NT-Pro-B Natriuret Pep (<125.0) pg/mL Total Protein (5.9-8.4) gm/dL Albumin (3.2-5.2) gm/dL Globulin (2.2-3.7) gm/dL Urine Color Kathleen Urine Appearance Hazy A (Clear) Urine pH 5.0 (5.0-9.0) Ur Specific [facility] 1.015 (1.000-1.035) Urine Protein 100 A (Negative) mg/dL Urine Glucose (UA) Negative (Negative) mg/dL Urine Ketones Negative (Negative) mg/dL Urine Occult Blood 0.03 (Negative) mg/dL Urine Nitrate Pos A (Negative) Urine Bilirubin Negative (Negative) mg/dL Urine Urobilinogen 4.0 A mg/dL Ur Leukocyte Esterase 75 A (Negative) /uL Urine RBC 4 H (0-3) /hpf Urine WBC 23 H (0-4) /hpf Ur Squamous Epith Cells 3 (0-4) /hpf Ur Transition Epith Cell < 1 (0-2) /hpf Urine Bacteria Mod A (0) /hpf Hyaline Casts 13 H (0-2) /lph Urine Mucus Mod A (None) /hpf Ur Culture Indicated? yes POC Troponin I (0.00-0.08) ED POC Tests ED POC Tests: TEAGAN - Influenza A Negative TEAGAN - Influenza B Negative TEAGAN - SARS Antigen Negative Radiology Data Radiology results reviewed: Yes I reviewed the patient's radiology results. EKG Data EKG #1: EKG attestation: Yes I reviewed and interpreted this EKG. and Yes There are no EKG findings of acute coronary syndrome EKG results narrative: Sinus, rate 112, left axis, QTc 477, FL 178, slightly widened QRS, no acute ST or T changes concerning for acute infarction or ischemia Discharge Plan Patient/Caregiver Discharge Instructions Pt seen by SLITTER HELPER/PA only: No Clinical Impression: Acute exacerbation of CHF (congestive heart failure) Qualifiers: Heart failure type: unspecified Qualified Code(s): I50.9 - Heart failure, unspecified Patient Disposition: Xfer As Inpt ([facility]) Condition: Fair Follow up with: Virginia Sanchez ARNP [Primary Care Provider] - Prescriptions: No Action furosemide 40 mg Tablet 40 mg PO BIDD Qty: 60 0RF spironolactone 25 mg Tablet 25 mg PO DAILY Qty: 30 0RF losartan 25 mg Tablet 25 mg PO DAILY Qty: 30 0RF metoprolol succinate 25 mg Tablet Extended Release 24 Hr 12.5 mg PO DAILY Qty: 30 0RF
--- NOTE | 2022-11-15 10:15 | XRay Report ---
CLINICAL INFORMATION: Dyspnea COMPARISON: 04/09/2022 TECHNIQUE: Portable FINDINGS: Marked cardiomegaly has increased from previous exam. Mediastinum is unremarkable. The pulmonary vessels are mildly distended. No definite edema. Minor scattered fibrosis or atelectasis present in both mid and lower lungs-more prominent on the right. Small bilateral pleural effusions noted. IMPRESSION: Mild CHF Interpreted and Authenticated by: Freddie Pate 11/15/22
[2022-11-15 10:56] LABS: ALT/SGPT 13 U/L (<40); AST/SGOT 21 U/L (<40); Albumin 3.3 gm/dL (3.2-5.2); Alkaline Phosphatase 151 U/L (39-117); Bilirubin,Direct 0.6 mg/dL (<0.3); Bilirubin,Total 1.2 mg/dL (0.1-1.0); Globulin 5.4 gm/dL (2.2-3.7)
[2022-11-15 12:02] LABS: Appearance,Urine HAZY (Clear); Bacteria,Urine MOD /hpf (0); Bilirubin,Urine Negative (Negative); Color,Urine AMBER; Culture Indicated,Urine yes; Glucose,Urine (UA) Negative (Negative); Ketones,Urine Negative (Negative); Leukocyte Esterase,Urine 75 /uL (Negative); Mucus,Urine MOD /hpf; Nitrate,Urine POS (Negative); Protein,Urine 100 mg/dL (Negative); Specific Gravity,Urine 1.015 (1.000-1.035); Urine Blood 0.03 mg/dL (Negative); Urine Hyaline Cast 13 /lph (0-2); Urine RBC 4 /hpf (0-3); Urine Squamous Epithelial Cell 3 /hpf (0-4); Urine Transitional Epi Cells < 1 /hpf (0-2); Urine WBC 23 /hpf (0-4)
[2022-11-15] MEDS ORDERED: cefTRIAXone 1 GM VIAL IV ONE ×2 (12:10→14:30)
--- NOTE | 2022-11-15 13:40 | Internal Med History&Physical ---
HPI History of Present Illness Patient information: Note initiated : 11/15/22 at 1:33 pm Service Date, if different from initiated Date: [] Patient: Mendel Ingram a 47 y/o M admitted on for CHF, weakness. Chief Complaint: [] History of present illness: Mr. Ingram is a 47 year old male with a history of heart failure with reduced ejection fraction, hypertension, obesity, obstructive sleep apnea currently not treated with CPAP who presented to the emergency department with a chief complaint of shortness of breath. The patient says that he ran out of his medications and has not been able to get them refilled. In the emergency department, the patient was noted to have an oxygen requirement. Chest x-ray showed pulmonary vascular congestion. Patient does appear to have a mild acute kidney injury on chemistry labs. A venous blood gas showed a pH of 7.28 and a PCO2 of 69.1. Lactic acid was normal. NT pro BNP was elevated at 3800. Troponin level was normal. Hospital medicine was consulted to admit the patient for acute on chronic heart failure complicated by acute hypoxemic respiratory failure as well as hypercapnic respiratory failure. Review of systems Constitutional: no fever, fatigue, or weight loss Eyes: no vision changes or pain Cardiovascular: no chest pain, no palpitations Respiratory: Positive for shortness of breath Gastrointestinal: no abdominal pain, no nausea, vomiting, or diarrhea Genitourinary: no dysuria or difficulty voiding Musculoskeletal: Positive for diffuse swelling Integumentary: no skin lesion or wound Neurological: no focal weakness or numbness Psychiatric: no anxiety or depression Physical exam Head: Atraumatic, normal inspection. Eyes: normal appearance, no scleral icterus. Neck: full ROM Respiratory: 3 L/min nasal cannula oxygen supplementation, diminished breath sounds bilaterally Cardiovascular: normal rate and rhythm, S1, S2. GI/Abdominal: Obesely soft, nontender, no guarding. : Scrotal edema Extremities: Bilateral lower extremity pitting edema, full range of motion, nontender. Neurological: CN II-XII intact, intact motor, intact sensation. Psychiatric: normal mood. Skin: Erythema in bilateral thighs, mildly tender, warm PFSH PFSH All Active Problems (Updated 11/15/22 @ 13:08 by Lion London MD) Dry hair (Acute) Anemia, normocytic normochromic (Acute) Anasarca (Acute) Obstructive sleep apnea (Acute) Morbid obesity (Acute) Cellulitis of scrotum (Acute) Urinary tract infection (Acute) Urinary retention (Acute) Congestive heart failure (Chronic) Otalgia (Acute) Sinus pressure (Acute) Headache (Acute) Anxiety (Acute) Abrasion of ankle, right (Acute) History of acute congestive heart failure (Acute) Pedal edema (Acute) Medication refill (Acute) Acute exacerbation of CHF (congestive heart failure) (Acute) Asthma exacerbation (Acute) Acute exacerbation of CHF (congestive heart failure) (Acute) Pneumonia involving right lung (Acute) Sepsis (Acute) Weakness (Acute) Erysipelas (Acute) Bilateral hydrocele (Chronic) Scrotal edema (Chronic) Urethral stricture (Acute) Medical History (Updated 11/15/22 @ 13:08 by Lion London MD) Hypertension Social History smoking status: Never smoker MEDS/ALLERGIES Home Medications and Allergies Home Medications Medication Instructions Recorded Confirmed Type furosemide 40 mg tablet 40 mg PO BIDD #60 tabs 08/10/22 Rx losartan 25 mg tablet 25 mg PO DAILY #30 tabs 08/10/22 Rx metoprolol succinate 25 mg 12.5 mg PO DAILY #30 tabs 08/10/22 Rx tablet,extended release 24 hr spironolactone 25 mg tablet 25 mg PO DAILY #30 tabs 08/10/22 Rx Allergies Allergy/AdvReac Type Severity Reaction Status Date / Time No Known Drug Allergies Allergy Verified 08/25/22 20:17 EXAM Constitutional Vitals: Temp Pulse Resp BP Pulse Ox O2 Del Method O2 Flow Rate 98.3 F 110 H 18 149/88 90 Nasal Cannula 3 11/15/22 09:25 11/15/22 13:04 11/15/22 13:04 11/15/22 13:01 11/15/22 13:04 11/15/22 10:01 11/15/22 10:01 DATA Data Completed and Pending Labs: Labs from last 24 hours 11/15/22 11/15/22 11/15/22 13:09 10:41 10:20 WBC Pending RBC Pending Hgb Pending Hct Pending POC Hct MCV Pending MCH Pending MCHC Pending RDW Pending Plt Count Pending MPV Pending Immature Gran % (Auto) Pending Neut % (Auto) Pending Immature Gran # Pending POC VBG pH 7.28 L POC VBG pCO2 at Temp 69.1 H* POC VBG pO2 69 H POC VBG HCO3 32.4 H POC VBG Total CO2 34.0 H POC Venous O2 Sat 90.0 H POC VBG Base Excess 6.0 H* VBG Lactic Acid 0.7 POC Sodium POC Potassium POC Chloride POC Total CO2 POC BUN POC Creatinine POC Glucose POC WB Ioniz Calcium Total Bilirubin Direct Bilirubin AST ALT Alkaline Phosphatase NT-Pro-B Natriuret Pep Total Protein Albumin Globulin Urine Color [place] Urine Appearance Hazy A Urine pH 5.0 Ur Specific [place] 1.015 Urine Protein 100 A Urine Glucose (UA) Negative Urine Ketones Negative Urine Occult Blood 0.03 Urine Nitrate Pos A Urine Bilirubin Negative Urine Urobilinogen 4.0 A Ur Leukocyte Esterase 75 A Urine RBC 4 H Urine WBC 23 H Ur Squamous Epith Cells 3 Ur Transition Epith Cell < 1 Urine Bacteria Mod A Hyaline Casts 13 H Urine Mucus Mod A Ur Culture Indicated? yes POC Troponin I 11/15/22 11/15/22 11/15/22 09:52 09:47 09:43 WBC RBC Hgb Hct POC Hct 42.0 MCV MCH MCHC RDW Plt Count MPV Immature Gran % (Auto) Neut % (Auto) Immature Gran # POC VBG pH POC VBG pCO2 at Temp POC VBG pO2 POC VBG HCO3 POC VBG Total CO2 POC Venous O2 Sat POC VBG Base Excess VBG Lactic Acid POC Sodium 141 POC Potassium 3.8 POC Chloride 98 POC Total CO2 32.0 H POC BUN 18 POC Creatinine 1.4 H POC Glucose 128 H POC WB Ioniz Calcium 1.11 L Total Bilirubin 1.2 H Direct Bilirubin 0.6 H AST 21 ALT 13 Alkaline Phosphatase 151 H NT-Pro-B Natriuret Pep 3408.0 H Total Protein 8.7 H Albumin 3.3 Globulin 5.4 H Urine Color Urine Appearance Urine pH Ur Specific [place] Urine Protein Urine Glucose (UA) Urine Ketones Urine Occult Blood Urine Nitrate Urine Bilirubin Urine Urobilinogen Ur Leukocyte Esterase Urine RBC Urine WBC Ur Squamous Epith Cells Ur Transition Epith Cell Urine Bacteria Hyaline Casts Urine Mucus Ur Culture Indicated? POC Troponin I 0.02 A/P Narrative A/P Narrative: Assessment: 47-year-old male with a history of hypertension, heart failure with reduced ejection fraction, obstructive sleep apnea, morbid obesity admitted for hypoxemic and hypercapnic respiratory failure occurring in the setting of acute on chronic systolic heart failure exacerbation. In the ED, the patient had a urinalysis that was suggestive of UTI. #Acute on chronic hypoxic respiratory failure #Probably acute on chronic hypoxemic respiratory failure #Acute on chronic systolic heart failure exacerbation #Severe volume overload/anasarca #Acute kidney injury likely secondary to heart failure #Possible nonpurulent cellulitis of bilateral lower extremities #Possible UTI versus bacteriuria #Hypertension #Obstructive sleep apnea #Probable obesity hypoventilation syndrome #Obesity BMI 55 Plan -Start Lasix infusion, titrate to effect and monitor diuresis. -Potassium supplementation as needed. -Continue ceftriaxone for possible cellulitis and UTI. -Transthoracic echocardiogram. -Monitor renal function and urine output, daily weight with diuresis. -Follow CBC with differential, IPP, check CRP. -BiPAP for now then repeat VBG. -Urology consulted for difficult Romero catheter placement. -Home medication reconciliation. -potline monitor. -Consider tele cardiology consult. -Cardiac diet. -DVT prophylaxis: Heparin SQ. -CODE STATUS: Supervisor Cytology Spent With Patient Time: Total time spent is greater than 50% in coordination of care (as documented) at patient's floor/unit and/or counseling patient:
[2022-11-15] MEDS ORDERED: ONDANSETRON 4 MG/2 ML VIAL IV PRN (14:09)
[2022-11-15] MEDS ORDERED: ACETAMINOPHEN 325 MG TABLET PO PRN (14:09)
[2022-11-15] MEDS ORDERED: SENNOSIDES 1 TABLET PO PRN (14:09)
[2022-11-15] MEDS ORDERED: POTASSIUM CHLORIDE 20 MEQ TABLET PO ONE (14:09)
[2022-11-15] MEDS ORDERED: FUROSEMIDE 250 MG in 0.9 % SODIUM CHLORIDE 225 ML IV SCH (14:09)
[2022-11-15] MEDS ORDERED: LACTULOSE 20 GM/30 ML ORAL.SOL PO PRN (14:09)
[2022-11-15 14:41] LABS: Basophils # (Auto) 0.05 K/mcL (0.00-0.30); Basophils % (Auto) 0.8 % (0.0-2.0); Eosinophils # (Auto) 0.12 K/mcL (0.00-0.70); Eosinophils % (Auto) 1.8 % (0.0-7.0); Hematocrit 41.4 % (40.1-51.0); Hemoglobin 11.9 g/dL (13.7-17.5); Lymphocytes # (Auto) 0.92 K/mcL (1.50-4.80); Lymphocytes % (Auto) 13.9 % (15.5-49.0); Mean Cell Volume 91.8 fL (80.0-100.0); Mean Corpuscular HGB Conc 28.7 g/dL (31.0-36.0); Mean Platelet Volume 9.9 fL (8.8-12.5); Monocytes # (Auto) 0.65 K/mcL (0.10-0.90); Monocytes % (Auto) 9.8 % (1.0-12.0); Neutrophils % (Auto) 73.4 % (38.0-78.0); Platelet Count 177 K/mcL (140-440); RBC 4.51 M/mcL (4.63-6.08); Red Cell Distribution Width 19.9 % (11.5-14.5); WBC 6.6 K/mcL (4.5-11.0)
[2022-11-15] MEDS: FUROSEMIDE 250 MG in 0.9 % SODIUM CHLORIDE 225 ML IV SCH (14:58)
[2022-11-15] MEDS: 0.9 % SODIUM CHLORIDE 10 ML SYRINGE IV SCH ×2 (15:06→21:28)
[2022-11-15 15:38] LABS: ALT/SGPT 13 U/L (<40); AST/SGOT 20 U/L (<40); Albumin 3.4 gm/dL (3.2-5.2); Albumin/Globulin Ratio 0.6 (1.0-2.3); Alkaline Phosphatase 148 U/L (39-117); Bilirubin,Direct 0.6 mg/dL (<0.3); Bilirubin,Total 1.2 mg/dL (0.1-1.0); Blood Urea Nitrogen 16 mg/dL (6-20); Calcium 8.8 mg/dL (8.6-10.4); Carbon Dioxide 27 mmol/L (22-30); Chloride 99 mmol/L (96-108); Globulin 5.3 gm/dL (2.2-3.7); Glomerular Filtration Rate 65; Glucose 122 mg/dL (70-105); Lactate Dehydrogenase 247 U/L (135-225); Phosphorous 3.1 mg/dL (2.5-4.5); Triglycerides 51 mg/dL (<150); Uric Acid 6.9 mg/dL (2.5-8.0)
[2022-11-15 16:03] LABS: Creatinine, Spot Urine 110.4 mg/dL (39.0-259.0); Pro:Crea Ratio 0.75 (<0.20)
[2022-11-15 16:30] LABS: ABG Methemoglobin 0.3 % (0.4-1.5); Total Hemoglobin 13.5 gm/Dl (13.5-16.5); VBG Base Excess 1 (-2-3); VBG HCO3 30.4 mmol/L (24.0-28.0); VBG Oxygen Saturation 77.6 % (40.0-70.0); VBG PCO2 69.9 mmHg (41.0-51.0); VBG PH 7.26 U (7.32-7.42); VBG PO2 50.9 mmHg (25.0-40.0); VBG Total CO2 32.5 mmol/L (25.0-29.0)
--- NOTE | 2022-11-15 17:45 | Urology Consult Note ---
HPI Date of Consult Consult Date: 11/15/22 Primary Care Provider: Virginia Sanchez Consult Narrative Patient Information: Note initiated : 11/15/22 at 5:35 pm Service Date, if different from initiated Date: [] Patient: Mendel Ingram a 47 y/o M admitted on 11/15/22 for CHF, weakness. Chief Complaint: [] Mr. Mendel Ingram is a 47-year-old gentleman admitted today by the hospitalist service for acute on chronic respiratory failure and congestive heart failure. Patient has massive anasarca and is currently being diuresed by the hospitalist service. Because of his body habitus, large pannus, scrotal swelling he is a very difficult catheter placement. He also has a known history of urethral stricture. During his last hospitalization in July 2022 Dr. Newton placed a Romero catheter after urethral dilation under light conscious sedation. Patient states it was the most painful experience of his life and he does not want to do that again. Currently he is essentially incontinent and voiding into a adult diaper. Patient states he has a fairly good urinary stream and denies any pain with voiding. He is unable to get up to void. cc:: CC: Torres Pino MD Constitutional Constitutional: Present as per HPI, fatigue and stops breathing during sleep EENT Eyes: Absent change in vision Nose, mouth and throat: Absent sore throat Cardiovascular Cardiovascular: Present dyspnea, edema, leg edema, orthopnea, palpatations, pedal edema and rapid heart rate Respiratory Respiratory: Present dyspnea, wheezing and chest congestion Gastrointestinal Gastrointestinal: Present abdominal pain and bloating Genitourinary Genitourinary: as per HPI Musculoskeletal Musculoskeletal: Present limited range of motion and stiffness Integumentary Integumentary: Present non-healing lesions PFSH PFSH All Active Problems Urinary tract infection (Acute) Urinary retention (Acute) Congestive heart failure (Chronic) Otalgia (Acute) Sinus pressure (Acute) Headache (Acute) Anxiety (Acute) Abrasion of ankle, right (Acute) History of acute congestive heart failure (Acute) Pedal edema (Acute) Medication refill (Acute) Acute exacerbation of CHF (congestive heart failure) (Acute) Asthma exacerbation (Acute) Acute exacerbation of CHF (congestive heart failure) (Acute) Pneumonia involving right lung (Acute) Sepsis (Acute) Weakness (Acute) Erysipelas (Acute) Bilateral hydrocele (Chronic) Scrotal edema (Chronic) Urethral stricture (Acute) Cellulitis of scrotum (Acute) Morbid obesity (Acute) Obstructive sleep apnea (Acute) Anasarca (Acute) Anemia, normocytic normochromic (Acute) Dry hair (Acute) Medical History Hypertension Social History smoking status: Current some day smoker MEDS/ALLERGIES Home Medications and Allergies Home Medications Medication Instructions Recorded Confirmed Type furosemide 40 mg tablet 40 mg PO BIDD #60 tabs 08/10/22 11/15/22 Rx losartan 25 mg tablet 25 mg PO DAILY #30 tabs 08/10/22 11/15/22 Rx metoprolol succinate 25 mg 12.5 mg PO DAILY #30 tabs 08/10/22 11/15/22 Rx tablet,extended release 24 hr spironolactone 25 mg tablet 25 mg PO DAILY #30 tabs 08/10/22 11/15/22 Rx Allergies Allergy/AdvReac Type Severity Reaction Status Date / Time No Known Drug Allergies Allergy Verified 08/25/22 20:17 Physical Examination Vital Signs Vital signs: Temp Pulse Resp BP Pulse Ox O2 Del Method O2 Flow Rate 97.0 F 94 H 12 156/100 94 Nasal Cannula 3 11/15/22 16:01 11/15/22 16:06 11/15/22 16:06 11/15/22 16:01 11/15/22 16:06 11/15/22 14:30 11/15/22 14:30 General physical appearance General physical exam: moderate distress and chronically ill Head Head exam IM: Present atraumatic Abdomen Abdomen: Present distended; Absent rigid or rebound Genitourinary Genitourinary (Male): Absent normal penis with no external lesions (Patient has massive scrotal edema I am unable to palpate either testicle I am unable to visualize the head of the penis) Psychiatric Psychiatric: Present oriented to time, oriented to person, oriented to place, speech is normal and memory intact Results Labs 11/15/22 13:09 11/15/22 12:00 Labs: Abnormal lab results 11/15/22 11/15/22 11/15/22 Range/Units 09:43 09:47 10:20 RBC (4.63-6.08) M/mcL Hgb (13.7-17.5) g/dL MCHC (31.0-36.0) g/dL RDW (11.5-14.5) % Lymph % (Auto) (15.5-49.0) % Lymph # (Auto) (1.50-4.80) K/mcL ABG Methemoglobin (0.4-1.5) % VBG pH (7.32-7.42) U POC VBG pH 7.28 L (7.32-7.42) VBG pCO2 (41.0-51.0) mmHg POC VBG pCO2 at Temp 69.1 H* (41-51) VBG pO2 (25.0-40.0) mmHg POC VBG pO2 69 H (25-40) VBG HCO3 (24.0-28.0) mmol/L POC VBG HCO3 32.4 H (24-28) VBG Total CO2 (25.0-29.0) mmol/L POC VBG Total CO2 34.0 H (25-29) VBG O2 Saturation (40.0-70.0) % POC Venous O2 Sat 90.0 H (40-70) POC VBG Base Excess 6.0 H* (-2-2) Carboxyhemoglobin (0.0-1.5) % THgb POC Total CO2 32.0 H (22-30) Creatinine (0.7-1.2) mg/dL POC Creatinine 1.4 H (0.6-1.2) Glucose (70-105) mg/dL POC Glucose 128 H (70-105) POC WB Ioniz Calcium 1.11 L (1.16-1.32) Total Bilirubin 1.2 H (0.1-1.0) mg/dL Direct Bilirubin 0.6 H (<0.3) mg/dL Alkaline Phosphatase 151 H (39-117) U/L Lactate Dehydrogenase (135-225) U/L C-Reactive Protein (0.03-0.80) mg/dL NT-Pro-B Natriuret Pep 3408.0 H (<125.0) pg/mL Total Protein 8.7 H (5.9-8.4) gm/dL Globulin 5.4 H (2.2-3.7) gm/dL Albumin/Globulin Ratio (1.0-2.3) Urine Appearance (Clear) Urine Protein (Negative) mg/dL Urine Nitrate (Negative) Urine Urobilinogen mg/dL Ur Leukocyte Esterase (Negative) /uL Urine RBC (0-3) /hpf Urine WBC (0-4) /hpf Urine Bacteria (0) /hpf Hyaline Casts (0-2) /lph Urine Mucus (None) /hpf U [place] Prot/Creat Ratio (<0.20) 11/15/22 11/15/22 11/15/22 Range/Units 10:41 12:00 12:00 RBC (4.63-6.08) M/mcL Hgb (13.7-17.5) g/dL MCHC (31.0-36.0) g/dL RDW (11.5-14.5) % Lymph % (Auto) (15.5-49.0) % Lymph # (Auto) (1.50-4.80) K/mcL ABG Methemoglobin (0.4-1.5) % VBG pH (7.32-7.42) U POC VBG pH (7.32-7.42) VBG pCO2 (41.0-51.0) mmHg POC VBG pCO2 at Temp (41-51) VBG pO2 (25.0-40.0) mmHg POC VBG pO2 (25-40) VBG HCO3 (24.0-28.0) mmol/L POC VBG HCO3 (24-28) VBG Total CO2 (25.0-29.0) mmol/L POC VBG Total CO2 (25-29) VBG O2 Saturation (40.0-70.0) % POC Venous O2 Sat (40-70) POC VBG Base Excess (-2-2) Carboxyhemoglobin (0.0-1.5) % THgb POC Total CO2 (22-30) Creatinine 1.3 H (0.7-1.2) mg/dL POC Creatinine (0.6-1.2) Glucose 122 H (70-105) mg/dL POC Glucose (70-105) POC WB Ioniz Calcium (1.16-1.32) Total Bilirubin 1.2 H (0.1-1.0) mg/dL Direct Bilirubin 0.6 H (<0.3) mg/dL Alkaline Phosphatase 148 H (39-117) U/L Lactate Dehydrogenase 247 H (135-225) U/L C-Reactive Protein 3.50 H (0.03-0.80) mg/dL NT-Pro-B Natriuret Pep (<125.0) pg/mL Total Protein 8.7 H (5.9-8.4) gm/dL Globulin 5.3 H (2.2-3.7) gm/dL Albumin/Globulin Ratio 0.6 L (1.0-2.3) Urine Appearance Hazy A (Clear) Urine Protein 100 A (Negative) mg/dL Urine Nitrate Pos A (Negative) Urine Urobilinogen 4.0 A mg/dL Ur Leukocyte Esterase 75 A (Negative) /uL Urine RBC 4 H (0-3) /hpf Urine WBC 23 H (0-4) /hpf Urine Bacteria Mod A (0) /hpf Hyaline Casts 13 H (0-2) /lph Urine Mucus Mod A (None) /hpf U [place] Prot/Creat Ratio 0.75 H (<0.20) 11/15/22 11/15/22 Range/Units 13:09 16:00 RBC 4.51 L (4.63-6.08) M/mcL Hgb 11.9 L (13.7-17.5) g/dL MCHC 28.7 L (31.0-36.0) g/dL RDW 19.9 H (11.5-14.5) % Lymph % (Auto) 13.9 L (15.5-49.0) % Lymph # (Auto) 0.92 L (1.50-4.80) K/mcL ABG Methemoglobin 0.3 L (0.4-1.5) % VBG pH 7.26 L (7.32-7.42) U POC VBG pH (7.32-7.42) VBG pCO2 69.9 H* (41.0-51.0) mmHg POC VBG pCO2 at Temp (41-51) VBG pO2 50.9 H (25.0-40.0) mmHg POC VBG pO2 (25-40) VBG HCO3 30.4 H (24.0-28.0) mmol/L POC VBG HCO3 (24-28) VBG Total CO2 32.5 H (25.0-29.0) mmol/L POC VBG Total CO2 (25-29) VBG O2 Saturation 77.6 H (40.0-70.0) % POC Venous O2 Sat (40-70) POC VBG Base Excess (-2-2) Carboxyhemoglobin 5.4 H (0.0-1.5) % THgb POC Total CO2 (22-30) Creatinine (0.7-1.2) mg/dL POC Creatinine (0.6-1.2) Glucose (70-105) mg/dL POC Glucose (70-105) POC WB Ioniz Calcium (1.16-1.32) Total Bilirubin (0.1-1.0) mg/dL Direct Bilirubin (<0.3) mg/dL Alkaline Phosphatase (39-117) U/L Lactate Dehydrogenase (135-225) U/L C-Reactive Protein (0.03-0.80) mg/dL NT-Pro-B Natriuret Pep (<125.0) pg/mL Total Protein (5.9-8.4) gm/dL Globulin (2.2-3.7) gm/dL Albumin/Globulin Ratio (1.0-2.3) Urine Appearance (Clear) Urine Protein (Negative) mg/dL Urine Nitrate (Negative) Urine Urobilinogen mg/dL Ur Leukocyte Esterase (Negative) /uL Urine RBC (0-3) /hpf Urine WBC (0-4) /hpf Urine Bacteria (0) /hpf Hyaline Casts (0-2) /lph Urine Mucus (None) /hpf U [place] Prot/Creat Ratio (<0.20) Diabetes panel 11/15/22 11/15/22 Range/Units 09:47 12:00 Sodium 138 (133-145) mmol/L Potassium 3.8 (3.3-5.1) mmol/L Chloride 99 (96-108) mmol/L Carbon Dioxide 27 (22-30) mmol/L BUN 16 (6-20) mg/dL Creatinine 1.3 H (0.7-1.2) mg/dL Glucose 122 H (70-105) mg/dL Calcium 8.8 (8.6-10.4) mg/dL AST 21 20 (<40) U/L ALT 13 13 (<40) U/L Alkaline Phosphatase 151 H 148 H (39-117) U/L Total Protein 8.7 H 8.7 H (5.9-8.4) gm/dL Albumin 3.3 3.4 (3.2-5.2) gm/dL Triglycerides 51 (<150) mg/dL Calcium panel 11/15/22 11/15/22 Range/Units 09:47 12:00 Calcium 8.8 (8.6-10.4) mg/dL Phosphorus 3.1 (2.5-4.5) mg/dL Albumin 3.3 3.4 (3.2-5.2) gm/dL Pituitary panel 11/15/22 Range/Units 12:00 Sodium 138 (133-145) mmol/L Potassium 3.8 (3.3-5.1) mmol/L Chloride 99 (96-108) mmol/L Carbon Dioxide 27 (22-30) mmol/L BUN 16 (6-20) mg/dL Creatinine 1.3 H (0.7-1.2) mg/dL Glucose 122 H (70-105) mg/dL Calcium 8.8 (8.6-10.4) mg/dL Adrenal panel 11/15/22 11/15/22 Range/Units 09:47 12:00 Sodium 138 (133-145) mmol/L Potassium 3.8 (3.3-5.1) mmol/L Chloride 99 (96-108) mmol/L Carbon Dioxide 27 (22-30) mmol/L BUN 16 (6-20) mg/dL Creatinine 1.3 H (0.7-1.2) mg/dL Glucose 122 H (70-105) mg/dL Calcium 8.8 (8.6-10.4) mg/dL Total Bilirubin 1.2 H 1.2 H (0.1-1.0) mg/dL AST 21 20 (<40) U/L ALT 13 13 (<40) U/L Alkaline Phosphatase 151 H 148 H (39-117) U/L Total Protein 8.7 H 8.7 H (5.9-8.4) gm/dL Albumin 3.3 3.4 (3.2-5.2) gm/dL All other labs normal. A/P Narrative A/P Narrative: 47-year-old male with massive total body anasarca with an exacerbation of his congestive heart failure. I have been asked to place a Romero catheter to help with the patient's diuresis. Patient is not willing to allow me to attempt this without anesthesia. I had an extended (greater than 30 minutes) conversation with the patient regarding his options, including continued incontinence and voiding into his diaper versus me attempting to place a catheter at the bedside which is unlikely to be successful, versus conscious sedation or anesthetic and attempted placement of catheter. Patient understands he is at very high risk for sedation or anesthetic. He would like to think about these options. Time Spent With Patient Time: Total time spent is greater than 50% in coordination of care (as documented) at patient's floor/unit and/or counseling patient: Initial: Total time with patient: 40 - 54 minutes
[2022-11-15] MEDS: HEPARIN 5,000 UNIT/ML VIAL SQ SCH (21:26)
[2022-11-15] MEDS: DOCUSATE SODIUM 100 MG CAPSULE PO SCH (21:26)
[2022-11-16] MEDS: 0.9 % SODIUM CHLORIDE 10 ML SYRINGE IV SCH ×3 (06:01→20:39)
[2022-11-16 06:21] LABS: Basophils # (Auto) 0.06 K/mcL (0.00-0.30); Basophils % (Auto) 0.8 % (0.0-2.0); Eosinophils # (Auto) 0.12 K/mcL (0.00-0.70); Eosinophils % (Auto) 1.6 % (0.0-7.0); Hematocrit 40.7 % (40.1-51.0); Hemoglobin 11.2 g/dL (13.7-17.5); Lymphocytes # (Auto) 0.89 K/mcL (1.50-4.80); Lymphocytes % (Auto) 11.8 % (15.5-49.0); Mean Cell Volume 95.1 fL (80.0-100.0); Mean Corpuscular HGB Conc 27.5 g/dL (31.0-36.0); Mean Platelet Volume 9.4 fL (8.8-12.5); Monocytes # (Auto) 0.76 K/mcL (0.10-0.90); Monocytes % (Auto) 10.1 % (1.0-12.0); Platelet Count 165 K/mcL (140-440); RBC 4.28 M/mcL (4.63-6.08); Red Cell Distribution Width 19.6 % (11.5-14.5); WBC 7.5 K/mcL (4.5-11.0)
[2022-11-16 06:34] LABS: ALT/SGPT 11 U/L (<40); AST/SGOT 19 U/L (<40); Albumin 3.1 gm/dL (3.2-5.2); Albumin/Globulin Ratio 0.6 (1.0-2.3); Alkaline Phosphatase 153 U/L (39-117); Bilirubin,Direct 0.6 mg/dL (<0.3); Blood Urea Nitrogen 14 mg/dL (6-20); Calcium 8.4 mg/dL (8.6-10.4); Carbon Dioxide 33 mmol/L (22-30); Chloride 98 mmol/L (96-108); Globulin 5.4 gm/dL (2.2-3.7); Glomerular Filtration Rate 65; Glucose 133 mg/dL (70-105); Lactate Dehydrogenase 222 U/L (135-225); Phosphorous 4.4 mg/dL (2.5-4.5); Triglycerides 58 mg/dL (<150); Uric Acid 7.6 mg/dL (2.5-8.0)
[2022-11-16] MEDS ORDERED: POTASSIUM CHLORIDE 20 MEQ TABLET PO SCH (08:00)
[2022-11-16] MEDS ORDERED: HYDROcodone/APAP 5/325MG TABLET PO PRN (08:40)
[2022-11-16] MEDS ORDERED: HYDROmorphone 0.5 MG/0.5 ML SYRINGE IV PRN (08:40)
[2022-11-16] MEDS: DOCUSATE SODIUM 100 MG CAPSULE PO SCH ×2 (08:43→20:37)
[2022-11-16] MEDS: HEPARIN 5,000 UNIT/ML VIAL SQ SCH ×2 (08:50→20:37)
[2022-11-16] MEDS ORDERED: cefTRIAXone 2 GM in DEXTROSE 5% IN WATER 50 ML IV SCH (09:00)
--- NOTE | 2022-11-16 12:40 | Urology Progress Note ---
SUBJECTIVE Subjective Patient information: Note initiated : 11/16/22 at 12:34 pm Service Date, if different from initiated Date: [] Patient: Mendel Ingram 47 y/o M admitted on 11/15/22 for CHF, weakness. Chief Complaint: [] Interval history: Patient states he is currently being diuresed and is incontinent of urine. He denies any difficulty voiding. Denies any dysuria or hematuria. Constitutional Vitals: Vital Signs Temp Pulse Resp BP Pulse Ox O2 Del Method O2 Flow Rate 96.6 F L 112 H 24 H 125/76 97 BiPAP 3 11/16/22 12:12 11/16/22 10:01 11/16/22 12:30 11/16/22 12:10 11/16/22 12:30 11/16/22 12:30 11/16/22 07:51 Period Temp Pulse Resp BP Sys/[place] Pulse Ox O2 Del Method O2 Flow Rate Last 24 Hr 96.6 F-98 F 89-117 9-32 101-166/63-143 90-100 BiPAP-Nasal Cannula 3-3 Intake and Output 11/16/22 11/16/22 11/16/22 03:59 11:59 19:59 Intake Total 60 55 Output Total 1353 1875 210 Balance -1293 -1820 -210 Weight 239.497 kg Intake & Output: Intake & Output 11/16/22 11/16/22 11/16/22 03:59 11:59 19:59 Intake Total 60 55 Output Total 1353 1875 210 Balance -1293 -1820 -210 Weight 239.497 kg Intake: IV 60 55 Lasix 250 mg In Sodium Chloride 60 5 0.9% 225 ml @ 5 MG/HR 5 mls/hr IV Q24H [facility] Rx#:[id number] Rocephin 2 gm In Dextrose 5% in 50 Water 50 ml @ 100 mls/hr IV Q24H PINK[facility] Rx#:[id number] Output: Urine Catheter Amount 1350 270 Void Amount 1605 210 # of times incontinent of urine 3 Other: Urine Appearance Clear Clear Clear Urine Color Yellow Yellow Yellow Pale Urine Odor Normal Normal Normal Stool Size Moderate Stool Color Brown Stool Consistency Dry and Hard # Voids 1 # Bowel Movements 1 General appearance: moderate distress (Shortness of breath) and obese GI/Abdominal Additional comments: No suprapubic tenderness A/P Assessment and plan (1) Urethral stricture: Status: Acute (2) Morbid obesity: Status: Acute Narrative A/P Narrative: 47-year-old male admitted for severe shortness of breath due to an exacerbation of his congestive heart failure. He is currently being diuresed by the hospitalist service and because of his obesity, scrotal edema, history of urethral stricture Romero catheter was unable to be placed at the bedside. I once again had an extended conversation with the patient regarding his options for urine output management. He does not want to attempt bedside catheter placement. We discussed once again the risks of conscious sedation and general anesthetic. Patient has requested to discuss anesthetic options with anesthesia service. I informed patient that I will arrange for the temperature control inspector to come by and talk with the patient. Time Spent With Patient Time: Total time spent is greater than 50% in coordination of care (as documented) at patient's floor/unit and/or counseling patient:
[2022-11-16] MEDS ORDERED: VANCOMYCIN PER PHARMACY IV SCH (14:37)
[2022-11-16] MEDS: FUROSEMIDE 250 MG in 0.9 % SODIUM CHLORIDE 225 ML IV SCH ×2 (14:37→14:47)
[2022-11-16] MEDS ORDERED: VANCOMYCIN 2,000 MG in 0.9 % SODIUM CHLORIDE 500 ML IV ONE (16:00)
--- NOTE | 2022-11-16 16:13 | Discharge Summary ---
Discharge Provider Provider IMPORTANT FOLLOW-UP INFORMATION FOR PCP: Patient information: Note initiated : 11/16/22 at 4:01 pm Service Date, if different from initiated Date: [] Patient: Mendel Ingram a 47 y/o M admitted on 11/15/22 for CHF, weakness. Chief Complaint: [] Date of admission: 11/15/22 14:22 Discharge date: 11/16/22 Primary care physician: Virginia Sanchez Consults: 11/15/22 Consult to Physician [CONS] Stat Comment: Consulting Provider: Torres Pino Reason For Exam: Physician to Consult Consult to Physician [CONS] Stat Comment: Romero catheter placement for diuresis. Consulting Provider: Mio Jenkins Reason For Exam: Physician to Consult COURSE Hospital Course Hospital course: Mr. Ingram is a 47 year old male with a history of heart failure with reduced ejec tion fraction, hypertension, obesity, obstructive sleep apnea currently not treated with CPAP who presented to the emergency department with a chief complaint of shortness of breath. The patient says that he ran out of his medications and has not been able to get them refilled. In the emergency department, the patient was noted to have an oxygen requirement. Chest x-ray showed pulmonary vascular congestion. Patient does appear to have a mild acute kidney injury on chemistry labs. A venous blood gas showed a pH of 7.28 and a PCO2 of 69.1. Lactic acid was normal. NT pro BNP was elevated at 3800. Troponin level was normal. Hospital medicine was consulted to admit the patient for acute on chronic heart failure complicated by acute hypoxemic respiratory failure as well as hypercapnic respiratory failure. 11/16 The patient was started on a Lasix infusion at admission, BiPAP which was continued overnight. The patient had VBG this morning consistent with worsening hypercapnic respiratory failure and the patient was difficult to arouse. ABG obtained and showed a pH of 7.20 with a PCO2 of 95.7. Respiratory therapy adjusted BiPAP settings, repeat ABG showed a pH of 7.25 and a PCO2 of 83.9, modestly improved from the earlier ABG. We initially had planned to intubate the patient for mechanical ventilation however given the improvement in the ABG and also in mental status the decision was made to continue to monitor the patient on BiPAP. The patient's cognitive status proved somewhat throughout the day however continues to be difficult to arouse when he falls asleep. I did add vancomycin IV onto ceftriaxone for possible cellulitis in the patient's inner thighs and groin area. Unclear if this is cellulitis or skin irritation from urinary incontinence, favor skin irritation as the patient has not had a fever or leukocytosis. Urology evaluated the patient for Romero catheter placement and felt that anesthesia would be required. Anesthesia evaluated the patient and declined to place a Romero catheter due to concern the patient would require intubation with anesthesia. The patient is diuresing well on the Lasix infusion however unfortunately there is ongoing incontinence because of the patient's bedbound status. The patient's anatomy is not favorable for either Romero catheter placement or condom catheter. The patient's RN did Raciel rig a bag in the patient's groin area to collect urine however there continues to be a significant amount of leaking. Given these concerns and the patient's hypercapnic respiratory failure we decided that transfer to a higher level of care would be appropriate. [facility] in [place], [place], does have a bed available. I discussed the patient with the social media sr strategy manager on-call at [facility], the patient was accepted for transfer. At the patient's bedside, I discussed transfer to a higher level of care with both the patient and his family members. The patient's mental status has improved significantly since this morning. We will wait for transport staff to evaluate the patient to determine if he may transport without further interventions including intubation and or Romero catheter placement. When the patient arrives to [facility] he will require ongoing diuresis and close monitoring of the patient's respiratory status. The patient is at high risk for requiring intubation and mechanical ventilation for acute on chronic hypercapnic respiratory failure. The patient will require a Romero catheter placement, probably by urology possibly under anesthesia. The patient does have a urethral stricture which will also complicate Romero catheter placement. I also think the patient should be evaluated by cardiology for heart failure with reduced ejection fraction. Physical exam Head: Atraumatic, normal inspection. Eyes: normal appearance, no scleral icterus. Neck: full ROM Respiratory: 3 L/min nasal cannula oxygen supplementation, diminished breath sounds bilaterally Cardiovascular: normal rate and rhythm, S1, S2. GI/Abdominal: Obesely soft, nontender, no guarding. : Scrotal edema Extremities: Bilateral lower extremity pitting edema, full range of motion, nontender. Neurological: CN II-XII intact, intact motor, intact sensation. Psychiatric: normal mood. Skin: Erythema in bilateral thighs, mildly tender, warm Discharge diagnosis: Acute on chronic hypercapnic respiratory failure Secondary discharge diagnosis: Acute on chronic systolic heart failure Anasarca Morbid obesity Time Spent with Patient Time attestation: Total time spent providing and/or coordinating discharge services: Time spent: Greater than 30 minutes EXAM Constitutional Vitals: Temp Pulse Resp BP Pulse Ox O2 Del Method O2 Flow Rate 96.6 F L 105 H 20 121/69 92 BiPAP 3 11/16/22 12:12 11/16/22 14:15 11/16/22 14:38 11/16/22 14:01 11/16/22 14:38 11/16/22 14:38 11/16/22 07:51 Discharge Data Data Completed and Pending Labs on day of discharge: Labs from last 24 hours 11/16/22 11/16/22 11/16/22 12:10 10:56 05:22 WBC RBC Hgb Hct MCV MCH MCHC RDW Plt Count MPV Immature Gran % (Auto) Neut % (Auto) Lymph % (Auto) [place] % (Auto) Eos % (Auto) Baso % (Auto) Lymph # (Auto) [place] # (Auto) Eos # (Auto) Baso # (Auto) Immature Gran # Absolute Neutrophils POC pH 7.25 L 7.20 L POC pCO2 83.9 H* 95.7 H* POC pO2 77 L 88 POC HCO3 36.9 H 37.5 H POC Total CO2 39.0 H 40.0 H POC ABG Base Excess 10.0 H 9.0 H ABG Methemoglobin ABG Lactic Acid 0.3 L 0.3 L VBG pH POC VBG pH VBG pCO2 POC VBG pCO2 at Temp VBG pO2 POC VBG pO2 VBG HCO3 POC VBG HCO3 VBG Total CO2 POC VBG Total CO2 VBG O2 Saturation POC Venous O2 Sat VBG Base Excess POC VBG Base Excess VBG Lactic Acid Hgb O2 Saturation 92.0 L 93.0 L Carboxyhemoglobin Total Hemoglobin Sodium 136 Potassium 4.1 Chloride 98 Carbon Dioxide 33 H Anion Gap 5.0 L BUN 14 Creatinine 1.3 H GFR Calculation 65 Glucose 133 H Uric Acid 7.6 Calcium 8.4 L Phosphorus 4.4 Magnesium 2.0 Total Bilirubin 1.0 Direct Bilirubin 0.6 H GGT 31 AST 19 ALT 11 Alkaline Phosphatase 153 H Lactate Dehydrogenase 222 Total Protein 8.5 H Albumin 3.1 L Globulin 5.4 H Albumin/Globulin Ratio 0.6 L Triglycerides 58 Ur Random Creatinine U Random Total Protein U [place] Prot/Creat Ratio 11/16/22 11/16/22 11/15/22 05:22 05:13 21:17 WBC 7.5 RBC 4.28 L Hgb 11.2 L Hct 40.7 MCV 95.1 MCH 26.2 MCHC 27.5 L RDW 19.6 H Plt Count 165 MPV 9.4 Immature Gran % (Auto) 0.7 H Neut % (Auto) 75.0 Lymph % (Auto) 11.8 L [place] % (Auto) 10.1 Eos % (Auto) 1.6 Baso % (Auto) 0.8 Lymph # (Auto) 0.89 L [place] # (Auto) 0.76 Eos # (Auto) 0.12 Baso # (Auto) 0.06 Immature Gran # 0.05 Absolute Neutrophils 5.65 POC pH POC pCO2 POC pO2 POC HCO3 POC Total CO2 POC ABG Base Excess ABG Methemoglobin ABG Lactic Acid VBG pH POC VBG pH 7.25 L 7.29 L VBG pCO2 POC VBG pCO2 at Temp 81.9 H* 75.8 H* VBG pO2 POC VBG pO2 106 H 104 H VBG HCO3 POC VBG HCO3 36.1 H 36.6 H VBG Total CO2 POC VBG Total CO2 39.0 H 39.0 H VBG O2 Saturation POC Venous O2 Sat 97.0 H 97.0 H VBG Base Excess POC VBG Base Excess 9.0 H* 10.0 H* VBG Lactic Acid 0.4 L 0.4 L Hgb O2 Saturation Carboxyhemoglobin Total Hemoglobin Sodium Potassium Chloride Carbon Dioxide Anion Gap BUN Creatinine GFR Calculation Glucose Uric Acid Calcium Phosphorus Magnesium Total Bilirubin Direct Bilirubin GGT AST ALT Alkaline Phosphatase Lactate Dehydrogenase Total Protein Albumin Globulin Albumin/Globulin Ratio Triglycerides Ur Random Creatinine U Random Total Protein U [place] Prot/Creat Ratio 11/15/22 11/15/22 16:00 12:00 WBC RBC Hgb Hct MCV MCH MCHC RDW Plt Count MPV Immature Gran % (Auto) Neut % (Auto) Lymph % (Auto) [place] % (Auto) Eos % (Auto) Baso % (Auto) Lymph # (Auto) [place] # (Auto) Eos # (Auto) Baso # (Auto) Immature Gran # Absolute Neutrophils POC pH POC pCO2 POC pO2 POC HCO3 POC Total CO2 POC ABG Base Excess ABG Methemoglobin 0.3 L ABG Lactic Acid VBG pH 7.26 L POC VBG pH VBG pCO2 69.9 H* POC VBG pCO2 at Temp VBG pO2 50.9 H POC VBG pO2 VBG HCO3 30.4 H POC VBG HCO3 VBG Total CO2 32.5 H POC VBG Total CO2 VBG O2 Saturation 77.6 H POC Venous O2 Sat VBG Base Excess 1 POC VBG Base Excess VBG Lactic Acid Hgb O2 Saturation Carboxyhemoglobin 5.4 H Total Hemoglobin 13.5 Sodium Potassium Chloride Carbon Dioxide Anion Gap BUN Creatinine GFR Calculation Glucose Uric Acid Calcium Phosphorus Magnesium Total Bilirubin Direct Bilirubin GGT AST ALT Alkaline Phosphatase Lactate Dehydrogenase Total Protein Albumin Globulin Albumin/Globulin Ratio Triglycerides Ur Random Creatinine 110.4 U Random Total Protein 83 U [place] Prot/Creat Ratio 0.75 H Discharge Plan Patient/Caregiver Discharge Instructions Diet: NPO Prescriptions: Continued furosemide 40 mg Tablet 40 mg PO BIDD Qty: 60 0RF spironolactone 25 mg Tablet 25 mg PO DAILY Qty: 30 0RF losartan 25 mg Tablet 25 mg PO DAILY Qty: 30 0RF metoprolol succinate 25 mg Tablet Extended Release 24 Hr 12.5 mg PO DAILY Qty: 30 0RF Follow Up Plan Follow up with: Virginia Sanchez ARNP [Primary Care Provider] - Patient Disposition: Xfer Acute [facility] Prognosis: Fair Overall status at discharge: patient is not back to baseline Discharge Orders: Discharge Order (Routine); Ordered 11/16/22 Ordered By: Torres Pino
[2022-11-17] MEDS ORDERED: VANCOMYCIN 1,000 MG in 0.9 % SODIUM CHLORIDE 250 ML IV ONE
--- NOTE | 2022-11-17 06:42 | EKG ---
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
[2022-11-17] MEDS ORDERED: VANCOMYCIN 2,000 MG in 0.9 % SODIUM CHLORIDE 500 ML IV SCH (10:00)
== END 2022-11-16 21:55 | disposition short-term general hospital (02) | DRG 189 ==
LOC: ED 09:15 → ICU 14:22
PROVIDERS: ADMIT Internal Medicine; ATTEND Internal Medicine